=== PATIENT | male | born 1940 | race Caucasian/White ===

== ENCOUNTER 2019-10-02 19:33 | Inpatient (IN) | payer BC ==
--- OUTSIDE RECORDS SUMMARY | 2019-10-02 19:35 | XMS REPORT ---
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
--- OUTSIDE RECORDS SUMMARY | 2019-10-02 19:35 | XMS REPORT | Continuity of Care Document ---
:1940 Author Organization [facility] t Address [address] [place] [address] Care Team Providers Name Role Phone Unavailable Unavailable Unavailable Problems Condition Condition Condition Status Onset Resolution Last Treating Co mments Source Name Details Category Date Date Treatment Clinician Date BPH NOS BPH NOS Problem Active [facility] w[facility] ur [facility] - obs/LUTS obs/LUTS [facility] Allergies, Adverse Reactions, Alerts This patient has no known allergies or adverse reactions. Medications Ordered Filled Start Stop Current Ordering Indication Dosage Frequency Signature Comments Components Source Medication Medication Date Date Medication? Clinician (SIG) Name Name Tamsulosin Tamsulosin Jhonny [address] [facility] HCl HCl 04-04 [facility]a [facility] - 00:00: 00:00 [facility] 00 :[facility] Melatonin Melatonin Yes Jhonny [address] [facility] Elaina in the [facility] - evening [facility] Ranitidine Ranitidine Yes Jhonny [address] [facility] 75 75 Davis as needed kes - [facility] Spiriva Spiriva Yes Jhonny [address] HandiHaler HandiHaler [facility] by [facility] the ent capsule Clinics using the HandiHaler device Metoprolol Metoprolol Yes Jhonny [address] [facility] Tartrate Tartrate [facility] with food [facility] - [facility] tylenol tylenol Yes Jhonny [address] [facility] k[facility] - [facility] Amlodipine Amlodipine Yes Jhonny [address] [facility] Besylate Besylate [facility] - [facility] Procedures This patient has no known procedures. Encounters Start End Encounter Admission Attending Care Care Encounter Source Date/Time Date/Time Type Type Clinicians Facility Department ID 2019-07-05 2019-07-05 [facility] [id number] [facility] 13:11:00 13:11:00 t Specialty/U Haley kes - Specialty rology Memori a /Urology Clinic l Clinic Outpati ent Clinics 2019-05-16 2019-05-16 [facility] [id number] [facility] 14:24:00 14:24:00 t Specialty/U Haley kes - Specialty rology Memori a /Urology Clinic l Clinic Outpati ent Clinics 2019-04-17 2019-04-17 [facility] [id number] [facility] 11:33:00 11:33:00 t Specialty/U Haley kes - Specialty rology Memori a /Urology Clinic l Clinic Outpati ent Clinics 2019-04-13 2019-04-13 [facility] [id number] [facility] 16:15:00 16:15:00 t Specialty/U Haley kes - Specialty rology Memori a /Urology Clinic l Clinic Outpati ent Clinics 2019-04-04 2019-04-04 [facility] [id number] [facility] 15:00:00 15:00:00 t Specialty/U Haley kes - Specialty rology Memori a /Urology Clinic l Clinic Outpati ent Clinics 2019-03-13 2019-03-13 [facility] [id number] [facility] 11:23:00 11:23:00 t Specialty/U Haley kes - Specialty rology Memori a /Urology Clinic l Clinic Outpati ent Clinics 2019-03-10 2019-03-10 [facility] [id number] [facility] 10:43:00 10:43:00 t Specialty/U Haley kes - Specialty rology Memori a /Urology Clinic l Clinic Outpati ent Clinics 2019-02-23 2019-02-23 [facility] [id number] [facility] 14:00:00 14:00:00 t Specialty/U Haley kes - Specialty rology Memori a /Urology Clinic l Clinic Outpati ent Clinics Results This patient has no known results.
[2019-10-02] MEDS ORDERED: ONDANSETRON 4 MG/2 ML VIAL ONE (21:04)
[2019-10-02] MEDS ORDERED: PANTOPRAZOLE 40 MG INJ ONE (21:05)
--- NOTE | 2019-10-02 21:08 | RAD REPORT ---
EXAM DESCRIPTION: RAD - Chest Single View - 10/02/2019 8:57 pm CLINICAL HISTORY: CHEST PAIN Chest pain. COMPARISON: Chest Pa And Lat (2 Views) dated 02/01/2019; Abdomen 1 View (KUB) dated 01/06/2019; Ches t Pa And Lat (2 Views) dated 01/06/2019; CHEST PA AND LAT 2 VIEW dated 05/11/2012 FINDINGS: Portable technique limits examination quality. 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 The heart is normal in size. No displaced fractures. IMPRESSION: Mild diffuse COPD.
[2019-10-02 21:23] LABS: Absolute Lymphocytes (CBC) 0.8 K/uL (0.7-4.9); Basophils % 0.5 % (0-1.3); Hematocrit 36.9 % (39.6-49.0); Lymphocytes % 14.8 % (15.3-44.8); MPV 8.9 fL (7.6-11.3); RBC Red Blood Cell Count 3.71 M/uL (4.33-5.43)
[2019-10-02 21:24] LABS: Protime INR 0.91
[2019-10-02 22:08] LABS: ALT/SGPT 41 U/L (12-78); AST/SGOT 41 U/L (15-37); Albumin 3.8 g/dL (3.4-5.0); Alkaline Phosphatase 53 U/L (45-117); BUN Blood Urea Nitrogen 10 mg/dL (7-18); Bicarbonate 21 mmol/L (21-32); Bilirubin Direct 0.5 mg/dL (0-0.2); Bilirubin Total 1.8 mg/dL (0.2-1.0); Glucose Level 89 mg/dL (74-106); Magnesium 1.8 mg/dL (1.8-2.4); NT PRO-BNP 357 pg/mL (<450); Protein, Total 6.9 g/dL (6.4-8.2); Troponin (Emerg Dept Use Only) < 0.02 ng/mL (0.0-0.045)
[2019-10-02 22:09] LABS: Sodium Level 115 mmol/L (136-145)
[2019-10-02] MEDS ORDERED: FENTANYL CITR 100 MCG/2 ML ONE (22:15)
[2019-10-02] MEDS ORDERED: NA CHLORIDE 0.9% 1,000 ML ONE (22:22)
--- NOTE | 2019-10-02 22:37 | ER ---
Nurse's Notes [facility] Name: Frank Manzanares Jr Age: 78 yrs Sex: Male : 1940 Arrival Date: 10/02/2019 Time: 19:37 Bed 23 Private MD: Pankaj Carlos C Diagnosis: Hyponatremia;Muscle weakness (generalized);Vomiting;Altered mental status, unspecified Presentation: 10/01 19:37 Chief complaint: EMS states: pt was seen in the providers office for difficulty sg urinating, had a catheter inserted to drain bladder, blood tinged urine with bright red clots. At home after the visit the patient started having general weakness and was unable to get into the car to come to the ED so EMS was contacted. EMS report the patient to have CP once arrived at the ED. Coronavirus screen: Client denies travel out of the [place] in the last 14 days. chills, muscle pain, Client presents with at least one sign or symptom that may indicate coronavirus-19. Ebola Screen: Patient negative for fever greater than or equal to 101.5 degrees Fahrenheit, and additional compatible Ebola Virus Disease symptoms Patient denies exposure to infectious person. Patient denies travel to an Ebola-affected area in the 21 days before illness onset. No symptoms or risks identified at this time. Initial Sepsis Screen: Does the patient meet any 2 criteria? No. Patient's initial sepsis screen is negative. Does the patient have a suspected source of infection? Yes: Dysuria/Frequency/Urgency/UTI. Risk Assessment: Do you want to hurt yourself or someone else? Patient reports no desire to harm self or others. Onset of symptoms was October 02, 2019. Care prior to arrival: None. Transition of care: patient was not received from another setting of care. 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 - Social history:: Smoking status: Patient denies any tobacco usage or history of. Smoking status: Patient reports the use of cigarette tobacco products, smokes one-half pack cigarettes per day. Screenin:05 Abuse screen: Denies threats or abuse. Denies injuries from another. Nutritional lp1 screening: No deficits noted. Tuberculosis screening: No symptoms or risk factors identified. Fall Risk None identified. Assessment: 20:04 Reassessment: Marlyn- Daughter for [phone]. sg 20:05 General: Appears uncomfortable, Behavior is appropriate for age. Pain: Complains of lp1 pain in suprapubic area Pain does not radiate. Pain began gradually. Neuro: Level of Consciousness is awake, alert, obeys commands, Oriented to person, place, situation. Cardiovascular: Patient's skin is warm and dry. Respiratory: Respiratory effort is even. GI: Abdomen is non-distended. : Reports inability to void, since 1400. EENT: No signs and/or symptoms were reported regarding the EENT system. Derm: Skin is pink, warm \\T\\ dry. Musculoskeletal: No deficits noted. 21:00 Reassessment: Patient complaint of neck pain and nausea; "I think my acid reflux is lp1 acting up"; Provider notified. 21:33 Reassessment: Patient's HOB readjusted for comfort; given cell phone to call daughter; lp1 complaint of pain to back of neck, states chronic pain; Provider notified. 22:40 Reassessment: Verbal order from provider to insert Church catheter. 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 10/02 00:00 Reassessment: Patient appears in no apparent distress at this time. Neuro: Level of lp1 Consciousness is awake, alert, obeys commands, Oriented to person, place, situation, Patient seems frustrated at ability to get words out, answering appropriately; speech is clear. 00:00 Reassessment: Aware of pending admission. lp1 01:06 Reassessment: Patient appears in no apparent distress at this time. Patient resting, lp1 eyes closed, respirations even. Vital Signs: 10/01 19:37 BP 136 / 77; Pulse 77; Resp 16; Temp 97.6(O); Pulse Ox 100% on R/A; sg 20:00 BP 151 / 81; Pulse 77; Resp 20; Pulse Ox 99% on R/A; lp1 21:00 BP 158 / 83; Pulse 75; Resp 20; Pulse Ox 99% on R/A; lp1 22:00 BP 123 / 94; Pulse 78; Resp 20; Pulse Ox 98% on R/A; lp1 23:00 BP 177 / 98; Pulse 84; Resp 20; Pulse Ox 97% on R/A; lp1 10/02 00:00 BP 166 / 88; Pulse 75; Resp 16; Temp 98.2(O); Pulse Ox 97% on R/A; lp1 01:06 BP 126 / 85; Pulse 75; Resp 15; Pulse Ox 96% on R/A; lp1 ED Course: 10/01 19:37 Patient arrived in ED. sg 19:37 Pankaj Carlos MD is Private Physician. sg 19:37 Arm band placed on. sg 19:40 Triage completed. sg 19:45 monitoring analyst on. Pulse ox on. NIBP on. lp1 19:45 Patient has correct armband on for positive identification. Placed in gown. Bed in low lp1 position. Call light in reach. 19:54 Marlyn Dill, RN is Primary Nurse. lp1 20:05 Patient maintains SpO2 saturation greater than 95% on room air. lp1 20:07 Bladder scan completed. 154 ml. lp1 20:29 Aureliano Her PA is PHCP. jr8 20:29 Kevin Martinez MD is Attending Physician. jr8 20:45 Missed attempt(s): 20 gauge in right forearm. lp1 20:57 XRAY Chest (1 view) In Process Unspecified. EDMS 21:00 Inserted saline lock: 20 gauge in right antecubital area, using aseptic technique. lp1 21:13 Lab(s) recollected, by me, sent to lab. sg 22:09 Notified Nurse Practitioner and/or Physician Vice President Medical Affairs of a critical lab result(s), NA sg 115, CL 80. 22:35 Pankaj Carlos MD is Hospitalizing Provider. jr8 22:45 Church cath inserted, using sterile technique, 16 Fr., by ia, balloon inflated, to lp1 gravity drainage, urine specimen collected. other blood noted in urine. 22:49 No provider procedures requiring assistance completed. Patient admitted, IV remains in lp1 place. 23:00 Inserted saline lock: 22 gauge in left forearm, using aseptic technique. lp1 Administered Medications: 21:00 Drug: ProTONIX 40 mg Route: IVP; Site: right antecubital; lp1 22:24 Follow up: Response: No adverse reaction lp1 21:00 Drug: Zofran (Ondansetron) 4 mg Route: IVP; Site: right antecubital; lp1 22:24 Follow up: Response: No adverse reaction lp1 22:00 Drug: fentaNYL (PF) 25 mcg Route: IVP; Site: right antecubital; lp1 22:53 Follow up: Response: No adverse reaction; Pain is decreased lp1 22:10 Drug: NS 0.9% 1000 ml Route: IV; Rate: 1 bolus; Site: right antecubital; lp1 10/02 00:18 Follow up: IV Status: Completed infusion; IV Intake: 1000ml lp1 10/01 23:50 Drug: Rocephin 1 grams Route: IV; Rate: calculated rate; Site: left forearm; lp1 18 00:18 Follow up: IV Status: Completed infusion; IV Intake: 10ml lp1 00:19 Drug: NS 0.9% 1000 ml Route: IV; Rate: 75 ml/hr; Site: left forearm; lp1 01:08 Follow up: IV Status: Infusion continued upon admission lp1 Intake: 00:18 IV: 10ml; Total: 10ml. lp1 00:18 IV: 1000ml; Total: 1010ml. lp1 Output: 01:45 Urine: 750ml (Church); Total: 750ml. lp1 Outcome: 10/01 22:36 Decision to Hospitalize by Provider. jr8 22:49 Condition: stable lp1 22:49 Instructed on the need for admit. 10/02 01:30 Admitted to Med/surg via stretcher, room 214, with chart, Report called to Zoey Alexander RN 01:49 Patient left the ED. [facility] Signatures: Dispatcher [employer] EDFrancisco Gong RN RN Marlyn Dill RN RN [facility] Aureliano Her PA PA jr8 Corrections: (The following items were deleted from the chart) 10/01 22:24 21:00 fentaNYL (PF) 25 mcg IVP in right antecubital lp1 [facility] 22:54 22:45 Church cath inserted, using sterile technique, 16 Fr., by ia, balloon inflated, to lp1 gravity drainage, urine specimen collected. [facility] 23:17 19:37 Coronavirus screen: Client denies travel out of the [place] in the last 14 days. At this time, the client does not indicate any symptoms associated with coronavirus-19. 10/02 01:06 10/01 19:41 Home Meds: None; [facility] 10/02 01:06 10/01 19:41 PMHx: None; [facility]
--- NOTE | 2019-10-02 22:37 | EDPHYS ---
Physician Documentation [facility] Name: Frank Manzanares Jr Age: 78 yrs Sex: Male : 1940 Arrival Date: 10/02/2019 Time: 19:37 Bed 23 Private MD: Pankaj Carlos C ED Physician Kevin Martinez HPI: 10/01 23:10 This 78 yrs old Male presents to ER via EMS with complaints of General jr8 Weakness, Chest Pain > 30 y/o. 23:10 The patient presents with urinary symptoms, retention, unable to void, Last void was jr8 this morning. Onset: The symptoms/episode began/occurred acutely, today. Modifying factors: The symptoms are alleviated by nothing, the symptoms are aggravated by urinating. Associated signs and symptoms: Pertinent positives: hematuria. Severity of symptoms: At their worst the symptoms were moderate, in the emergency department the symptoms are unchanged. The patient has experienced similar episodes in the past, a few times. The patient has been recently seen by a physician:. Patient stated that he saw urology today and had bladder washout for known bladder mass. Suppose to have biopsy in the future. Was having mild retention at the time. Las void since then was late morning/early afternoon. Stated that he is now having retention again. Stated that since then he has also felt unwell in general. Feels dazed, fatigued, generally weak, and now with vomiting . 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 - Social history:: Smoking status: Patient denies any tobacco usage or history of. Smoking status: Patient reports the use of cigarette tobacco products, smokes one-half pack cigarettes per day. ROS: 23:10 Eyes: Negative for injury, pain, redness, and discharge, ENT: Negative for injury, jr8 pain, and discharge, Neck: Negative for injury, pain, and swelling, Respiratory: Negative for shortness of breath, cough, wheezing, and pleuritic chest pain, Back: Negative for injury and pain, MS/Extremity: Negative for injury and deformity, Skin: Negative for injury, rash, and discoloration. 23:10 Cardiovascular: Positive for chest pain, Negative for edema, orthopnea, palpitations, paroxysmal nocturnal dyspnea. 23:10 Abdomen/GI: Positive for nausea, vomiting, Negative for abdominal pain, diarrhea. 23:10 : Positive for small amounts, hematuria, difficulty urinating. 23:10 Neuro: Positive for altered mental status. Exam: 23:10 Eyes: Pupils equal round and reactive to light, extra-ocular motions intact. Lids and jr8 lashes normal. Conjunctiva and sclera are non-icteric and not injected. Cornea within normal limits. Periorbital areas with no swelling, redness, or edema. ENT: Nares patent. No nasal discharge, no septal abnormalities noted. Tympanic membranes are normal and external auditory canals are clear. Oropharynx with no redness, swelling, or masses, exudates, or evidence of obstruction, uvula midline. Mucous membranes moist. Neck: Trachea midline, no thyromegaly or masses palpated, and no cervical lymphadenopathy. Supple, full range of motion without nuchal rigidity, or vertebral point tenderness. No Meningismus. Cardiovascular: Regular rate and rhythm with a normal S1 and S2. No gallops, murmurs, or rubs. Normal PMI, no JVD. No pulse deficits. Respiratory: Lungs have equal breath sounds bilaterally, clear to auscultation and percussion. No rales, rhonchi or wheezes noted. No increased work of breathing, no retractions or nasal flaring. Abdomen/GI: Soft, non-tender, with normal bowel sounds. No distension or tympany. No guarding or rebound. No evidence of tenderness throughout. Back: No spinal tenderness. No costovertebral tenderness. Full range of motion. Skin: Warm, dry with normal turgor. Normal color with no rashes, no lesions, and no evidence of cellulitis. MS/ Extremity: Pulses equal, no cyanosis. Neurovascular intact. Full, normal range of motion. 23:10 Constitutional: The patient appears alert, awake, obviously ill, uncomfortable. 23:10 Neuro: Orientation: to person, place \\T\\ time. Mentation: able to follow commands, slow to respond, Memory: is normal, Cranial nerves: CN I not tested, CN II- XII are normal as tested, visual banerjee are intact. extraocular movements are intact, Facial palsy and sensory deficits are absent. Nystagmus is absent. Speech is clear and appropriate. Tongue strength is normal, Cerebellar function: normal finger to nose testing, heel to herrera testing is normal, Motor: moves all fours, Sensation: no obvious gross deficits, seizure activity, is not displayed by the patient, Abnormal movements: there are no abnormal movements. Vital Signs: 19:37 BP 136 / 77; Pulse 77; Resp 16; Temp 97.6(O); Pulse Ox 100% on R/A; sg 20:00 BP 151 / 81; Pulse 77; Resp 20; Pulse Ox 99% on R/A; lp1 21:00 BP 158 / 83; Pulse 75; Resp 20; Pulse Ox 99% on R/A; lp1 22:00 BP 123 / 94; Pulse 78; Resp 20; Pulse Ox 98% on R/A; lp1 23:00 BP 177 / 98; Pulse 84; Resp 20; Pulse Ox 97% on R/A; lp1 10/02 00:00 BP 166 / 88; Pulse 75; Resp 16; Temp 98.2(O); Pulse Ox 97% on R/A; lp1 01:06 BP 126 / 85; Pulse 75; Resp 15; Pulse Ox 96% on R/A; lp1 MDM: 10/01 20:31 Patient medically screened. [facility] 22:34 Data reviewed: vital signs, nurses notes, lab test result(s), EKG, radiologic studies, [facility] plain films. Data interpreted: Pulse oximetry: on room air is 99 %. Interpretation: normal. Counseling: I had a detailed discussion with the patient and/or guardian regarding: the historical points, exam findings, and any diagnostic results supporting the discharge/admit diagnosis, lab results, radiology results, the need for further work-up and treatment in the hospital. 10/01 20:30 Order name: Basic Metabolic Panel; Complete Time: 22:33 [facility] 10/01 20:30 Order name: CBC with Diff; Complete Time: 21:57 [facility] 10/01 20:30 Order name: LFT's; Complete Time: 22:33 10/01 20:30 Order name: Magnesium; Complete Time: 22:33 10/01 20:30 Order name: NT PRO-BNP; Complete Time: 22:33 10/01 20:30 Order name: PT-INR; Complete Time: 21:57 10/01 20:30 Order name: Troponin (emerg Dept Use Only); Complete Time: 22:33 10/01 20:30 Order name: XRAY Chest (1 view); Complete Time: 21:57 10/01 22:59 Order name: Urinalysis W/Microscopic; Complete Time: 23:36 EDMS 10/01 23:14 Order name: COVID-19 sg 10/02 01:11 Order name: SARS-COV-2 RT PCR; Complete Time: 01:36 EDMS 10/01 20:30 Order name: EKG; Complete Time: 20:30 10/01 20:30 Order name: Cardiac monitoring; Complete Time: 20:30 10/01 20:30 Order name: EKG - Nurse/Tech; Complete Time: 21:10 10/01 20:30 Order name: IV Saline Lock; Complete Time: 21:10 10/01 20:30 Order name: Labs collected and sent; Complete Time: 21:10 10/01 20:30 Order name: O2 Per Protocol; Complete Time: 20:30 10/01 20:30 Order name: O2 Sat Monitoring; Complete Time: 20:30 10/01 23:07 Order name: Gorge; Complete Time: 23:17 Administered Medications: 21:00 Drug: ProTONIX 40 mg Route: IVP; Site: right antecubital; lp1 22:24 Follow up: Response: No adverse reaction lp1 21:00 Drug: Zofran (Ondansetron) 4 mg Route: IVP; Site: right antecubital; lp1 22:24 Follow up: Response: No adverse reaction lp1 22:00 Drug: fentaNYL (PF) 25 mcg Route: IVP; Site: right antecubital; lp1 22:53 Follow up: Response: No adverse reaction; Pain is decreased lp1 22:10 Drug: NS 0.9% 1000 ml Route: IV; Rate: 1 bolus; Site: right antecubital; lp1 10/02 00:18 Follow up: IV Status: Completed infusion; IV Intake: 1000ml 1 10/01 23:50 Drug: Rocephin 1 grams Route: IV; Rate: calculated rate; Site: left forearm; lp1 10/02 00:18 Follow up: IV Status: Completed infusion; IV Intake: 10ml lp1 00:19 Drug: NS 0.9% 1000 ml Route: IV; Rate: 75 ml/hr; Site: left forearm; lp1 01:08 Follow up: IV Status: Infusion continued upon admission lp1 Disposition: 10:49 Co-signature as Attending Physician, Kevin Martinez MD I agree with the assessment and karissa plan of care. Disposition: 10/02/19 22:36 Hospitalization ordered by Pankaj Carlos for Inpatient Admission. Preliminary diagnosis are Hyponatremia, Muscle weakness (generalized), Vomiting, Altered mental status, unspecified. - Bed requested for Telemetry/MedSurg (Inpatient). - Status is Inpatient Admission. lp1 - Condition is Fair. - Problem is new. - Symptoms have improved. Signatures: Dispatcher [employer] EDPR Francisco Hoover, RN Kevin Freeman MD MD cha Pena, Laura RN RN 1 Aureliano Her PA PA 8 Beronica Guzman, RN RN cg Corrections: (The following items were deleted from the chart) 10/01 22:59 22:54 URINALYSIS+U.LAB.BRZ ordered. [facility] 22:59 22:54 UA MICROSCOPIC+U.LAB.BRZ ordered. [facility] 10/02 01:06 10/01 19:41 Home Meds: None; [facility] 10/02 01:06 10/01 19:41 PMHx: None; [facility] 10/02 01:13 10/01 22:36 Hospitalization Ordered by A Breanna [facility] for Inpatient Admission. Preliminary cg diagnosis is Hyponatremia; Muscle weakness (generalized); Vomiting; Altered mental status, unspecified. Bed requested for Telemetry/MedSurg (Inpatient). Status is Inpatient Admission. Condition is Fair. Problem is new. Symptoms have improved. jr8 10/02 01:49 01:13 10/02/2019 22:36 Hospitalization Ordered by A Breanna S[facility]A for Inpatient Admission. lp1 Preliminary diagnosis is Hyponatremia; Muscle weakness (generalized); Vomiting; Altered mental status, unspecified. Bed requested for Telemetry/MedSurg (Inpatient). Status is Inpatient Admission. Condition is Fair. Problem is new. Symptoms have improved. cg
[2019-10-02 23:07] LABS: Urine Appearance TURBID; Urine Blood 3+ (NEG); Urine Glucose NEGATIVE (NEG); Urine Protein 3+ (NEG); Urine Specific Gravity 1.015 (1.005-1.030)
[2019-10-02 23:12] LABS: Urine Color RED
[2019-10-02 23:18] LABS: Urine Bilirubin NEGATIVE (NEG)
[2019-10-02 23:31] LABS: Urine Culture Reflex Order REFLEXED; Urine RBC TNTC /HPF (NONE SEEN)
[2019-10-02 23:35] LABS: Urine Bacteria 20-50 /HPF (NONE SEEN)
[2019-10-03] MEDS ORDERED: NA CHLORIDE 0.9% 1,000 ML ONE (00:02)
[2019-10-03] MEDS ORDERED: CEFTRIAXONE/SWI 1gm 1 GM/10 ML SYR ONE (00:02)
[2019-10-03] MEDS: NA CHLORIDE 0.9% 1,000 ML IV SCH ×3 (01:08→14:28)
[2019-10-03] MEDS ORDERED: ONDANSETRON 4 MG/2 ML VIAL IV PRN (01:08)
[2019-10-03 02:30] VITALS: BMI 24.2
[2019-10-03] MEDS: ACETAMINOPHEN 500 MG TAB PO PRN ×2 (03:05→21:48)
[2019-10-03 04:21] LABS: Absolute Lymphocytes (CBC) 0.8 K/uL (0.7-4.9); Basophils % 0.1 % (0-1.3); Hematocrit 34.8 % (39.6-49.0); Lymphocytes % 9.6 % (15.3-44.8); MPV 9.6 fL (7.6-11.3); RBC Red Blood Cell Count 3.47 M/uL (4.33-5.43)
[2019-10-03 04:31] LABS: BUN Blood Urea Nitrogen 8 mg/dL (7-18); Bicarbonate 20 mmol/L (21-32); Glucose Level 91 mg/dL (74-106); Sodium Level 120 mmol/L (136-145)
[2019-10-03] MEDS: CEFTRIAXONE/SWI 1gm 1 GM/10 ML SYR IV SCH ×2 (08:45→21:47)
[2019-10-03] MEDS ORDERED: SODIUM CHLORIDE 0.9% 10ML INJ IV PRN (11:23)
[2019-10-03] MEDS ORDERED: PANTOPRAZOLE 40 MG INJ IVP ONE (11:23)
[2019-10-03 12:51] LABS: BUN Blood Urea Nitrogen 6 mg/dL (7-18); Bicarbonate 21 mmol/L (21-32); Glucose Level 123 mg/dL (74-106); Potassium 3.8 mmol/L (3.5-5.1); Sodium Level 120 mmol/L (136-145); Thyroid Stimulating Hormone 0.617 uIU/mL (0.360-3.740)
--- NOTE | 2019-10-03 15:12 | RAD REPORT ---
EXAM DESCRIPTION: CT - Chest Abdomen Pelvis W Cont - 10/03/2019 1:57 pm CLINICAL HISTORY: Chest and abdominal pain. Hyponatremia COMPARISON: Not available TECHNIQUE: Computed axial tomography of the chest, abdomen and pelvis was obtained. 100 cc Isovue-30 0 was administered intravenously. Oral contrast was not requested. This limits evaluation of bowel. All CT scans are performed using dose optimization technique as appropriate and may include automated exposure control or mA/KV adjustment according to patient size. FINDINGS: The lungs are moderately hyperaerated. Lungs are clear. No mediastinal or hilar lymphadenopathy No pleural effusion Trace amount of ascites. Small renal cysts. Tiny nonobstructing left renal calculus. Liver, spleen, pancreas and adrenals unremarkable [place] catheter within the bladder. Mild enlargement of prostate gland. 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 The age is indeterminate although it does having a more acute and chronic appearance
[2019-10-03 18:14] LABS: Potassium 3.5 mmol/L (3.5-5.1)
[2019-10-03] MEDS ORDERED: MELATONIN 5 MG TABLET PO SCH (21:00)
[2019-10-03] MEDS ORDERED: METOPROLOL XL 25 MG TAB PO SCH (21:00)
--- NOTE | 2019-10-04 01:11 | HP ---
Date of Admission: 10/02/2019 Chief Complaint: Blood in urine and trouble voiding. History Of Present Illness: This is a 78-year-old male patient, who used to see Dr. Melara and now he sees Dr. Delaney, recently started to have gross hematuria and then he had trouble voiding. This happened over past weekend, so he started drinking lot of water and got better. Yesterday, he went to Dr. Delaney's office and saw his nurse practitioner, who placed the catheter in the bladder, provided some irrigation, and removed the catheter and he was sent home. After he went home, he started to have same problem with blood in urine, and once again, the patient had trouble voiding, so he came to emergency room. After he was evaluated, he was admitted to the hospital. Pennington catheter was placed in the emergency room. The patient denies any vomiting or diarrhea. Allergies: NO KNOWN ALLERGIES. Medications: List reviewed. Review of Systems: Genitourinary: As mentioned above. All other systems reviewed and negative. Past Medical History: Significant for mixed hyperlipidemia, hyponatremia, hypertension, COPD, thrombophlebitis of left upper extremity in Jun, 2018 treated with four months of Xarelto, diverticulosis, GERD, high PSA, BPH, osteoarthritis, renal cyst, fatty liver disease. Past Surgical History: Inguinal hernia repair. Family History: Father had cirrhosis of liver due to alcohol use and mother committed suicide. Social History: Positive for smoking. Use of alcohol, 1 glass of wine daily. Physical Examination: Vital Signs: Temperature 98.2, pulse 90, respiratory rate 18, blood pressure 136/82, oxygen saturation 98%. Height 5 feet 6 inches, weight 149 pounds. General: Awake, alert, oriented, not in distress. HEENT: Head atraumatic, normocephalic. Conjunctivae nonerythematous. Sclerae white. Mouth, no thrush or edema noted. Ears/Nose, no mass, lesion, discharge noted. Neck: Supple. No JVD, lymph nodes, bruit, thyromegaly noted. Lungs: Bilateral good equal air entry. Clear to auscultation. No rhonchi. No rales. Heart: Normal heart sounds, no murmur or gallop. Abdomen: Soft, bowel sounds normal. No guarding, rigidity, tenderness, mass, hepatosplenomegaly, distention, or bruit noted. Extremities: No leg edema. No calf tenderness. Skin: No rash, ulcer, cellulitis. Lymphatics: No lymph node enlargement in neck, supraclavicular, infraclavicular region. Neuro: No focal neurological deficit. Chest: Unremarkable. External Genitalia: Deferred. Rectal: Deferred. Laboratory Data: White count 5.7, hemoglobin 13.1, platelets 140 yesterday. This morning, white count 7.9, hemoglobin 12.6, platelets 131. Yesterday, sodium 115, potassium 4, chloride 80, bicarb 21, BUN 10, creatinine 0.82, glucose 89. Total bilirubin 1.8, direct bilirubin 0.5, SGOT 41, SGPT 41, alkaline phosphatase 53. Troponin less than 0.02. This morning, sodium 120, potassium 4, chloride 86, bicarb 20, BUN 8, creatinine 0.71, glucose 91. Urinalysis; 3+ blood, nitrite positive, 2+ esterase, rbc TNTC, bacteria 20 to 50. COVID-19 test negative. Chest x-ray shows changes of COPD. Impression: 1. Hyponatremia. 2. Gross hematuria. 3. Urinary tract infection. 4. Anemia. 5. Chronic obstructive pulmonary disease. 6. Hypertension. 7. Mixed hyperlipidemia. 8. GERD. 9. Diverticulosis. Plan: We will go ahead and admit him to hospital for further evaluation and management of this problem. The patient is appropriate for inpatient and is expected to spend 2 midnights in hospital. We will continue IV fluid. The patient does not have any confusion or nausea type of problem. We will monitor his sodium level, and at this point considering sodium level has improved overnight, there is no need for hypertonic saline solution, but if it becomes necessary, we will consider that. Repeat sodium level done today around noontime was 120, so we will follow up with another sodium level this evening. CAT scan of the chest, abdomen, and pelvis was ordered and urine osmolality, serum osmolality, TSH, and triglyceride will be done and we will follow up on results. Consult urologist, Dr. Delaney and I will see him tomorrow for followup. The patient has SCD in place for DVT prophylaxis. His urine is yellow in color with some slight tinge of blood noted, but there is no gross hematuria like he had yesterday. EDA/MODL Voice ID: [id number] MTDD
[2019-10-04] MEDS: NA CHLORIDE 0.9% 1,000 ML IV SCH (02:59)
[2019-10-04 05:54] LABS: Absolute Lymphocytes (CBC) 1.2 K/uL (0.7-4.9); Basophils % 0.8 % (0-1.3); Lymphocytes % 18.4 % (15.3-44.8); MPV 9.4 fL (7.6-11.3); RBC Red Blood Cell Count 3.84 M/uL (4.33-5.43)
[2019-10-04 06:12] LABS: Potassium 3.4 mmol/L (3.5-5.1)
[2019-10-04] MEDS ORDERED: POTASSIUM CL SA 10 MEQ TAB PO ONE (07:07)
[2019-10-04] MEDS: CEFTRIAXONE/SWI 1gm 1 GM/10 ML SYR IV SCH (08:29)
[2019-10-04] MEDS ORDERED: AMLODIPINE 5 MG TAB PO SCH ×2 (09:00)
[2019-10-04] MEDS ORDERED: PANTOPRAZOLE 40 MG INJ IVP SCH (09:00)
[2019-10-04] MEDS ORDERED: HOME MED [TIOTROPIUM 5 SPRAYS/INHALER] IH SCH (09:00)
[2019-10-04 11:41] VITALS: O2SAT 97
--- NOTE | 2019-10-04 14:57 | RAD REPORT ---
EXAM DESCRIPTION: US - UPPER EXTREMITY VENOUS UNILATE - 10/04/2019 2:44 pm CLINICAL HISTORY: rule out DVT Left arm swelling and edema. COMPARISON: UPPER EXTREMITY VENOUS UNILATE dated 09/14/2018 FINDINGS: Left upper extremity venous system was interrogated with Doppler technique. Normal flow, c ompressibility and augmentation was noted. There is no DVT present. IMPRESSION: No evidence of left upper extremity deep venous thrombosis.
[2019-10-04 16:20] VITALS: BP 128/77; TEMP 98
--- NOTE | 2019-10-05 05:35 | DS ---
Date of Discharge: 10/04/2019 Disposition: Discharged to go home. Physical Examination: HEENT: Unremarkable. Lungs: Clear to auscultation. Heart: Sounds normal. Abdomen: Soft. Bowel sounds normal. No guarding, rigidity, tenderness, or distention. Extremities: No leg edema. Laboratory Data: Last white count today 6.5, hemoglobin 13.6, platelets 152. Upon admission white c ount 5.7, hemoglobin 13.1, platelets 140. Last sodium today 131, potassium 3.4, chloride 97, bicarb 28, BUN 5, creatinine 0.96, glucose 92. His triglyceride level is 56. TSH 0.617. Homocysteine leve l pending. Serum osmolality 245. Upon admission, his sodium level was 115. 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 Venous D oppler of left upper extremity was negative for DVT. Hospital Course: This is a 78-year-old male patient admitted to the hospital with complaints of bloo d in urine and trouble voiding. Please see dictated H and P for more information. The patient was e valuated in the ER, he was admitted to the hospital. The patient had a Pennington catheter placed in eddi gency room and IV fluid was started. His hyponatremia problem improved. Potassium was low, which wa s replaced. He was started on diet which he has tolerated very well. Hematuria problem has resolved completely. His urine was clear yellow and I did talk to him about this CAT scan finding indicating blood clot in superior mesenteric artery which appears to be old. The patient has a history of DVT of left arm for which he received Xarelto for about 4 months and this was last year and after he comp leted Xarelto he was advised to take aspirin and he has been taking 81 mg aspirin daily. Yesterday, I did request consultation from his urologist, Dr. Delaney and the patient was not evaluated during hospitalization by him or his nurse practitioner, and when I contacted him today discussed about t he details he had. Dr. Delaney called me, who informed me that he will try to schedule surgery for hi s bladder tumor which he is concerned about possibility of bladder cancer and he is planning to do th is surgery probably beginning of next month. He was also informed about the patient being on aspirin and he would like for patient to stop aspirin for 5-7 days if possible. I have informed him that on ce his scheduled surgery date, he should advise the patient to stop aspirin 1 week before the surgery and I have informed the patient about the same thing also. I also talked to Dr. Lopez and [place] her to follow up on the patient on an outpatient basis and she will have her office schedule ap pointment probably for sometime next month. Workup was done for hypercoagulable state and we will fo llow up on that result. Meanwhile, at this point, patient does not need any anticoagulation therapy, he should restart his aspirin 81 daily, and he was made aware of that today. Upon discharge, the navin ruiz was advised to continue all his previously prescribed home medication including aspirin 81 mg d aily. Follow up at my office next week. Follow up with Dr. Lopez and her office will contact t he patient for appointment as well as follow up with Dr. Delaney for surgery for bladder tumor. The p atient has significant generalized weakness and we did offer him to consider to go to inpatient rehab , which he refused and we also offered him home health and home physical therapy and he initially ref used it, but later on, he agreed to have home health and home physical therapy. I did inform him abo ut names of local home health agency and he told me that he will talk to his csfhmlur-dw-sde who is a nurse and once they come up with the name of the agency, they will contact my office so we can go ah ead and request home health care services with home physical therapy. The [facility] assist him at home until his weakness problem improves. Final Diagnoses: 1.Hyponatremia. 2.Gross hematuria. 3.Urinary tract infection. 4.Rule out bladder cancer. 5.Anemia. 6.Chronic obstructive pulmonary disease. 7.Hypertension. 8.Mixed hyperlipidemia. 9.Gastroesophageal reflux disease. 10.Diverticulosis. 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 EDA/MODL Voice ID: [id number] Report ID: [id number]
--- NOTE | 2019-10-05 08:46 | EKG ---
Test Date: 2019-10-02 Test Time: 20:42:03 Coverage Specialist: MELANIA MEASUREMENT RESULTS: Intervals: Rate: 76 MI: 122 QRSD: 94 QT: 386 QTc: 434 [place]: P: 72 MI: 122 QRS: 49 T: 71 INTERPRETIVE STATEMENTS: Normal sinus rhythm Cannot rule out Anteroseptal infarct, age undetermined Abnormal ECG Compared to ECG 11/09/2014 12:05:50 No significant changes Electronically Signed On 10-05-19 08:39:05 CDT by Andrew Parnell
== END 2019-10-04 16:45 | disposition home or self-care (01) | DRG 641 ==
LOC: ER 19:33 → ERHOLD 23:25 → 2ND 10-03 01:31
PROVIDERS: ADMIT Internal Medicine; ATTEND Internal Medicine
DX: E87.1 Hypo-osmolality and hyponatremia (principal); N39.0 Urinary tract infection, site not specified; R31.0 Gross hematuria; I10 Essential (primary) hypertension; J44.9 Chronic obstructive pulmonary disease, unspecified; K21.9 Gastro-esophageal reflux disease without esophagitis; F17.200 Nicotine dependence, unspecified, uncomplicated; D64.9 Anemia, unspecified; E78.2 Mixed hyperlipidemia; C67.9 Malignant neoplasm of bladder, unspecified; K57.90 Diverticulosis of intestine, part unspecified, without perforation or abscess without bleeding; Z79.82 Long term (current) use of aspirin; Z79.899 Other long term (current) drug therapy; Z53.29 Procedure and treatment not carried out because of patient's decision for other reasons; Z11.59 Encounter for screening for other viral diseases
CPT/HCPCS: 36415; 51702; 71045; 71260; 74177; 80048; 80061; 80076; 81001; 81240; 81241; 83090; 83735; 83880; 83930; 83935; 84443; 84484; 85025; 85300; 85302; 85305; 85306; 85610; 86038; 87086; 87088; 93005; 93971; 96361; 96365; 96375; 99285; C9113; J0696; J2405; J3010; J7030; Q9967; U0003

== ENCOUNTER 2019-10-24 07:05 | Day surgery (SDC) | payer BC ==
[2019-10-19 16:18] LABS: Absolute Lymphocytes (CBC) 1.1 K/uL (0.7-4.9); Albumin 4.1 g/dL (3.4-5.0); Bilirubin Total 0.7 mg/dL (0.2-1.0); Hematocrit 41.4 % (39.6-49.0); Lymphocytes % 22.5 % (15.3-44.8); MPV 9.4 fL (7.6-11.3); Potassium 4.2 mmol/L (3.5-5.1); Protein, Total 7.9 g/dL (6.4-8.2); RBC Red Blood Cell Count 3.99 M/uL (4.33-5.43)
[2019-10-19 16:19] LABS: Protime INR 0.91
--- OUTSIDE RECORDS SUMMARY | 2019-10-24 07:09 | XMS REPORT ---
[...] Medications Results No Known Results Summary Purpose eClinicalWorks Submission
--- OUTSIDE RECORDS SUMMARY | 2019-10-24 07:09 | XMS REPORT ---
[...] Medications Results No Known Results Summary Purpose [employer]Clinical[employer] Submission
--- OUTSIDE RECORDS SUMMARY | 2019-10-24 07:09 | XMS REPORT ---
:1940 Author Organization eClinicalWorks Care Team Providers Name Role Phone Mackenzie David Provider Role Unavailable Allergies, Adverse Reactions, Alerts Substance Reaction Event Type N.K.D.A. Info Not Available Non Drug Allergy Problems Problem Type Condition Code Onset Dates Condition Statu s Problem BPH loc w/o ur obs/LUTS N40.0 Acti ve Problem BPH NOS w/o ur obs/LUTS N40.0 Acti ve Assessment BPH loc w/o ur obs/LUTS N40.0 Acti ve Assessment Incomplete bladder emptying R33.9 Active Assessment Urine retention R33.9 Active Assessment Gross hematuria R31.0 Active Medications Medication Code Code Instructions Start End Status Dosage System Date Date Spiriva [facility] 47114616212 18 MCG Active 1 capsule by HandiHaler Inhalation Once inhal ing the a day contents of the capsule using the HandiHaler device Metoprolol ND 42686651827 25 MG Orally Active 1 ta blet with Tartrate Twice a day food Bactrim [facility] 04684686601 400-80 MG Oct 01, Oct 04, Active 1 tablet Orally Once a 20192019 Ranitidine 75 NDC 0 75 MG Orally Active 1 tab let as Twice a day needed Melatonin ND 59497074005 5 MG Orally Active 1 tabl et in Once a day the evening Amlodipine ND 12720260109 5 MG Orally Active 1 tab let Besylate Once a day tylenol NDC 0 Oral Active 1 tab Results No Known Results Summary Purpose eClinicalWorks Submission
--- OUTSIDE RECORDS SUMMARY | 2019-10-24 07:09 | XMS REPORT | Continuity of Care Document ---
:1940 Author Organization [facility] Address [address] [place] [address] Care Team Providers Name Role Phone Unavailable Unavailable Unavailable Problems Condition Condition Condition Status Onset Resolution Last Treating Co mments Source Name Details Category Date Date Treatment Clinician Date BPH NOS BPH NOS Problem Active [facility]S [facility] Allergies, Adverse Reactions, Alerts This patient has no known allergies or adverse reactions. Medications Ordered Filled Start Stop Current Ordering Indication Dosage Frequency Signature Comments Components Source Medication Medication Date Date Medication? Clinician (SIG) Name Name Carlos Lucasrijolly 2019- Yes Mackenzie [address] 8-17 08-20 [facility] Out[facility] ent Clinics Melatonin Melatonin Yes Mackenzie [address] [facility]ie in the [facility] - evening [facility] Out[facility] Ranitidine Ranitidine Yes Mackenzie [address] [facility] 75 75 Frankie as needed [facility] Spiriva Spiriva Yes Mackenzie [address] [facility] HandiHaler HandiHaler Frankie by [facility] - inhaling [facility] the l contents Outpati of the ent capsule Clinics using the HandiHaler device Metoprolol Metoprolol Yes Mackenzie [address] [facility] Tartrate Tartrate [facility] tylenol tylenol Yes Mackenzie [address] [facility] Outpati ent Clinics Amlodipine Amlodipine Yes Mackenzie [address] [facility] Besylate Besylate [place] [facility] - [facility] Procedures This patient has no known procedures. Encounters Start End Encounter Admission Attending Care Care Encounter Source Date/Time Date/Time Type Type Clinicians Facility Department ID 2019-10-13 2019-10-13 [facility] [id number] [facility] 11:29:00 11:29:00 t Specialty/U [facility] - Specialty rology [facility] /Urology Clinic l Clinic Outpati ent Clinics 2019-10-10 2019-10-10 [facility] [id number] [facility] 16:12:00 16:12:00 t Specialty/U [facility] - Specialty rology [facility] /Urology Clinic l Clinic Outpati ent Clinics 2019-10-09 2019-10-09 [facility] [id number] [facility] 12:54:00 12:54:00 t Specialty/U [facility] - Specialty rology [facility] /Urology Clinic l Clinic Outpati ent Clinics 2019-10-02 2019-10-02 [place] [place] [id number] [facility] 15:00:00 15:00:00 t Specialty/U [facility] - Specialty rology [facility] /Urology Clinic l Clinic Outpati ent Clinics 2019-10-02 2019-10-02 [facility] [place] [facility] [id number] [facility] 13:33:00 13:33:00 t Specialty/U [facility]es - Specialty rology [facility] /Urology Clinic l Clinic Outpati ent Clinics 2019-07-05 2019-07-05 [facility] [id number] [facility] 13:11:00 13:11:00 t Specialty/U [facility] - Specialty rology [facility] /Urology Clinic l Clinic Outpati ent Clinics 2019-05-16 2019-05-16 [facility] [id number] [facility] 14:24:00 14:24:00 t Specialty/U [facility] - Specialty rology [facility] /Urology Clinic l Clinic Outpati ent Clinics 2019-04-17 2019-04-17 [facility] [id number] [facility] 11:33:00 11:33:00 t Specialty/U [facility]aley kes - Specialty rology [facility] /Urology Clinic l Clinic Outpati ent Clinics 2019-04-13 2019-04-13 [facility] [id number] [facility] 16:15:00 16:15:00 t Specialty/U [facility]aley kes - Specialty rology [facility] /Urology Clinic l Clinic Outpati ent Clinics 2019-04-04 2019-04-04 [facility] [id number] [facility] 15:00:00 15:00:00 t Specialty/U [facility] - Specialty rology [facility] /Urology Clinic l Clinic Outpati ent Clinics 2019-03-13 2019-03-13 Outpatient [facility] [id number] [facility] 11:23:00 11:23:00 t Specialty/U [facility] - Specialty rology [facility] /Urology Clinic l Clinic Outpati ent Clinics 2019-03-10 2019-03-10 Outpatient [place] [facility] [id number] [facility] [address] 10:43:00 10:43:00 t Specialty/U [facility] - Specialty rology [facility] /Urology Clinic l Clinic Outpati ent Clinics 2019-02-23 2019-02-23 Outpatient Tai [facility] [id number] [facility] 14:00:00 14:00:00 t Specialty/U Haley kes - Specialty rology [facility] /[facility] Results This patient has no known results.
[2019-10-24] MEDS ORDERED: LIDOCAINE 2% MPF 5 ML VIAL ONE (07:26)
[2019-10-24] MEDS ORDERED: propofoL 200 MG/20 ML VIAL IV ONE (07:26)
[2019-10-24] MEDS ORDERED: FENTANYL CITR 100 MCG/2 ML ONE (07:26)
[2019-10-24] MEDS ORDERED: ONDANSETRON 4 MG/2 ML VIAL ONE (07:26)
[2019-10-24] MEDS ORDERED: Ringers Lactate 1,000 ML IV ONE (07:41)
[2019-10-24] MEDS ORDERED: CEFTRIAXONE 1 GM/10 ML SYR ONE (08:29)
[2019-10-24] MEDS ORDERED: EPHEDRINE SULF 50 MG/ML VIAL ONE (09:54)
[2019-10-24 13:13] VITALS: BP 157/87; TEMP 98
[2019-10-24 13:14] VITALS: O2SAT 153
== END 2019-10-24 12:25 | disposition home or self-care (01) ==
LOC: OR 07:05
PROVIDERS: ATTEND Internal Medicine Hematology & Oncology
PROC: 0TBB8ZX Excision of Bladder, Via Natural or Artificial Opening Endoscopic, Diagnostic (ICD-10-PCS; principal; 2019-10-24 08:00)
DX: C67.9 Malignant neoplasm of bladder, unspecified (principal); R33.8 Other retention of urine; N40.1 Benign prostatic hyperplasia with lower urinary tract symptoms; R39.14 Feeling of incomplete bladder emptying; J44.9 Chronic obstructive pulmonary disease, unspecified; I10 Essential (primary) hypertension; K21.9 Gastro-esophageal reflux disease without esophagitis; F17.210 Nicotine dependence, cigarettes, uncomplicated; Z20.828 Contact with and (suspected) exposure to other viral communicable diseases
CPT/HCPCS: 36415; 80053; 85025; 85610; 85730; 87086; 87088; 88305; 88307; J0696; J2405; J2704; J3010; J7120; U0002

== ENCOUNTER 2019-10-29 14:11 | Inpatient (IN) | payer BC ==
--- OUTSIDE RECORDS SUMMARY | 2019-10-29 14:13 | XMS REPORT ---
[...] End Status Dosage System Date Date Spiriva [facility] 28291538309 18 MCG Active 1 capsule by HandiHaler Inhalation Once inhal ing the a day contents of the capsule using the HandiHaler device Metoprolol ND 32206957880 25 MG Orally Active 1 ta blet with Tartrate Twice a day food Bactrim [facility] 49873512122 400-80 MG Oct 01, Oct 04, Active 1 tablet Orally Once a 20192019 Ranitidine 75 NDC 0 75 MG Orally Active 1 tab let as Twice a day needed Melatonin ND 52795632314 5 MG Orally Active 1 tabl et in Once a day the evening Amlodipine ND 32783547496 5 MG Orally Active 1 tab let Besylate Once a day tylenol NDC 0 Oral Active 1 tab Results No Known Results Summary Purpose eClinicalWorks Submission
--- OUTSIDE RECORDS SUMMARY | 2019-10-29 14:13 | XMS REPORT ---
[...] Medications Results No Known Results Summary Purpose [employer] Submission
--- OUTSIDE RECORDS SUMMARY | 2019-10-29 14:13 | XMS REPORT | Continuity of Care Document ---
:1940 Author Organization [facility] t Address [address] [place] [address] Care Team Providers Name Role Phone Unavailable Unavailable Unavailable Problems Condition Condition Condition Status Onset Resolution Last Treating Co mments Source Name Details Category Date Date Treatment Clinician Date BPH NOS BPH NOS Problem Active [facility] w[facility]S obs/LUTS [facility] Out[facility] ent Clin[facility] Allergies, Adverse Reactions, Alerts This patient has no known allergies or adverse reactions. Medications Ordered Filled Start Stop Current Ordering Indication Dosage Frequency Signature Comments Components Source Medication Medication Date Date Medication? Clinician (SIG) Name Name Bactrijolly Bactrim 2019- Yes Mackenzie [address] 8-17 08-20 [place] [facility] :[facility] ent Clinics Melatonin Melatonin Yes Mackenzie [address] [facility] [place] in the [facility] - evening [facility] Out[facility] ent [facility] Ranitidine Ranitidine Yes Mackenzie [address] [facility] 75 75 [place] as needed [facility] Spiriva Spiriva Yes Mackenzie [address] [facility] HandiHaler HandiHaler [place] by [facility] - inhaling [facility] the l contents Outpati of the ent capsule Clinics using the HandiHaler device Metoprolol Metoprolol Yes Mackenzie [address] [facility] Tartrate Tartrate [place] with food [facility] tylenol tylenol Yes Mackenzie [address] [facility] Amlodipine Amlodipine Yes Mackenzie [address] [facility] Besylate Besylate [facility] - [facility] Outpati ent Clinics Procedures This patient has no known procedures. Encounters Start End Encounter Admission Attending Care Care Encounter Source Date/Time Date/Time Type Type Clinicians Facility Department ID 2019-10-13 2019-10-13 [facility] [id number] [facility] 11:29:00 11:29:00 t Specialty/[facility] - Specialty rology [facility] /Urology Clinic l Clinic Outpati ent Clinics 2019-10-10 2019-10-10 [place] [id number] [facility] 16:12:00 16:12:00 t Specialty/U [facility]es - Specialty rology [facility] /Urology Clinic l Clinic Outpati ent Clinics 2019-10-09 2019-10-09 [facility] [place] [id number] [address] 12:54:00 12:54:00 t Specialty/U [facility]es - Specialty rology [facility] /Urology Clinic l Clinic Outpati ent Clinics 2019-10-02 2019-10-02 [place] [place] [id number] [facility] 15:00:00 15:00:00 t Specialty/U [facility]aley kes - Specialty rology [facility] /Urology Clinic l Clinic Outpati ent Clinics 2019-10-02 2019-10-02 [facility] [id number] [facility] 13:33:00 13:33:00 t Specialty/U [facility]aley kes - Specialty rology [facility] /Urology Clinic l Clinic Outpati ent Clinics 2019-07-05 2019-07-05 [place] [place] [facility] [id number] [facility] 13:11:00 13:11:00 t Specialty/U [facility]aley kes - Specialty rology [facility] /Urology Clinic l Clinic Outpati ent Clinics 2019-05-16 2019-05-16 [place] [place] [facility] [id number] [facility] 14:24:00 14:24:00 t Specialty/U [facility]aley kes - Specialty rology [facility] /Urology Clinic l Clinic Outpati ent Clinics 2019-04-17 2019-04-17 [place] [facility] [id number] [facility] 11:33:00 11:33:00 t Specialty/U Haley kes - Specialty rology [facility] /Urology Clinic l Clinic Outpati ent Clinics 2019-04-13 2019-04-13 Out[facility] [id number] [facility] 16:15:00 16:15:00 t Specialty/U Haley kes - Specialty rology [facility] /Urology Clinic l Clinic Outpati ent Clinics 2019-04-04 2019-04-04 Outpatient [facility] [id number] [facility] 15:00:00 15:00:00 t Specialty/U [facility]es - Specialty rology [facility] /Urology Clinic l Clinic Outpati ent Clinics 2019-03-13 2019-03-13 Outpatient [facility] [id number] [facility] 11:23:00 11:23:00 t Specialty/U Haley kes - Specialty rology [facility] 2019-03-10 2019-03-10 Outpatient Tai [facility] [id number] [facility] 10:43:00 10:43:00 t Specialty/U [facility]aley kes - Specialty rology [facility] /Urology Clinic l Clinic Outpati ent Clinics 2019-02-23 2019-02-23 Outpatient [facility] [id number] [facility] 14:00:00 14:00:00 t Specialty/U [facility] - Specialty rology [facility] Results This patient has no known results.
[2019-10-29] MEDS ORDERED: ONDANSETRON 4 MG/2 ML VIAL ONE (15:20)
[2019-10-29] MEDS ORDERED: LACTULOSE 20 GM/30 ML UCUP ONE (15:21)
[2019-10-29] MEDS ORDERED: NA CHLORIDE 0.9% 1,000 ML ONE ×2 (15:21→16:51)
[2019-10-29] MEDS ORDERED: BISACODYL 10 MG RECTAL SUPP ONE (15:21)
[2019-10-29 16:06] LABS: Absolute Lymphocytes (CBC) 0.9 K/uL (0.7-4.9); Basophils % 0.5 % (0-1.3); Hematocrit 40.8 % (39.6-49.0); MPV 9.6 fL (7.6-11.3)
[2019-10-29 16:13] LABS: Protime INR 0.9
[2019-10-29 16:21] LABS: ALT/SGPT 40 U/L (12-78); AST/SGOT 40 U/L (15-37); Albumin 4.3 g/dL (3.4-5.0); Alkaline Phosphatase 66 U/L (45-117); BUN Blood Urea Nitrogen 11 mg/dL (7-18); Bicarbonate 24 mmol/L (21-32); Bilirubin Direct 0.5 mg/dL (0-0.2); Bilirubin Total 1.7 mg/dL (0.2-1.0); Glucose Level 86 mg/dL (74-106); Lipase 219 U/L (73-393); Magnesium 2.2 mg/dL (1.8-2.4); NT PRO-BNP 296 pg/mL (<450); Potassium 4.1 mmol/L (3.5-5.1); Protein, Total 7.9 g/dL (6.4-8.2); Troponin (Emerg Dept Use Only) < 0.02 ng/mL (0.0-0.045)
[2019-10-29 16:26] LABS: Sodium Level 119 mmol/L (136-145)
[2019-10-29 16:29] LABS: Urine Blood TRACE (NEG); Urine Glucose NEGATIVE (NEG); Urine Protein NEGATIVE (NEG)
[2019-10-29] MEDS ORDERED: THIAMINE 200 MG/2 ML INJ ONE (16:51)
--- NOTE | 2019-10-29 16:56 | ER ---
Nurse's Notes [facility] Name: Frank Manzanares Jr Age: 79 yrs Sex: Male : 1940 Arrival Date: 10/29/2019 Time: 14:14 Bed 16 Private MD: Diagnosis: Vomiting;Hypo-osmolality and hyponatremia;Tobacco abuse counseling;Constipation;Alcohol abuse;Essential (primary) hypertension Presentation: 10/28 14:26 Chief complaint: N/V, upper back and neck pain, subjective fever, and chills x 3 days. hb Not tolerating fluids. Coronavirus screen: chills, muscle pain, nausea, shaking with chills, vomiting. Client presents with at least one sign or symptom that may indicate coronavirus-19. Standard/surgical mask placed on the client. Provider contacted for isolation considerations. Ebola Screen: No symptoms or risks identified at this time. Initial Sepsis Screen: Does the patient meet any 2 criteria? No. Patient's initial sepsis screen is negative. Does the patient have a suspected source of infection? No. Patient's initial sepsis screen is negative. Risk Assessment: Do you want to hurt yourself or someone else? Patient reports no desire to harm self or others. Onset of symptoms was October 27, 2019. 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 - Social history:: Smoking status: Patient reports the use of cigarette tobacco products, smokes one-half pack cigarettes per day. Screenin:58 Abuse screen: Denies threats or abuse. Denies injuries from another. Nutritional ls4 screening: No deficits noted. Tuberculosis screening: No symptoms or risk factors identified. Fall Risk None identified. Assessment: 14:45 General: Appears in no apparent distress. Behavior is calm, cooperative. ah 14:45 General: Reports chills for 1-2 days. Pain: Complains of pain in general neck and back ah pain. Neuro: Level of Consciousness is awake, alert, obeys commands, Oriented to person, place, time, situation, Appropriate for age. Cardiovascular: Heart tones S1 S2 present Capillary refill < 3 seconds Patient's skin is warm and dry. Respiratory: Airway is patent Respiratory effort is even, unlabored, Respiratory pattern is regular, symmetrical. GI: Bowel sounds present X 4 quads. Abd is soft and non tender Reports nausea. Derm: Skin is intact, is healthy with good turgor. Musculoskeletal: Circulation, motion, and sensation intact. Capillary refill < 3 seconds. 15:45 Reassessment: Patient and/or family updated on plan of care and expected duration. Pain ah level reassessed. Patient is alert, oriented x 3, equal unlabored respirations, skin warm/dry/pink. No needs voiced at this time. 16:45 Reassessment: No changes from previously documented assessment. General:. 17:00 Reassessment: No BM noted at this time. 17:35 Reassessment: Admission ordered prematurely. Awaiting CT results prior to transferring ss patient to floor and awaiting physician to discuss results and plan of care/ admission status. 17:42 Reassessment: Pt to CT VIA stretcher with electroplating technician at this time. ss 19:00 Reassessment: No BM noted at this time. 20:10 Reassessment: Pre void Bladder scan is 545 ml, PVR is 247. [place] 18 church inserted. Vital Signs: 14:26 BP 141 / 85; Pulse 79; Resp 18; Temp 99.2(TE); Pulse Ox 99% on R/A; Weight 67.13 kg; hb Height 5 ft. 6 in. (167.64 cm); Pain 5/10; 15:00 BP 147 / 91; Pulse 71; Resp 16; Pulse Ox 100% ; ah 16:00 BP 142 / 77; Pulse 76; Resp 21; Pulse Ox 97% ; ah 17:00 BP 139 / 79; Pulse 67; Resp 21; Pulse Ox 98% ; ah 18:05 BP 161 / 89; Pulse 78; Resp 16; Pulse Ox 97% ; ah 19:22 BP 137 / 95; Pulse 75; Resp 18; Pulse Ox 98% on R/A; wh 20:41 BP 140 / 88; Pulse 72; Resp 16; Pulse Ox 98% on R/A; 14:26 Body Mass Index 23.89 (67.13 kg, 167.64 cm) ED Course: 14:14 Patient arrived in ED. ds1 14:28 Triage completed. hb 14:29 Arm band placed on. hb 14:54 Kevin Martinez MD is Attending Physician. karissa 14:56 Jennifer Zamora, RN is Primary Nurse. ah 14:58 Patient has correct armband on for positive identification. Bed in low position. Call ls4 light in reach. Side rails up X 1. 15:00 Warm blanket given. Verbal reassurance given. wire coiner on. Pulse ox on. NIBP on. jp3 15:00 Inserted saline lock: 20 gauge in right antecubital area, using aseptic technique. Blood collected. 15:01 Safety checks:. jp3 15:01 Patient maintains SpO2 saturation greater than 95% on room air. jp3 15:19 Note: PO CONTRAST GIVEN TO PTS NURSE, JENNIFER 15;15, TO CALL WHEN PTS FINISHED. bq 16:11 XRAY Chest (1 view) In Process Unspecified. EDMS 16:55 Pankaj Carlos MD is Hospitalizing Provider. karissa 18:33 No provider procedures requiring assistance completed. ah 19:21 Patient admitted, IV remains in place. 20:11 Church cath inserted, using sterile technique, 18 Fr., returned clear yellow urine. Patient tolerated well. Administered Medications: 15:10 Drug: NS 0.9% 1000 ml Route: IV; Rate: 1 bolus; Site: left antecubital; 19:28 Follow up: Response: No adverse reaction; IV Status: Completed infusion 15:10 Drug: Zofran (Ondansetron) 4 mg Route: IVP; Site: left antecubital; 19:24 Follow up: Response: No adverse reaction 15:10 Drug: Dulcolax Suppository 10 mg Route: RI; 19:25 Follow up: Response: No adverse reaction 15:30 Drug: Lactulose 30 grams Volume: 45 ml; Route: PO; 19:24 Follow up: Response: No adverse reaction 16:45 Drug: Thiamine 100 mg Route: IV; Rate: bolus; Site: left antecubital; 18:37 Follow up: Response: No adverse reaction; IV Status: Completed infusion 19:24 Follow up: Response: No adverse reaction; IV Status: Completed infusion 19:27 Follow up: Response: No adverse reaction; IV Status: Completed infusion 16:45 Drug: NS 0.9% 1000 ml Route: IV; Rate: 125 ml/hr; Site: left antecubital; 19:27 Follow up: Response: No adverse reaction; IV Status: Infusion continued upon admission 19:00 Drug: Ativan 1 mg Route: IVP; Site: left antecubital; 19:27 Follow up: Response: No adverse reaction; Marked relief of symptoms; RASS: Alert and wh Calm (0) 19:00 Drug: Rocephin 1 grams Route: IV; Rate: per protocol; Site: left antecubital; 19:26 Follow up: Response: No adverse reaction; IV Status: Completed infusion 19:05 Drug: ProTONIX 40 mg Route: IVP; Site: left antecubital; 19:26 Follow up: Response: No adverse reaction 19:06 Drug: GI Cocktail without - (Maalox Suspension 30 ml, Lidocaine Liquid 2 % 15 ah ml) Route: PO; 19:27 Follow up: Response: No adverse reaction 19:07 Drug: foLIC Acid 1 mg Route: IVPB; Site: left antecubital; 19:26 Follow up: Response: No adverse reaction; IV Status: Completed infusion Outcome: 16:56 Decision to Hospitalize by Provider. [facility] 19:21 Admitted to ER Hold. Please see [facility] for further documentation. 19:21 Condition: stable 19:21 Instructed on the need for admit. 20:45 Admitted to ICU accompanied by nurse, via stretcher, room 11, with chart, Report called to Sesar Garrido RN 20:45 Condition: stable 20:45 Instructed on the need for admit. 20:46 Patient left the ED. mw2 Signatures: Dispatcher [employer] EDKevin Lopez MD MD cha Quilty, Betty bq Sanford, Demi ds1 Rashida Osborn RN RN Marsha Santiago, Lashay Wing RN Rocío Elise mw2 Sam Obrien jp3 Ruby Olmos RN RN 4 Jennifer Zamora RN RN Corrections: (The following items were deleted from the chart) 18:26 18:23 BP 147 / 91; Pulse 71bpm; Resp 16bpm; Pulse Ox 100%; ah ah 20:43 20:41 BP 140 / 88; Pulse 72bpm; Resp 20bpm; Pulse Ox 98% RA; wh wh
--- NOTE | 2019-10-29 16:56 | EDPHYS ---
Physician Documentation [facility] Name: Frank Manzanares Jr Age: 79 yrs Sex: Male : 1940 Arrival Date: 10/29/2019 Time: 14:14 Bed 16 Private MD: ED Physician Kevin Martinez HPI: 10/28 15:03 This 79 yrs old Male presents to ER via Ambulatory with complaints of Nausea. karissa 15:03 The patient presents to the emergency department with nausea, vomiting, that is karissa intermittent. Onset: The symptoms/episode began/occurred 5 day(s) ago. Possible causes: unknown. The symptoms are aggravated by nothing. The symptoms are alleviated by nothing. Associated signs and symptoms: The patient has no apparent associated signs or symptoms. Severity of symptoms: At their worst the symptoms were mild in the emergency department the symptoms are unchanged. The patient has not experienced similar symptoms in the past. 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 - Social history:: Smoking status: Patient reports the use of cigarette tobacco products, smokes one-half pack cigarettes per day. ROS: 15:04 Constitutional: Negative for fever, chills, and weight loss, Eyes: Negative for injury, karissa pain, redness, and discharge, ENT: Negative for injury, pain, and discharge, Neck: Negative for injury, pain, and swelling, Cardiovascular: Negative for chest pain, palpitations, and edema, Respiratory: Negative for shortness of breath, cough, wheezing, and pleuritic chest pain, Back: Negative for injury and pain, : Negative for injury, bleeding, discharge, and swelling, MS/Extremity: Negative for injury and deformity, Skin: Negative for injury, rash, and discoloration, Neuro: Negative for headache, weakness, numbness, tingling, and seizure, Psych: Negative for depression, anxiety, suicide ideation, homicidal ideation, and hallucinations, Allergy/Immunology: Negative for hives, rash, and allergies, Endocrine: Negative for neck swelling, polydipsia, polyuria, polyphagia, and marked weight changes, Hematologic/Lymphatic: Negative for swollen nodes, abnormal bleeding, and unusual bruising. 15:04 Abdomen/GI: Positive for abdominal pain, nausea and vomiting. Exam: 15:04 Constitutional: This is a well developed, well nourished patient who is awake, alert, karissa and in no acute distress. Head/Face: Normocephalic, atraumatic. Eyes: Pupils equal round and reactive to light, extra-ocular motions intact. Lids and lashes normal. Conjunctiva and sclera are non-icteric and not injected. Cornea within normal limits. Periorbital areas with no swelling, redness, or edema. ENT: Nares patent. No nasal discharge, no septal abnormalities noted. Tympanic membranes are normal and external auditory canals are clear. Oropharynx with no redness, swelling, or masses, exudates, or evidence of obstruction, uvula midline. Mucous membranes moist. Neck: Trachea midline, no thyromegaly or masses palpated, and no cervical lymphadenopathy. Supple, full range of motion without nuchal rigidity, or vertebral point tenderness. No Meningismus. Chest/axilla: Normal chest wall appearance and motion. Nontender with no deformity. No lesions are appreciated. Cardiovascular: Regular rate and rhythm with a normal S1 and S2. No gallops, murmurs, or rubs. Normal PMI, no JVD. No pulse deficits. Respiratory: Lungs have equal breath sounds bilaterally, clear to auscultation and percussion. No rales, rhonchi or wheezes noted. No increased work of breathing, no retractions or nasal flaring. Back: No spinal tenderness. No costovertebral tenderness. Full range of motion. Male : Normal genitalia with no discharge or lesions. Skin: Warm, dry with normal turgor. Normal color with no rashes, no lesions, and no evidence of cellulitis. MS/ Extremity: Pulses equal, no cyanosis. Neurovascular intact. Full, normal range of motion. Neuro: Awake and alert, GCS 15, oriented to person, place, time, and situation. Cranial nerves II-XII grossly intact. Motor strength 5/5 in all extremities. Sensory grossly intact. Cerebellar exam normal. Normal gait. Psych: Awake, alert, with orientation to person, place and time. Behavior, mood, and affect are within normal limits. 15:04 Abdomen/GI: Inspection: abdomen appears normal, Bowel sounds: normal, Palpation: mild abdominal tenderness, in all quadrants, Liver: no appreciated palpable abnormalities, Hernia: not appreciated. 16:02 ECG was reviewed by the Attending Physician. [facility] Vital Signs: 14:26 BP 141 / 85; Pulse 79; Resp 18; Temp 99.2(TE); Pulse Ox 99% on R/A; Weight 67.13 kg; hb Height 5 ft. 6 in. (167.64 cm); Pain 5/10; 15:00 BP 147 / 91; Pulse 71; Resp 16; Pulse Ox 100% ; ah 16:00 BP 142 / 77; Pulse 76; Resp 21; Pulse Ox 97% ; ah 17:00 BP 139 / 79; Pulse 67; Resp 21; Pulse Ox 98% ; ah 18:05 BP 161 / 89; Pulse 78; Resp 16; Pulse Ox 97% ; ah 19:22 BP 137 / 95; Pulse 75; Resp 18; Pulse Ox 98% on R/A; wh 20:41 BP 140 / 88; Pulse 72; Resp 16; Pulse Ox 98% on R/A; wh 14:26 Body Mass Index 23.89 (67.13 kg, 167.64 cm) hb MDM: 14:54 Patient medically screened. [facility] 15:05 Data reviewed: vital signs, nurses notes, lab test result(s), EKG, radiologic studies, [facility] CT scan, plain films. 15:05 Differential diagnosis: Nonspecific abd pain, cholecystitis, pancreatitis, karissa diverticulitis, viral gastroenteritis, gastroenteritis, bowel obstruction, diverticulitis, gastritis, non-specific abd pain, urinary tract infection. Data interpreted: monitoring coordinator: rate is 79 beats/min, rhythm is regular, Pulse oximetry: on room air is 99 %. Test interpretation: by ED physician or midlevel provider: ECG, plain radiologic studies. Counseling: I had a detailed discussion with the patient and/or guardian regarding: the historical points, exam findings, and any diagnostic results supporting the discharge/admit diagnosis, lab results, radiology results, the need for outpatient follow up. 16:50 ED course: alexandre pt all labs, alexandre perez. [facility] 10/28 15:02 Order name: Basic Metabolic Panel; Complete Time: 16:45 [facility] 10/28 15:02 Order name: CBC with Diff; Complete Time: 16:24 [facility] 10/28 15:02 Order name: LFT's; Complete Time: 16:45 [facility] 10/28 15:02 Order name: Magnesium; Complete Time: 16:45 [facility] 10/28 15:02 Order name: NT PRO-BNP; Complete Time: 16:45 [facility] 10/28 15:02 Order name: PT-INR; Complete Time: 16:24 [facility] 10/28 15:02 Order name: Troponin (emerg Dept Use Only); Complete Time: 16:45 [facility] 10/28 15:02 Order name: Lipase; Complete Time: 16:45 [facility] 10/28 15:02 Order name: COVID-19 [facility] 10/28 15:49 Order name: Urine Dipstick--Ancillary (enter results) 10/28 15:50 Order name: Urine Dipstick-Ancillary; Complete Time: 16:45 [facility] 10/28 16:26 Order name: Osmolality, Serum; Complete Time: 18:25 [facility] 10/28 16:26 Order name: Urine Osmolality; Complete Time: 18:25 [facility] 10/28 16:26 Order name: Urine Sodium Random; Complete Time: 18:25 [facility] 10/28 15:02 Order name: XRAY Chest (1 view); Complete Time: 18:25 [facility] 10/28 15:02 Order name: CT Abd/Pelvis - PO and IV Contrast [facility] 10/28 18:13 Order name: CT; Complete Time: 18:25 [facility] 10/28 18:27 Order name: Urine Culture [facility] 10/28 18:39 Order name: SARS-COV-2 RT PCR; Complete Time: 20:38 [facility] 10/28 19:24 Order name: Basic Metabolic Panel; Complete Time: 20:38 [facility] 10/28 19:24 Order name: Thyroid Stimulating Hormone; Complete Time: 20:38 [facility] 10/28 20:16 Order name: Troponin I; Complete Time: 20:38 [facility] 10/28 15:02 Order name: EKG; Complete Time: 15:03 [facility] 10/28 15:02 Order name: Cardiac monitoring; Complete Time: 15:46 [facility] 10/28 15:02 Order name: EKG - Nurse/Tech; Complete Time: 15:46 [facility] 10/28 15:02 Order name: IV Saline Lock; Complete Time: 15:46 [facility] 10/28 15:02 Order name: Labs collected and sent; Complete Time: 15:46 [facility] 10/28 15:02 Order name: O2 Per Protocol; Complete Time: 15:46 [facility] 10/28 15:02 Order name: O2 Sat Monitoring; Complete Time: 15:46 [facility] 10/28 15:02 Order name: Urine Dipstick-Ancillary (obtain specimen); Complete Time: : [facility] 10/28 18:27 Order name: Bladder Scanner: pvr if greater than 100, place church; Complete Time: 19:21 karissa EC:02 Rate is 72 beats/min. Rhythm is regular. QRS Orange is Normal. [place] interval is normal. QRS karissa interval is normal. QT interval is normal. No Q waves. T waves are Normal. No ST changes noted. Clinical impression: Normal ECG and No evidence of ischemia. Interpreted by me. Administered Medications: 15:10 Drug: NS 0.9% 1000 ml Route: IV; Rate: 1 bolus; Site: left antecubital; 19:28 Follow up: Response: No adverse reaction; IV Status: Completed infusion 15:10 Drug: Zofran (Ondansetron) 4 mg Route: IVP; Site: left antecubital; 19:24 Follow up: Response: No adverse reaction 15:10 Drug: Dulcolax Suppository 10 mg Route: IL; 19:25 Follow up: Response: No adverse reaction 15:30 Drug: Lactulose 30 grams Volume: 45 ml; Route: PO; 19:24 Follow up: Response: No adverse reaction 16:45 Drug: Thiamine 100 mg Route: IV; Rate: bolus; Site: left antecubital; 18:37 Follow up: Response: No adverse reaction; IV Status: Completed infusion 19:24 Follow up: Response: No adverse reaction; IV Status: Completed infusion 19:27 Follow up: Response: No adverse reaction; IV Status: Completed infusion 16:45 Drug: NS 0.9% 1000 ml Route: IV; Rate: 125 ml/hr; Site: left antecubital; 19:27 Follow up: Response: No adverse reaction; IV Status: Infusion continued upon admission 19:00 Drug: Ativan 1 mg Route: IVP; Site: left antecubital; 19:27 Follow up: Response: No adverse reaction; Marked relief of symptoms; RASS: Alert and wh Calm (0) 19:00 Drug: Rocephin 1 grams Route: IV; Rate: per protocol; Site: left antecubital; 19:26 Follow up: Response: No adverse reaction; IV Status: Completed infusion 19:05 Drug: ProTONIX 40 mg Route: IVP; Site: left antecubital; 19:26 Follow up: Response: No adverse reaction 19:06 Drug: GI Cocktail without - (Maalox Suspension 30 ml, Lidocaine Liquid 2 % 15 ah ml) Route: PO; 19:27 Follow up: Response: No adverse reaction 19:07 Drug: foLIC Acid 1 mg Route: IVPB; Site: left antecubital; 19:26 Follow up: Response: No adverse reaction; IV Status: Completed infusion Disposition: 10/29/19 16:56 Hospitalization ordered by Pankaj Perez for Inpatient Admission. Preliminary diagnosis are Vomiting, Hypo-osmolality and hyponatremia, Tobacco abuse counseling, Constipation, Alcohol abuse, Essential (primary) hypertension. - Bed requested for Intensive Care Unit. - Status is Inpatient Admission. mw2 - Condition is Stable. - Problem is new. - Symptoms have improved. Signatures: Dispatcher [employer] EDBetzy Bustos RN RN dw Anderson, Corey, MD MD cha Baxter, Heather, RN RN Rocío Elise 2 Janelle Quiroz Amy RN TIKA Lashay Abdalla Corrections: (The following items were deleted from the chart) 17:13 16:56 Hospitalization Ordered by A Bre[facility] for Inpatient Admission. Preliminary diagnosis is Vomiting; Hypo-osmolality and hyponatremia; Tobacco abuse counseling; Constipation. Bed requested for Telemetry/MedSurg (Inpatient). Status is Inpatient Admission. Condition is Stable. Problem is new. Symptoms have improved. karissa 18:09 17:13 10/29/2019 16:56 Hospitalization Ordered by A Breanna [facility] for Inpatient Admission. karissa Preliminary diagnosis is Vomiting; Hypo-osmolality and hyponatremia; Tobacco abuse counseling; Constipation. Bed requested for Telemetry/MedSurg (Inpatient). Status is Inpatient Admission. Condition is Stable. Problem is new. Symptoms have improved. dw 18:54 18:09 10/29/2019 16:56 Hospitalization Ordered by A Breanna [facility] for Inpatient Admission. karissa Preliminary diagnosis is Vomiting; Hypo-osmolality and hyponatremia; Tobacco abuse counseling; Constipation; Alcohol abuse. Bed requested for Telemetry/MedSurg (Inpatient). Status is Inpatient Admission. Condition is Stable. Problem is new. Symptoms have improved. karissa 18:54 18:54 10/29/2019 16:56 Hospitalization Ordered by A Breanna [facility] for Inpatient Admission. karissa Preliminary diagnosis is Vomiting; Hypo-osmolality and hyponatremia; Tobacco abuse counseling; Constipation; Alcohol abuse. Bed requested for Intensive Care Unit. Status is Inpatient Admission. Condition is Stable. Problem is new. Symptoms have improved. karissa 19:00 18:54 10/29/2019 16:56 Hospitalization Ordered by A Breanna [facility] for Inpatient Admission. eb Preliminary diagnosis is Vomiting; Hypo-osmolality and hyponatremia; Tobacco abuse counseling; Constipation; Alcohol abuse; Essential (primary) hypertension. Bed requested for Intensive Care Unit. Status is Inpatient Admission. Condition is Stable. Problem is new. Symptoms have improved. karissa 19:26 19:00 10/29/2019 16:56 Hospitalization Ordered by A Breanna [facility] for Inpatient Admission. dw Preliminary diagnosis is Vomiting; Hypo-osmolality and hyponatremia; Tobacco abuse counseling; Constipation; Alcohol abuse; Essential (primary) hypertension. Bed requested for [facility] ER HOLD. Status is Inpatient Admission. Condition is Stable. Problem is new. Symptoms have improved. eb 19:26 19:26 10/29/2019 16:56 Hospitalization Ordered by A Breanna [facility] for Inpatient Admission. dw Preliminary diagnosis is Vomiting; Hypo-osmolality and hyponatremia; Tobacco abuse counseling; Constipation; Alcohol abuse; Essential (primary) hypertension. Bed requested for Intensive Care Unit. Status is Inpatient Admission. Condition is Stable. Problem is new. Symptoms have improved. dw 20:46 19:26 10/29/2019 16:56 Hospitalization Ordered by A Breanna [facility] for Inpatient Admission. mw2 Preliminary diagnosis is Vomiting; Hypo-osmolality and hyponatremia; Tobacco abuse counseling; Constipation; Alcohol abuse; Essential (primary) hypertension. Bed requested for Intensive Care Unit. Status is Inpatient Admission. Condition is Stable. Problem is new. Symptoms have improved. dw
--- NOTE | 2019-10-29 17:13 | RAD REPORT ---
EXAM DESCRIPTION: RAD - Chest Single View - 10/29/2019 4:11 pm CLINICAL HISTORY: ABDOMINAL DISTENTION Chest pain. COMPARISON: Chest Single View dated 10/02/2019; Chest Pa And Lat (2 Views) dated 02/01/2019; Abdomen 1 View (KUB) dated 01/06/2019; Chest Pa And Lat (2 Views) dated 01/06/2019 FINDINGS: Portable technique limits examination quality. The lungs are mildly emphysematous but grossly clear. The heart is normal in size. No displaced fract ures. IMPRESSION: Mild COPD.
--- NOTE | 2019-10-29 18:12 | RAD REPORT ---
EXAM DESCRIPTION: CTAbdomen Pelvis W Contrast - 10/29/2019 5:57 pm CLINICAL HISTORY: Abdominal pain. Abd pain;Constipation COMPARISON: Abdomen Pelvis W Contrast dated 09/14/2018; Chest Abdomen Pelvis W Cont dated 10/03/2019 TECHNIQUE: Biphasic CT imaging of the abdomen and pelvis was performed with 100 ml non-ionic IV cont rast. All CT scans are performed using dose optimization technique as appropriate and may include automated exposure control or mA/KV adjustment according to patient size. FINDINGS: The inferior lung banerjee are mildly emphysematous. Mild fatty liver is seen with subtle low-density lesions in the liver parenchyma probably cysts but t oo small to fully characterize. The spleen, pancreas adrenal glands and kidneys within normal limits. Small stone is noted in the inferior calyx of the left kidney measuring 2 mm. No bowel obstruction, free air, free fluid or abscess. Significant stool is present in the rectosigmo id colon. The appendix is not identified as a discrete structure, however, no secondary findings of a ppendicitis are identified. No evidence of significant lymphadenopathy. The urinary bladder is distended with a small air bubble present. Prostate gland is slightly prominen t. There is subtle irregularity along the mucosa of the urinary bladder left lateral aspect. IMPRESSION: Moderate rectosigmoid fecal retention. 2 mm calculus inferior left kidney without hydronephrosis. Bladder distention with mildly prominent prostate gland. Small air bubble is also present in the urin petros bladder which could indicate cystitis. Vague somewhat poorly visualized nodularity along lateral bladder cain on the left greater than righ t posteriorly. If clinically indicated, follow-up nonemergent cystoscopy direct visualization may be useful.
[2019-10-29] MEDS ORDERED: MAGNE/ALUM HYDROXD 30 ML UCUP ONE (18:59)
[2019-10-29] MEDS ORDERED: LORazepam 2 MG/ML VIAL ONE ×2 (19:00→23:35)
[2019-10-29] MEDS ORDERED: PANTOPRAZOLE 40 MG INJ ONE (19:00)
[2019-10-29] MEDS ORDERED: CEFTRIAXONE/SWI 1gm 1 GM/10 ML SYR ONE ×2 (19:01→19:04)
[2019-10-29] MEDS ORDERED: LIDOCAINE VISCOUS 2% SOLN 15 ML UDC ONE (19:05)
[2019-10-29] MEDS ORDERED: LORazepam 2 MG/ML VIAL IV PRN (19:15)
[2019-10-29] MEDS ORDERED: MORPHINE 4 MG/ML SYR IV PRN (19:15)
[2019-10-29] MEDS ORDERED: ONDANSETRON 4 MG/2 ML VIAL IV PRN (19:15)
[2019-10-29] MEDS ORDERED: ACETAMINOPHEN 325 MG TABLET PO PRN (19:15)
[2019-10-29] MEDS: NA CHLORIDE 0.9% 1,000 ML IV SCH (19:15)
[2019-10-29] MEDS ORDERED: FOLIC ACID 5 MG/ML VIAL ONE (19:18)
[2019-10-29 19:24] LABS: Potassium 4.4 mmol/L (3.5-5.1); Thyroid Stimulating Hormone 0.515 uIU/mL (0.360-3.740)
[2019-10-29] MEDS ORDERED: MAGNES/ALUMIN/SIMET 30ML UCUP PO PRN (20:42)
[2019-10-29] MEDS ORDERED: ENOXAPARIN 40 MG/0.4 ML SQ ONE ×2 (21:00→21:53)
[2019-10-29 21:29] VITALS: BMI 23.0
[2019-10-29] MEDS: FAMOTIDINE 20 MG/2 ML VIAL IV SCH (21:46)
[2019-10-29] MEDS ORDERED: FAMOTIDINE 20 MG/2 ML VIAL IV ONE (21:53)
[2019-10-30] MEDS: NA CHLORIDE 0.9% 1,000 ML IV SCH ×3 (01:51→06:54)
[2019-10-30] MEDS ORDERED: NA CHLORIDE 0.9% 1,000 ML ONE ×2 (02:01→13:54)
[2019-10-30 05:23] LABS: Absolute Lymphocytes (CBC) 1.3 K/uL (0.7-4.9); Basophils % 0.5 % (0-1.3); Hematocrit 36.8 % (39.6-49.0); Lymphocytes % 26.5 % (15.3-44.8); MPV 9.2 fL (7.6-11.3); RBC Red Blood Cell Count 3.61 M/uL (4.33-5.43)
[2019-10-30] MEDS ORDERED: SODIUM CHLORIDE 0.9% 10ML INJ IV ONE (08:00)
[2019-10-30] MEDS ORDERED: COSYNTROPIN 0.25 MG VIAL IV ONE (08:00)
[2019-10-30] MEDS ORDERED: NS 0.9% VIAL 10 ML ONE (08:15)
[2019-10-30] MEDS: NICOTINE 21 MG/PAT TD SCH (09:00)
[2019-10-30] MEDS: ASPIRIN EC 81 MG TAB PO SCH (09:00)
[2019-10-30] MEDS ORDERED: THIAMINE HCL 100 MG TABLET ONE (09:07)
[2019-10-30] MEDS ORDERED: NICOTINE 21 MG/PAT TD ONE (09:07)
[2019-10-30] MEDS ORDERED: FOLIC ACID 1 MG TABLET ONE (09:08)
[2019-10-30] MEDS ORDERED: ASPIRIN EC 81 MG TAB PO ONE (09:08)
[2019-10-30] MEDS: THIAMINE 200 MG/2 ML INJ IVP SCH (09:46)
[2019-10-30] MEDS: FAMOTIDINE 20 MG/2 ML VIAL IV SCH ×2 (09:46→20:35)
[2019-10-30] MEDS: FOLIC ACID 1 MG in NA CHLORIDE 0.9% 50 ML IV SCH (09:52)
[2019-10-30] MEDS ORDERED: FAMOTIDINE 20 MG/2 ML VIAL IV ONE (09:54)
[2019-10-30] MEDS ORDERED: THIAMINE 200 MG/2 ML INJ ONE (09:54)
[2019-10-30] MEDS ORDERED: FOLIC ACID 5 MG/ML VIAL ONE (09:56)
[2019-10-30] MEDS ORDERED: PNEUMOCOCCAL VACCINE 0.5 ML IMVAC ONE ×2 (10:00→17:34)
[2019-10-30] MEDS: AMLODIPINE 5 MG TAB PO SCH (10:02)
[2019-10-30] MEDS: METOPROLOL XL 25 MG TAB PO SCH (10:11)
[2019-10-30] MEDS ORDERED: AMLODIPINE 5 MG TAB ONE (10:12)
--- NOTE | 2019-10-30 10:34 | HP ---
Date of Admission: 10/29/2019 Chief Complaint: Nausea and feeling weak. History Of Present Illness: A 79-year-old male patient, who started to have lot of nausea problem as of Wednesday, that is about 3 days ago, and he was not able to eat or drink much because of this signif icant nausea. He also has acid reflux, indigestion type of problem along with that. Denies any vomi ting. No abdominal pain. No fever. No chills. He also felt extremely weak and with all these comp laints, he came into emergency room yesterday and his sodium level was very low at 119, and he was ad mitted to the hospital. Allergies: NO KNOWN ALLERGIES. Medications: List reviewed. Review of Systems: GI: As mentioned above. Constitutional: As mentioned above. All other systems reviewed and negative. Past Medical History: Significant for mixed hyperlipidemia, chronic hyponatremia, hypertension, COPD , thrombophlebitis of left upper extremity in June 2018, which was treated with 4 months of Xarelto. Past medical history also significant for diverticulosis, gastroesophageal reflux disease, high PSA, benign prostatic hypertrophy, osteoarthritis, renal cyst, fatty liver disease, and recent diagnosis o f bladder cancer. On 10/24/2019, Dr. Delaney did a cystoscopy and biopsy, and biopsy result showed pa pillary urothelial carcinoma, high grade (WHO grade 3). The patient was not aware of this diagnosis as he has not had a followup visit with Dr. Delaney after this procedure and I have informed him of th is diagnosis and I have also advised him that after discharge from the hospital, he needs to call Dr. Delaney's office and schedule a followup appointment to discuss treatment options. 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 Past Surgical History: Significant for inguinal hernia repair. Family History: Father had cirrhosis of liver due to alcohol use and mother comitted suicide. Social History: Positive for smoking, anywhere between half to 1 pack per day. Use of alcohol, the patient reports that within last few days he has reduced his alcohol intake and drinks approximately 4 ounces of wine and 4 ounces of hard liquor a day, but prior to that he was drinking a lot more. I did recommend the patient to quit smoking completely as well as gave my recommendation for the patien t to quit using alcohol completely. Physical Examination: Vital Signs: Temperature 96.9, pulse 57, respiratory rate 16, blood pressure 152/76, oxygen saturati on 96%. General: Awake, alert, oriented, not in distress. HEENT: Head atraumatic, normocephalic. Conjunctivae nonerythematous. Sclerae white. Mouth, no thr ush or edema noted. Ears/Nose, no mass, lesion, discharge noted. Neck: Supple. No JVD, lymph nodes, bruit, thyromegaly noted. Lungs: Bilateral good equal air entry. Clear to auscultation. No rhonchi. No rales. Heart: Normal heart sounds. No murmur or gallop. Abdomen: Soft. Bowel sounds normal. No guarding, rigidity, tenderness, mass, hepatosplenomegaly, d istention, or bruit noted. Extremities: No leg edema. No calf tenderness. Skin: No rash, ulcer, cellulitis. Lymphatics: No lymph node enlargement in neck, supraclavicular, infraclavicular region. Neuro: No focal neurological deficit. Chest: Unremarkable. External Genitalia: Deferred. Rectal: Deferred. Laboratory Data: Yesterday, white count 6.8, hemoglobin 14.2 platelets 210. This morning, white cou nt 4.9, hemoglobin 12.9, platelets 142. Yesterday, sodium 119, potassium 4.1, chloride 82, bicarb 24 , BUN 11, creatinine 1.21, glucose 86. Liver function tests unremarkable except total bilirubin 1.7 and SGOT 40. Troponin less than 0.02. Alkaline phosphatase 66. His BNP 296. Lipase 219. TSH 0.51 5. His serum osmolality 240 and urine osmolality 332. Random urine sodium 52. This morning, his tr iglyceride is 59, total cholesterol 171, HDL 102, and LDL 57. His serum sodium this morning is 129, potassium 4, chloride 96, bicarb 28, BUN 8, creatinine 0.98, glucose 74. It is important to note karyn t around 10 days ago, the patient had a sodium level of 133 or so. COVID-19 test came back negative. Chest x-ray, no acute cardiopulmonary changes. CAT scan of abdomen, evidence of constipation, 2 mm small left renal calculus without any evidence of obstruction or hydronephrosis, and evidence of sma ll liver cyst. Upon review of prior test results, finding of liver cyst is not a new finding. Impression: 1.Hyponatremia. 2.Anemia. 3.Thrombocytopenia. 4.Chronic obstructive pulmonary disease. 5.Bladder cancer. 6.Hypertension. 7.Mixed hyperlipidemia. 8.Gastroesophageal reflux disease. 9.Diverticulosis. 10.Thrombus, proximal superior mesenteric artery, old. Plan: Admit the patient to hospital for further evaluation and management of this problem. The james ent is appropriate for inpatient and is expected to spend 2 midnights in hospital. We will continue IV fluid, but reduce rate per order. The patient will have cortisol stimulation test, which will be done this morning. The patient was admitted to ICU and as of this morning, he does not need any more ICU care. So, we will transfer him to regular medical floor. Consult physical therapy to help ambu late the patient. Home medications will be continued per order. DVT prophylaxis will be given using Lovenox per order. We will repeat blood work tomorrow morning. Give IV Pepcid and thiamine per ord er. I had a long discussion with the patient regarding my recommendation to quit using alcohol compl etely and life-threatening complications due to hyponatremia explained to him and he tells me that he will try to cut back on his alcohol use, but he does not think that he can quit it completely. I barton ve advised him to follow up with Dr. Delaney for further management of bladder cancer, which is a new diagnosis for him and he was made aware of that diagnosis. EDA/MODL Voice ID: [id number]
[2019-10-30] MEDS ORDERED: ENOXAPARIN 40 MG/0.4 ML SQ SCH (17:00)
[2019-10-30] MEDS ORDERED: ENOXAPARIN 40 MG/0.4 ML SQ ONE (17:33)
[2019-10-31] MEDS: NA CHLORIDE 0.9% 1,000 ML IV SCH (02:00)
[2019-10-31 04:54] LABS: Magnesium 2.4 mg/dL (1.8-2.4); Potassium 3.3 mmol/L (3.5-5.1)
[2019-10-31] MEDS: THIAMINE 200 MG/2 ML INJ IVP SCH (09:26)
[2019-10-31] MEDS: ASPIRIN EC 81 MG TAB PO SCH (09:27)
[2019-10-31] MEDS: METOPROLOL XL 25 MG TAB PO SCH (09:28)
[2019-10-31] MEDS: NICOTINE 21 MG/PAT TD SCH (09:28)
[2019-10-31] MEDS: FAMOTIDINE 20 MG/2 ML VIAL IV SCH (09:28)
[2019-10-31] MEDS: AMLODIPINE 5 MG TAB PO SCH (09:28)
[2019-10-31] MEDS ORDERED: POTASSIUM CL SA 10 MEQ TAB PO ONE (09:56)
[2019-10-31] MEDS: FOLIC ACID 1 MG in NA CHLORIDE 0.9% 50 ML IV SCH (10:23)
[2019-10-31 12:24] VITALS: BP 132/70; TEMP 97.8
[2019-10-31 12:41] VITALS: O2SAT 99
--- NOTE | 2019-10-31 20:30 | DS ---
Date of Discharge: 10/31/2019 Subjective: The patient was seen this morning for followup. He was sitting at bedside. Denied any complaints. No nausea. No vomiting. No abdominal pain. His weakness problem has improved. He has a good appetite. Denies any complaints this morning. Objective: Vital Signs: Reviewed. HEENT: Unremarkable. Lungs: Clear to auscultation. Heart: Sounds normal. Abdomen: Soft. Bowel sounds normal. No guarding, rigidity, tenderness, distention. Extremities: No leg edema. Laboratory Data: Sodium level this morning 133, potassium 3.3, chloride 89, bicarb 26, BUN 8, creati nine 0.97, glucose 93. His cortisol stimulation test done yesterday, result came back negative. Bas leandro cortisol was 17, 30 minutes cortisol was 33.1, 60 minutes cortisol was 39.5, and 90 minute simran isol level was 44.5. His troponin was negative, less than 0.02. Initial sodium was 119, potassium 4 .1, chloride 82, bicarb 24, BUN 11, creatinine 1.21, glucose 86. Serum osmolality 248. TSH 0.515. Initial white count 6.8, hemoglobin 14.2, platelets 210. Yesterday, white count 4.9, hemoglobin 12.9 , platelets 142. Urine osmolality 332, urine sodium 52. COVID-19 test was negative. Hospital Course: This is a 79-year-old pleasant male patient, came into emergency room with complain ts of nausea and feeling weak. Please see dictated H and P for more information. After the patient was evaluated in the emergency room, he was admitted to the hospital with hyponatremia problem associ ated with the symptoms of nausea due to hyponatremia. After the patient was evaluated in ER, he was admitted to the hospital. Initially, he was admitted as ICU patient and after his sodium level impro rodrigo overnight, yesterday we admitted him to regular medical floor. With IV fluid normal saline, his sodium level continued to improve and this morning it was 133. His triglyceride is normal. TSH is n ormal. I strongly believe that his hyponatremia problem is due to excessive alcohol use and I had a long discussion with him yesterday and today, and he was advised not to drink any alcohol at all. He tells me that it is not going to be possible for him to quit completely, but he will try to cut down and I have informed him that he should not drink more than 2-3 ounce of red wine a day and that is t he maximum amount, and he should not have any other form of alcohol with that. Overall, his conditio n has improved and he had a Pennington catheter that was placed in emergency room is draining clear yellow urine. We will remove that Pennington catheter today. After he is able to void, our plan is to discharg e him to go home. He had cystoscopy done about a week prior to this hospital admission by Dr. Delaney and it did show evidence of bladder cancer. The patient believes that he has appointment later part of this month to follow up with him. I have encouraged him to call Dr. Delaney's office upon dischar lio from the hospital to schedule appointment to see him to discuss further treatment for this bladder cancer. His CAT scan of abdomen had shown no evidence of any acute findings, but it did show eviden ce of constipation and 2 mm small left renal calculus without any evidence of obstruction or hydronep hrosis, and evidence of small liver cyst. Upon review of prior test results, finding of liver cyst i s not a new finding. Overall, his condition now has remained stable. He does have lot of problem wi th heartburn, indigestion almost on a daily basis. We will go ahead and prescribe him famotidine to continue at home, which was given during this hospital stay. Final Diagnoses: 1.Hyponatremia. 2.Anemia. 3.Thrombocytopenia. 4.Gastroesophageal reflux disease. 5.Chronic obstructive pulmonary disease. 6.Bladder cancer. 7.Hypertension. 8.Mixed hyperlipidemia. 9.Diverticulosis. 10.Thrombus, proximal superior mesenteric artery, old. Discharge Medications And Instructions: 1.Continue all prior home medications. 2.Take famotidine 40 mg at bedtime. 3.The patient to have follow up at my office next week on Wednesday, which is 11/06/2019. EDA/MODL Voice ID: [id number] Report ID: [id number]
== END 2019-10-31 14:01 | disposition home or self-care (01) | DRG 641 ==
LOC: ER 14:11 → ERHOLD 16:59 → 2ND 18:44 → ERHOLD 19:34 → 2ND 10-30 18:21
PROVIDERS: ADMIT Internal Medicine; ATTEND Internal Medicine
DX: E87.1 Hypo-osmolality and hyponatremia (principal); K21.9 Gastro-esophageal reflux disease without esophagitis; I10 Essential (primary) hypertension; J44.9 Chronic obstructive pulmonary disease, unspecified; D69.6 Thrombocytopenia, unspecified; E78.2 Mixed hyperlipidemia; F17.200 Nicotine dependence, unspecified, uncomplicated; C67.9 Malignant neoplasm of bladder, unspecified; D64.9 Anemia, unspecified; K59.00 Constipation, unspecified; N20.0 Calculus of kidney; K76.89 Other specified diseases of liver; K57.90 Diverticulosis of intestine, part unspecified, without perforation or abscess without bleeding; Z20.828 Contact with and (suspected) exposure to other viral communicable diseases
CPT/HCPCS: 36415; 51702; 71045; 74177; 80048; 80061; 80076; 81003; 82024; 82533; 83690; 83735; 83880; 83930; 83935; 84300; 84443; 84484; 85025; 85610; 87086; 87088; 90471; 90670; 93005; 96361; 96365; 96367; 96368; 96375; 97116; 97161; 97530; 99285; C9113; J0696; J0834; J1650; J2405; J3411; J7030; Q9967; U0003

== ENCOUNTER 2020-01-16 07:56 | Day surgery (SDC) | payer BC ==
[2020-01-09 14:57] LABS: Absolute Lymphocytes (CBC) 1.1 K/uL (0.7-4.9); Basophils % 0.8 % (0-1.3); Hematocrit 42.9 % (39.6-49.0); MPV 10.7 fL (7.6-11.3); RBC Red Blood Cell Count 4.29 M/uL (4.33-5.43)
[2020-01-09 15:00] LABS: Protime INR 0.92
[2020-01-09 15:04] LABS: Potassium 4.3 mmol/L (3.5-5.1)
--- OUTSIDE RECORDS SUMMARY | 2020-01-16 08:14 | XMS REPORT | Continuity of Care Document ---
:1940 Author Organization [facility] t Address [address] [place] [address] Care Team Providers Name Role Phone Unavailable Unavailable Unavailable Problems This patient has no known problems. Allergies, Adverse Reactions, Alerts This patient has no known allergies or adverse reactions. Medications Ordered Filled Start Stop Current Ordering Indication Dosage Frequency Signature Comments Components Source Medication Medication Date Date Medication? Clinician (SIG) Name Name Melatonin Melatonin Yes Mackenzie [address] [facility] [place] [facility] [...] Tartrate Tartrate Frank[facility] with [facility] tylenol tylenol Yes Mackenzie [address] [facility] Amlodipine Amlodipine Yes Mackenzie [address] [facility] Bes[facility]ylate [place] [facility] Procedures This patient has no known procedures. Encounters Start End Encounter Admission Attending Care Care Encounter Source Date/Time Date/Time Type Type Clinicians Facility Department ID 2020-01-01 2020-01-01 Outpatient [facility] [id number] [facility] 2020-01-01 2020-01-01 Outpatient [facility] [id number] [facility] 2019-11-02 2019-11-02 [facility] [id number] [facility] 13:08:00 13:08:00 [facility] 2019-11-01 2019-11-01 [facility] [id number] [facility] 15:04:00 15:04:00 [facility] 2019 2019 [facility] [id number] [facility] 15:15:00 15:15:00 [facility] 2019-10-13 2019-10-13 [facility] [id number] [facility] 11:29:00 11:29:00 t [facility] 2019-10-10 2019-10-10 [facility] [id number] [facility] 16:12:00 16:12:00 [facility] 2019-10-09 2019-10-09 [facility] [id number] [facility] 12:54:00 12:54:00 [facility] 2019-10-02 2019-10-02 [facility] [id number] [facility] 15:00:00 15:00:00 [facility] 2019-10-02 2019-10-02 [facility] [id number] [facility] 13:33:00 13:33:00 t [facility] 2019-07-05 2019-07-05 [facility] [id number] [facility] 13:11:00 13:11:00 [facility] 2019-05-16 2019-05-16 [facility] [id number] [facility] 14:24:00 14:24:00 t [facility] 2019-04-17 2019-04-17 [facility] [id number] [facility] 11:33:00 11:33:00 t [facility] 2019-04-13 2019-04-13 [facility] [id number] [facility] 16:15:00 16:15:00 t [facility] 2019-04-04 2019-04-04 [facility] [id number] [facility] 15:00:00 15:00:00 t [facility] 2019-03-13 2019-03-13 [facility] [id number] [facility] 11:23:00 11:23:00 t [facility] 2019-03-10 2019-03-10 [facility] [id number] [facility] 10:43:00 10:43:00 t [facility] 2019-02-23 2019-02-23 [facility] [id number] [facility] 14:00:00 14:00:00 t [facility] Results This patient has no known results.
--- OUTSIDE RECORDS SUMMARY | 2020-01-16 08:14 | XMS REPORT ---
[...] Medications Results No Known Results Summary Purpose [employer] Submission
--- OUTSIDE RECORDS SUMMARY | 2020-01-16 08:14 | XMS REPORT ---
:1940 Author Organization [employer] Care Team Providers Name Role Phone Mackenzie David Provider Role Unavailable Allergies, Adverse Reactions, Alerts Substance Reaction Event Type N.K.D.A. Info Not Available Non Drug Allergy Problems Problem Type Condition Code Onset Dates Condition Statu s Assessment Bladder tumor D49.4 Active Problem BPH loc w/o ur obs/LUTS N40.0 Acti ve Problem BPH NOS w/o ur obs/LUTS N40.0 Acti ve Assessment BPH loc w/o ur obs/LUTS N40.0 Acti ve Assessment Incomplete bladder emptying R33.9 Active Assessment Gross hematuria R31.0 Active Assessment Urine retention R33.9 Active Medications Medication Code Code Instructions Start End Status Dosage System Date Date tylenol NDC 0 Oral Active 1 tab Melatonin ND 77169133904 5 MG Orally Active 1 tabl et in Once a day the evening Spiriva ND 71947761874 18 MCG Active 1 capsule by HandiHaler Inhalation Once inhal ing the a day contents of the capsule using the HandiHaler device Ranitidine 75 NDC 0 75 MG Orally Active 1 tab let as Twice a day needed Metoprolol ND 46946248780 25 MG Orally Active 1 ta blet with Tartrate Twice a day food Amlodipine ND 96024210982 5 MG Orally Active 1 tab let Besylate Once a day Results No Known Results Summary Purpose [employer] Submission
--- OUTSIDE RECORDS SUMMARY | 2020-01-16 08:14 | XMS REPORT ---
[...] Medications Results No Known Results Summary Purpose [employer] Submission
[2020-01-16] MEDS ORDERED: CEFAZOLIN/SWI 1gm 1 GM/10 ML SYR ONE (08:21)
[2020-01-16] MEDS ORDERED: Ringers Lactate 1,000 ML IV ONE (08:21)
[2020-01-16] MEDS ORDERED: FENTANYL CITR 100 MCG/2 ML ONE (10:49)
[2020-01-16] MEDS ORDERED: propofoL 200 MG/20 ML VIAL IV ONE (10:49)
[2020-01-16] MEDS ORDERED: LIDOCAINE 1% MPF 5 ML VIAL ONE (10:49)
[2020-01-16] MEDS ORDERED: EPHEDRINE SULF 50 MG/ML VIAL ONE (11:23)
[2020-01-16] MEDS ORDERED: NS 0.9% VIAL 10 ML ONE (11:23)
[2020-01-16] MEDS ORDERED: ONDANSETRON 4 MG/2 ML VIAL ONE (11:29)
[2020-01-16] MEDS ORDERED: KETOROLAC 30 MG/ML INJ ONE (11:36)
--- NOTE | 2020-01-16 12:56 | OP ---
Surgeon: STEVEN DOVER Preoperative Diagnoses: 1.Right posterior wall erythematous bladder lesion. 2.History of Ta high-grade urothelial carcinoma. Postoperative Diagnoses: 1.Right posterior wall erythematous bladder lesion. 2.History of Ta high-grade urothelial carcinoma. Principle Procedures: Cystoscopy and bladder biopsies x4 with fulguration. Indication For Procedure: Mr. Manzanares underwent prior cystoscopy and resection of a bladder tumor with Dr. Melara revealed to be pathologic stage Ta high-grade urothelial carcinoma. He presented to mo in followup where he underwent repeat cystoscopy of the bladder and an erythematous patch of bladder wa ll mucosa in the right posterior wall of the bladder was identified approximately 2 cm in transverse length by 1 cm in anterior-posterior length. He was thus recommended for repeat bladder biopsy and r estaging CT urography was also requested and completed. No upper tract lesions were identified, so ashu jerome presents today in followup for the biopsy of his bladder. Procedure In Detail: The patient was consented in the preoperative holding area before being transfe rred to the operative suite where general anesthesia was induced. He was given Ancef IV antimicrobia l prophylaxis and pneumo boots were provided for DVT prophylaxis. He was placed supine on the operat andrea table and then in the lithotomy position, padded and secured to the table appropriately. The lewis e was begun using a 22-Palestinian rigid cystoscope to traverse the urethra and into the bladder with ease . There was evidence of a prior TUR defect and the prostatic urethra was nicely patent. The bladder was surveyed in its entirety. While it was mild-moderately trabeculated, there were no stones or fo reign bodies noted throughout. Within the right posterior wall of the bladder as had been previously noted in the office, there was the erythematous patch of irregular mucosa suspicious for CIS. Thus, using sterile water, I used a cold cup biopsy forceps to sample the entirety of the region in 4 diff erent spots. These samples were sent for pathologic analysis. I then carefully fulgurated each of t he spots and the entirety of the patch using a Bugbee electrode at a cautery setting of 30. The blad ciro was then decompressed of urine, fluid and blood products and irrigated free of any blood clots. The bladder was then emptied, and the patient was then taken out of the lithotomy position before david ng awakened from general anesthesia. He was then transferred to a stretcher and then to the recovery room in good condition. Complications: None. Discharge Disposition: I will ask him to follow up in the Urology Clinic within the next 2 weeks for discussion of the pathology. Unfortunately, we were unable to provide him intravesical chemotherapy today and we will plan on intravesical immunotherapy with BCG on followup given his prior history of high-grade urothelial carcinoma and therefore high risk status for recurrence. JAYSON/VALARIE Voice ID: [id number] Report ID: [id number]
[2020-01-16 14:25] VITALS: TEMP 97.8
[2020-01-16 14:27] VITALS: O2SAT 98
[2020-01-16 16:10] VITALS: BP 126/54
== END 2020-01-16 15:52 | disposition home or self-care (01) ==
LOC: OR 07:56
PROVIDERS: ATTEND Urology
PROC: 0TBB8ZX Excision of Bladder, Via Natural or Artificial Opening Endoscopic, Diagnostic (ICD-10-PCS; principal; 2020-01-16 09:15)
DX: D09.19 Carcinoma in situ of other urinary organs (principal); F17.210 Nicotine dependence, cigarettes, uncomplicated; R06.83 Snoring; I10 Essential (primary) hypertension; Z20.828 Contact with and (suspected) exposure to other viral communicable diseases; J44.9 Chronic obstructive pulmonary disease, unspecified; K21.9 Gastro-esophageal reflux disease without esophagitis
CPT/HCPCS: 36415; 80048; 85025; 85610; 85730; 87086; 87088; 88305; 88307; J0690; J2405; J2704; J3010; J7120; U0002

== ENCOUNTER 2020-04-23 10:55 | Day surgery (SDC) | payer OTHER ==
[2020-04-19 11:37] LABS: Absolute Lymphocytes (CBC) 1.1 K/uL (0.7-4.9); Basophils % 0.7 % (0-1.3); Hematocrit 40.6 % (39.6-49.0); Lymphocytes % 21.7 % (15.3-44.8); MPV 9.1 fL (7.6-11.3)
[2020-04-19 11:47] LABS: Protime INR 0.97
[2020-04-19 11:58] LABS: Potassium 4.3 mmol/L (3.5-5.1)
[2020-04-23] MEDS ORDERED: Ringers Lactate 1,000 ML IV ONE (11:57)
[2020-04-23] MEDS: CEFAZOLIN/SWI 1gm 1 GM/10 ML SYR ONE ×2 (12:49→14:36)
[2020-04-23] MEDS ORDERED: FENTANYL CITR 100 MCG/2 ML ONE ×2 (12:55→14:06)
[2020-04-23] MEDS ORDERED: propofoL 200 MG/20 ML VIAL IV ONE (14:06)
[2020-04-23] MEDS ORDERED: LIDOCAINE 1% MPF 5 ML VIAL ONE (14:06)
[2020-04-23] MEDS ORDERED: ONDANSETRON 4 MG/2 ML VIAL ONE (15:33)
[2020-04-23] MEDS ORDERED: KETOROLAC 30 MG/ML INJ ONE (15:33)
[2020-04-23] MEDS ORDERED: PHENAZOPYRIDINE 100MG TAB PO ONE ×2 (15:57→16:56)
[2020-04-23 16:28] VITALS: BP 174/87; TEMP 97.2; O2SAT 98
--- NOTE | 2020-04-23 21:53 | OP ---
Surgeon: STEVEN DOVER Preoperative Diagnoses: 1. History of high-grade Ta urothelial carcinoma. 2. Carcinoma in situ. 3. Status post induction of gemcitabine chemotherapy. Postoperative Diagnoses: 1. History of high-grade Ta urothelial carcinoma. 2. Carcinoma in situ. 3. Status post induction of gemcitabine chemotherapy. 4. Suspicious patch in the posterior wall of the bladder. Principle Procedures: 1. Cystoscopy using white light and narrow band imaging. 2. Bladder biopsies. Findings: 1. In the posterior wall of the bladder, there was an approximately 2 cm patch of hypervascular irregular-appearing mucosa that was markedly irregular with narrow band imaging. 2. Within the left lateral wall, there was a subtle patch of mildly irregular mucosa. Indication For Procedure: Mr. Manzanares is a 79-year-old gentleman with hypertension, COPD, and GERD, who presents status post GreenLight PVP on 2 different occasions, last in 2014, with gross hematuria and a bladder tumor revealed to be high-grade Ta urothelial carcinoma on 10/24/2019 consistent with high-risk bladder cancer who underwent biopsy of a right posterior bladder wall 2-3 cm erythematous patch on 01/16/2020 with pathology revealing carcinoma in situ. He underwent intravesical gemcitabine chemotherapy completed on 04/09/2020 and presents today for followup cystoscopy and bladder biopsies. Procedure In Detail: The patient was consented in the preoperative holding area before being transferred to the operative suite where general anesthesia using an LMA was induced. He was given Ancef 1 g IV antimicrobial prophylaxis and pneumo boots were provided for DVT prophylaxis. He was placed in the lithotomy position, padded and secured to the table appropriately. His genitalia were prepped using Hibiclens and he was draped in standard fashion. The case was begun using a 22-Tajik rigid cystoscope to traverse the urethra and into the bladder with ease. The evidence of the prior TUR defect was notable posteriorly. There was some mild anterior overhang. The bladder was then entered and was surveyed in its entirety. It was markedly trabeculated and the ureteral orifices were somewhat laterally displaced but visible. The posterior wall of the bladder had an area that was somewhat hypervascular in appearance to white-light cystoscopy. Within the left lateral wall, there was a subtle patch of mucosa that was slightly irregular. I then employed narrow band imaging and noted the areas that were suspicious by white light were now markedly suspicious using narrow band imaging, particularly the area in the posterior wall of the bladder. The area in the left lateral wall was only mildly suspicious appearing. The remainder of the bladder was surveyed using both a 30- and a 70- degree lens with no additional suspicious areas of mucosa noted. As a result, I then used cold cup biopsy forceps to sample the left lateral wall posterior lesion first and that was sent for pathologic analysis. I then took 3 different biopsies of the highly suspicious area in the posterior wall of the bladder. I then took random samples from the right lateral wall, the trigone and the dome. Each of these was sent for pathologic analysis as random samples. I then fulgurated each of the areas using the Bugbee electrode at a cautery setting of 30. The entirety of the procedure was done using sterile water. In the end, the bladder was decompressed and there was no bleeding from any of the biopsy sites. As a result, I placed an 18-Tajik Pennington catheter into his bladder after removing the cystoscope. The returning fluid was crystal clear. The catheter was then placed to gravity drainage using a bag and he was taken out of the lithotomy position. He was then awakened from general anesthesia, transferred to a stretcher, and then transferred to the recovery room in good condition. Complications: None. Discharge Disposition: The catheter will be left in place for today, and we will arrange for him to either remove the catheter himself at home tomorrow or come by the office for catheter removal and voiding trial. Subsequently, he should be established with followup with me in the office in approximately 1-2 weeks to discuss the pathologic results of the biopsy and plan subsequent followup. JAYSON/VALARIE Voice ID: [id number] Report ID: [id number]
== END 2020-04-23 17:35 | disposition home or self-care (01) ==
LOC: OR 10:55
PROVIDERS: ATTEND Urology
PROC: 0TBB8ZX Excision of Bladder, Via Natural or Artificial Opening Endoscopic, Diagnostic (ICD-10-PCS; principal; 2020-04-23 14:30)
DX: D09.0 Carcinoma in situ of bladder (principal); T45.1X5A Adverse effect of antineoplastic and immunosuppressive drugs, initial encounter; I10 Essential (primary) hypertension; J44.9 Chronic obstructive pulmonary disease, unspecified; K21.9 Gastro-esophageal reflux disease without esophagitis; Z20.822 Contact with and (suspected) exposure to COVID-19
CPT/HCPCS: 93005; 85025; 87086; 80048; 36415 ×2; 85610; 84295; 88305; 52204; U0002; J2704; J3010; J0690; J7120; J2405; 87088

== ENCOUNTER 2020-07-09 09:02 | Day surgery (SDC) | payer OTHER ==
[2020-07-09] MEDS ORDERED: GEMCITABINE HCL 26.3 ML IVPB ONE (09:30)
[2020-07-09] MEDS ORDERED: OPIUM/BELLADONNA SUPPOS (30-16.2 MG) PR ONE ×2 (09:34→09:47)
[2020-07-09] MEDS ORDERED: LIDOCAINE JELLY 2% 5 ML SYRINGE TOP ONE (09:34)
[2020-07-09 09:43] LABS: Urine Appearance CLEAR (Clear); Urine Bilirubin NEGATIVE (Negative); Urine Blood NEGATIVE (Negative); Urine Color YELLOW (Yellow); Urine Glucose NEGATIVE (Negative); Urine Protein NEGATIVE (Negative); Urine Specific Gravity <=1.005 (1.005-1.030)
[2020-07-09 09:50] VITALS: BP 158/81; TEMP 97.6; O2SAT 100; BMI 23.6
[2020-07-09 09:55] LABS: Urine Microscopic Reflex NO UMIC
--- NOTE | 2020-07-10 01:34 | OP ---
Surgeon: STEVEN DOVER Reason For Procedure: Carcinoma in situ of the bladder. 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 This was consistent with high-risk bladder cancer. He had a right posterior mildly erythematous patch suspicious for CIS observed cystoscopically. CT urography on 01/08/2020 revealed no upper tract filling defect. 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 As a result, he received intravesical gemcitabine 2 g in 50 cc normal saline. Induction course completed on 04/09/2020 and subsequently had a restaging bladder biopsy on 04/23/2020. This revealed only chronic inflammation with reactive urothelial changes, but no evidence of dysplasia or malignancy. Given a successful response to the induction of intravesical gemcitabine chemotherapy, I recommended maintenance therapy to be provided once a month for 1 year. This should be completed by 03/05/2021. Procedures Performed: 1. Insertion of urethral Pennington catheter. 2. Instillation of intravesical gemcitabine 2 g in 50 cc normal saline. Date of Procedure: 07/09/2020 Procedure In Detail: The patient was consented prior to being placed supine on the procedure table. His genitals were prepped using Betadine and lidocaine Uro-Jet was instilled intraurethrally for local anesthesia. He was then draped in standard fashion and a 16-Yi Pennington catheter was placed into his bladder with ease. His bladder was decompressed of several 100 cc of clear yellow urine, and a pre-procedure urinalysis was unremarkable. He was also asymptomatic at the time of any infection. As a result, once the bladder was decompressed, I slowly instilled 2 g of gemcitabine in 50 cc normal saline into his bladder, which he tolerated well. He had previously been given a belladonna and opiate suppository for local anesthesia. The catheter was clamped and connected to a leg bag for ease of subsequent evacuation, and the patient was left to rotate by 1/4 turn every 15 minute for the next 1-2 hours per protocol. In the end, the fluid was evacuated from his bladder and the catheter removed, and he was discharged from the procedure area in good condition. Complications: None noted. Discharge Disposition: He will follow up in 1 month for his next intravesical gemcitabine instillation toward the end of July or the very first week of August. Subsequent follow up for outpatient clinic cystoscopy should be scheduled around July 24. JAYSON/VALARIE Voice ID: [id number] Report ID: [id number] MTDD
== END 2020-07-09 13:15 | disposition home or self-care (01) ==
LOC: DS 09:02
PROVIDERS: ATTEND Urology
PROC: 3E0K705 Introduction of Other Antineoplastic into Genitourinary Tract, Via Natural or Artificial Opening (ICD-10-PCS; principal; 2020-07-09)
DX: D09.0 Carcinoma in situ of bladder (principal); J44.9 Chronic obstructive pulmonary disease, unspecified; I10 Essential (primary) hypertension; K21.9 Gastro-esophageal reflux disease without esophagitis
CPT/HCPCS: 81003; 96365; 51720; J9201

== ENCOUNTER 2020-08-21 10:51 | Day surgery (SDC) | payer OTHER ==
[~2020-08-21 10:51] MED LIST: OPIUM/BELLADONNA SUPPOS (30-16.2 MG) PR SCH
[2020-08-21] MEDS ORDERED: GEMCITABINE HCL 26.3 ML IVPB ONE (11:00)
[2020-08-21] MEDS ORDERED: LIDOCAINE JELLY 2% 5 ML SYRINGE TOP ONE (11:28)
[2020-08-21] MEDS ORDERED: OPIUM/BELLADONNA SUPPOS (30-16.2 MG) PR ONE (11:28)
[2020-08-21 11:35] LABS: Urine Appearance CLEAR (Clear); Urine Bilirubin NEGATIVE (Negative); Urine Blood NEGATIVE (Negative); Urine Color YELLOW (Yellow); Urine Glucose NEGATIVE (Negative); Urine Protein NEGATIVE (Negative); Urine pH 6.5 (5.0-7.0)
[2020-08-21 11:40] VITALS: BP 145/83; TEMP 98.4; O2SAT 100
[2020-08-21 11:41] VITALS: BMI 23.7
[2020-08-21 11:42] LABS: Urine Microscopic Reflex NO UMIC
--- NOTE | 2020-08-21 14:49 | OP ---
Date of Procedure: 08/21/2020 Surgeon: STEVEN DOVER Preoperative Diagnosis: Carcinoma in situ of the bladder. Indication For Procedure: Mr. Manzanares is a 79-year-old gentleman with hypertension, COPD, and GERD, wh o underwent GreenLight PVP of the prostate on 2 different occasions, last in 2014, with gross hematur ia and a bladder tumor revealed to be high-grade noninvasive urothelial carcinoma observed on 020. As this was consistent with high risk bladder cancer and he had a right posterior, mildly eryth ematous patch observed cystoscopically suspicious for CIS, he underwent a bladder biopsy on 0 that revealed carcinoma in situ. CT urography on 01/08/2020 revealed no upper tract filling defect s. As a result, he received intravesical gemcitabine 2 g in 50 cc normal saline induction course com pleted on 04/09/2020, and restaging bladder biopsies were completed on 04/23/2020. Only chronic infl ammation with reactive urothelial changes in the absence of dysplasia or malignancy was noted. As a result, given the successful response to the intravesical induction gemcitabine course, I recommended maintenance therapy to be provided once a month for 1 year. This should be completed by 03/05/2021. Procedures Performed: 1.Insertion of urethral Pennington catheter and evacuation of the bladder. 2.Installation of intravesical gemcitabine 2 g in 50 cc normal saline. Procedure In Detail: The patient was consented prior to being placed supine on the procedure table. His genitalia were prepped using Betadine and lidocaine. Uro-Jet was instilled intraurethrally for local anesthesia. Of note, there was a subtle degree of meatal stenosis that was easily dilated usin g the tip of the Uro-Jet catheter. His bladder was then allowed to evacuate and there was clear yell ow urine. Of note, pre-procedure urinalysis was completely negative. After decompressing his bladde r using the 16-Maldivian urethral Pennington catheter, I then draped his genitalia using blue towels and tied a towel around the catheter at the level of the glans. I then covered him in its entirety with a 3/ 4 sheet with a hole made in the center for the catheter to emanate through. He also placed a face sh ield over his head. I then instilled the gemcitabine 2 g in 50 cc normal saline via the catheter int o his bladder, which he tolerated well. The catheter was clamped and connected to a leg bag. He was then allowed to rotate by 1/4 turn every 15 minutes for the next 1-2 hours per protocol. At the end of that time, the fluid would be evacuated from his bladder by nursing and the catheter may be remov ed and discarded. Complications: None noted. Discharge Disposition: He will follow up for outpatient cystoscopy within the next few weeks. Subse quent maintenance chemotherapy intravesical will be performed monthly until March 05, 2021 as previ ously planned. JAYSON/VALARIE Voice ID: [id number] Report ID: [id number]
== END 2020-08-21 14:00 | disposition home or self-care (01) ==
LOC: DS 10:51
PROVIDERS: ATTEND Urology
PROC: 3E0K705 Introduction of Other Antineoplastic into Genitourinary Tract, Via Natural or Artificial Opening (ICD-10-PCS; principal; 2020-08-21)
DX: C67.9 Malignant neoplasm of bladder, unspecified (principal); N40.0 Benign prostatic hyperplasia without lower urinary tract symptoms; D09.0 Carcinoma in situ of bladder; I10 Essential (primary) hypertension; J44.9 Chronic obstructive pulmonary disease, unspecified; K21.9 Gastro-esophageal reflux disease without esophagitis
CPT/HCPCS: 51720; 81003; 96365; J9201

== ENCOUNTER 2020-09-24 10:33 | Day surgery (SDC) | payer OTHER ==
[2020-09-24] MEDS ORDERED: OPIUM/BELLADONNA SUPPOS (30-16.2 MG) PR ONE (11:14)
[2020-09-24] MEDS ORDERED: GEMCITABINE HCL 26.3 ML IVPB ONE (11:15)
[2020-09-24 11:38] LABS: Urine Appearance CLEAR (Clear); Urine Bilirubin NEGATIVE (Negative); Urine Blood NEGATIVE (Negative); Urine Color YELLOW (Yellow); Urine Glucose NEGATIVE (Negative); Urine Protein NEGATIVE (Negative); Urine Specific Gravity <=1.005 (1.005-1.030)
[2020-09-24 11:40] LABS: Urine Microscopic Reflex NO UMIC
[2020-09-24] MEDS ORDERED: LIDOCAINE JELLY 2% 5 ML SYRINGE TOP ONE (13:06)
[2020-09-24 14:56] VITALS: BP 136/82; TEMP 98.1; O2SAT 100
[2020-09-24 14:59] VITALS: BMI 23.6
== END 2020-09-24 14:20 | disposition home or self-care (01) ==
LOC: DS 10:33
PROVIDERS: ATTEND Urology
DX: C67.9 Malignant neoplasm of bladder, unspecified (principal); N40.0 Benign prostatic hyperplasia without lower urinary tract symptoms; D09.0 Carcinoma in situ of bladder
CPT/HCPCS: 81003; 96365; J9201

== ENCOUNTER 2020-10-22 10:04 | Day surgery (SDC) | payer OTHER ==
[2020-10-22] MEDS ORDERED: GEMCITABINE HCL 26.3 ML IVPB ONE (11:00)
[2020-10-22 11:06] LABS: Urine Appearance CLEAR (Clear); Urine Bilirubin NEGATIVE (Negative); Urine Blood NEGATIVE (Negative); Urine Color YELLOW (Yellow); Urine Glucose NEGATIVE (Negative); Urine Protein NEGATIVE (Negative); Urine Specific Gravity <=1.005 (1.005-1.030)
[2020-10-22] MEDS ORDERED: OPIUM/BELLADONNA SUPPOS (30-16.2 MG) PR ONE (11:14)
[2020-10-22] MEDS ORDERED: LIDOCAINE JELLY 2% 5 ML SYRINGE TOP ONE (11:15)
[2020-10-22 11:18] LABS: Urine Microscopic Reflex NO UMIC
[2020-10-22 15:24] VITALS: BP 149/76; TEMP 97.7; O2SAT 98; BMI 23.6
--- NOTE | 2020-10-22 19:22 | OP ---
Surgeon: STEVEN DOVER Preprocedure Diagnosis: Carcinoma in situ of the bladder. Indication For Procedure: Mr. 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 He has been treated with an induction course of intrav esical gemcitabine given the shortage of BCG present at the time of his start, and he continues with monthly maintenance gemcitabine as recommended. Procedure In Detail: The patient was consented prior to being placed supine on the stretcher. His g enitalia were prepped using Betadine and draped in standard fashion. A lidocaine Uro-Jet was applied intraurethrally for local anesthesia. A 16-Yoruba urethral Pennington catheter was then passed into his bladder with ease, and there was return of clear yellow urine. Once his bladder was completely decom pressed, the catheter was from the floor bag and he was draped to cover his skin entirely. He was wearing a face shield for splash protection. I then instilled 2 g of gemcitabine in 50 mL no rmal saline into his bladder with ease before clamping the catheter and attaching a leg bag. He was then allowed to rotate by 1/4 turn every 15 minutes over the course of the next hour targeting about 60-90 minutes of total instillation time. He tolerated the procedure well without complications, and the chemotherapy was drained from his bladder. The Pennington catheter was then removed and discarded in the chemotherapeutic waste. The patient was then discharged home in good condition without the cath eter. Complications: None. Discharge Disposition: He will continue the monthly intravesical gemcitabine instillations, though h e does express that he may be interested in stopping the instillations a bit early if his next cystos copic evaluation is unremarkable for recurrence. Since his last cystoscopic evaluation was September, he is next due around December 25, 2020. If at that time there was no evidence of recurrence , he may choose to discontinue further monthly instillations. In the meantime, he will continue once a month intravesical gemcitabine. Cystoscopy in December. WR/MODL Voice ID: [id number] Report ID: [id number]
== END 2020-10-22 13:07 | disposition home or self-care (01) ==
LOC: DS 10:04
PROVIDERS: ATTEND Urology
DX: C67.9 Malignant neoplasm of bladder, unspecified (principal); N40.0 Benign prostatic hyperplasia without lower urinary tract symptoms; D09.0 Carcinoma in situ of bladder
CPT/HCPCS: 81003; 96365; J9201

== ENCOUNTER 2022-07-09 12:51 | Emergency (ER) | payer OTHER ==
--- OUTSIDE RECORDS SUMMARY | 2022-07-09 13:10 | XMS REPORT | Continuity of Care Document ---
:1940 Author Organization [facility] t Address [address] [place] [address] [place] [id number] Care Team Providers Name Role Phone Reginaldo Carlos Attending Clinician Unavailable Payers Payer Name Policy Type Policy Number Effective Date Expiration Date Aarti WILLIAMSON MEDICARE 53 [id number] 2020 Common S pirit HMO 00:00:00 [facility] MEDICARE [id number] 2007 [facility] NOVITAS 00:00:00 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 bladder) [facility] [id number] BPH loc Problem Commo n w/o ur Spirit obs/LUTS - [facility] [place] [facility] [id number] Adverse Problem Commo n effect of Spirit chemothera - [facility] py, [facility] Malignant Malignant Problem Com mon tumor of neoplasm Spirit urinary involving - [facility] bladder prostate St by direct [facility] extension Medical from [place] urinary bladder [id number] Dysuria Problem Common Spirit [facility] [id number] Urothelial Problem Co mmon carcinoma Spirit with high - [facility] risk of [facility] [id number] Urothelial Problem Co mmon carcinoma Spirit of bladder - [facility] [id number] BPH loc w Problem Com mon urin Spirit obs/LUTS - [facility] [place] [facility] Allergies, Adverse Reactions, Alerts This patient has no known allergies or adverse reactions. Social History Social Habit Start Date Stop Date Quantity Comments Source History of Tobacco Current Smoker Co mmon Spirit - [facility] Use [facility] Sex Assigned At Com mon Spirit - [facility] Smoking Status Start Date Stop Date Source Current Smoker 2021-11-27 00:00:[address] [facility] Medications Ordered Filled Start Stop Current Ordering Indication Dosage Frequency Signature Comments Components Source Medication Medication Date Date Medication? Clinician (SIG) Name Name Metoprolol Metoprolol No 1{table BID Metoprolol Tartrate 25 Tartrate 25 t_with_ Tartrate MG MG food} 25 MG Ranitidine Ranitidine No 1{table BID Ranitidine 75 75 MG 75 75 MG t_as_ne 75 75 MG eded} Spiriva Spiriva No QD Spiriva HandiHaler HandiHaler HandiHaler 18 MCG 18 MCG 18 MCG Melatonin 5 Melatonin 5 No 1{table QD Melatonin MG MG t_in_th 5 MG e_eveni ng} amLODIPine amLODIPine No 1{table QD amLODIPine Besylate 5 Besylate 5 t} Besylate 5 MG MG MG tylenol tylenol No tylenol Metoprolol Metoprolol No 1{table BID Metoprolol Tartrate 25 Tartrate 25 t_with_ Tartrate MG MG food} 25 MG Ranitidine Ranitidine No 1{table BID Ranitidine 75 75 MG 75 75 MG t_as_ne 75 75 MG eded} Spiriva Spiriva No QD Spiriva HandiHaler HandiHaler HandiHaler 18 MCG 18 MCG 18 MCG Spiriva Spiriva No QD Spiriva HandiHaler HandiHaler HandiHaler 18 MCG 18 MCG 18 MCG Melatonin 5 Melatonin 5 No 1{table QD Melatonin MG MG t_in_th 5 MG e_eveni ng} Ranitidine Ranitidine No 1{table BID Ranitidine 75 75 MG 75 75 MG t_as_ne 75 75 MG eded} tylenol tylenol No tylenol Metoprolol Metoprolol No 1{table BID Metoprolol Tartrate 25 Tartrate 25 t_with_ Tartrate MG MG food} 25 MG amLODIPine amLODIPine No 1{table QD amLODIPine Besylate 5 Besylate 5 t} Besylate 5 MG MG MG amLODIPine amLODIPine No 1{table QD amLODIPine Besylate 5 Besylate 5 t} Besylate 5 MG MG MG Spiriva Spiriva No QD Spiriva HandiHaler HandiHaler HandiHaler 18 MCG 18 MCG 18 MCG Metoprolol Metoprolol No 1{table BID Metoprolol Tartrate 25 Tartrate 25 t_with_ Tartrate MG MG food} 25 MG Ranitidine Ranitidine No 1{table BID Ranitidine 75 75 MG 75 75 MG t_as_ne 75 75 MG eded} tylenol tylenol No tylenol Melatonin 5 Melatonin 5 No 1{table QD Melatonin MG MG t_in_th 5 MG e_eveni ng} Metoprolol Metoprolol No 1{table BID Metoprolol Tartrate 25 Tartrate 25 t_with_ Tartrate MG MG food} 25 MG Spiriva Spiriva No QD Spiriva HandiHaler HandiHaler HandiHaler 18 MCG 18 MCG 18 MCG Melatonin 5 Melatonin 5 No 1{table QD Melatonin MG MG t_in_th 5 MG e_eveni ng} amLODIPine amLODIPine No 1{table QD amLODIPine Besylate 5 Besylate 5 t} Besylate 5 MG MG MG Melatonin Melatonin Yes Mackenzie 1 tablet Common [place] in the [facility] evening [facility] Ranitidine Ranitidine Yes Mackenzie 1 tablet Common [address] [place] [address] [facility] Spiriva Spiriva Yes Mackenzie 1 capsule Com mon HandiHaler HandiHaler [place] by Spirit inhaling - [facility] the [facility] the Medical [facility] using the HandiHaler device Metoprolol Metoprolol Yes Mackenzie 1 tablet Common Tartrate Tartrate [place] with food [facility] tylenol tylenol Yes Mackenzie [address] [place] [facility] Amlodipine Amlodipine Yes Mackenzie 1 tablet Common Besylate Besylate [place] Spi rit [facility] Melatonin 5 Melatonin 5 No 1{table QD Melatonin MG MG t_in_th 5 MG e_eveni ng} amLODIPine amLODIPine No 1{table QD amLODIPine Besylate 5 Besylate 5 t} Besylate 5 MG MG MG tylenol tylenol No tylenol Vital Signs Vital Name Observation Time Observation Value Comments Source height 2021-11-27 13:30:00 65.5 [in_i] Common S pirit [facility] weight 2021-11-27 13:30:00 140 [lb_av] Common S pirit [facility] temperature 2021-11-27 13:30:00 98 [degF] Common S pirit [facility] bmi 2021-11-27 13:30:00 22.94 kg/m2 Common S pirit [facility] oximetry 2021-11-27 13:30:00 99 % Common S pirit [facility] blood pressure 2021-11-27 13:30:00 168 mm[Hg] Common Spirit - systolic [facility] blood pressure 2021-11-27 13:30:00 72 mm[Hg] Common Spirit - diastolic [facility] height 2021-10-29 14:00:00 65.5 [in_i] [facility] weight 2021-10-29 14:00:00 143 [lb_av] Common S pirit [facility] temperature 2021-10-29 14:00:00 98.6 [degF] [facility] 2021-10-29 14:00:00 23.43 kg/m2 [facility] oximetry 2021-10-29 14:00:00 96 % [facility] respiratory rate 2021-10-29 14:00:00 18 /min Comm on Spirit - [facility] blood pressure 2021-10-29 14:00:00 139 mm[Hg] Common Spirit - systolic [facility] blood pressure 2021-10-29 14:00:00 63 mm[Hg] Common Spirit - diastolic [facility] height 2020-11-28 11:30:00 65.5 [in_i] [facility] weight 2020-11-28 11:30:00 143 [lb_av] [facility] temperature 2020-11-28 11:30:00 97.2 [degF] Common S pirit - [facility] bmi 2020-11-28 11:30:00 23.43 kg/m2 Common [facility] oximetry 2020-11-28 11:30:00 96 % Common [facility] blood pressure 2020-11-28 11:30:00 104 mm[Hg] Common [facility] - systolic [facility] blood pressure 2020-11-28 11:30:00 51 mm[Hg] Common [facility] - diastolic [facility] Procedures This patient has no known procedures. Encounters Start End Encounter Admission Attending Care Care Encounter Source Date/Time Date/Time Type Type Clinicians Facility Department ID 2021-11-18 Outpatient Carlos, STLMLC STLMLC [id number] Common 14:37:[id number] [facility] 2021-04-01 Outpatient Carlos, STLMLC STLMLC [id number] Common 08:09:[address] [facility] 2021-03-12 Outpatient Carlos, STLMLC STLMLC [id number] Common 14:09:[address] [facility] 2021-03-12 Outpatient Carlos, STLMLC STLMLC [id number] Common 13:06:[address] [facility] 2021-03-12 Outpatient Carlos, STLMLC STLMLC [id number] Common 12:40:[address] [facility] 2021-03-12 Outpatient Carlos, STLMLC STLMLC [id number] Common 12:40:[address] [facility] 2021-03-12 Outpatient Carlos, STLMLC STLMLC [id number] Common 12:38:[id number] [facility] 2021-03-12 Outpatient Carlos, STLMLC STLMLC [id number] Common 12:37:[address] [facility] 2021-03-12 Outpatient Carlos, STLMLC STLMLC [id number] Common 11:02:[address] [facility] 2021-03-12 Outpatient Carlos, STLMLC STLMLC [id number] Common 10:59:[address] [facility] 2021-03-12 Outpatient STLMLC STLMLC [id number] Common 10:59:[id number] [facility] 2021-11-27 2021-11-27 OFFICE STLMLC STLMLC [id number] Co mmon 00:00:00 00:00:00 VISIT [facility] ESTAB PT - CHI LEVEL 4 [facility] 2021-10-29 2021-10-29 OFFICE STLMLC STLMLC [id number] Co mmon 00:00:00 00:00:00 VISIT [facility] ESTAB PT - CHI LEVEL 1 [facility] 2021-03-06 2021-03-06 (TEL) STLMLC STLMLC [id number] Co mmon 00:00:00 00:00:00 [facility] 2021-02-24 2021-02-24 (TEL) STLMLC STLMLC [id number] Co mmon 00:00:00 00:00:00 [facility] 2020-11-28 2020-11-28 OFFICE STLMLC STLMLC [id number] Co mmon 00:00:00 00:00:00 VISIT [facility] PT - CHI LEVEL 2 [facility] 2020-08-28 2020-08-28 Outpatient STLMLC STLMLC [id number] Common 00:00:00 00:00:00 [facility] 2020-05-01 2020-05-01 Outpatient STLMLC STLMLC [id number] Common 00:00:00 00:00:00 [facility] 2020-04-26 2020-04-26 Outpatient STLMLC STLMLC [id number] Common 00:00:00 00:00:00 [facility] 2020-04-25 2020-04-25 Outpatient STLMLC STLMLC [id number] Common 00:00:00 00:00:00 [facility] 2020-04-24 2020-04-24 Outpatient STLMLC STLMLC [id number] Common 00:00:00 00:00:00 [facility] 2020-04-22 2020-04-22 Outpatient STLMLC STLMLC [id number] Common 00:00:00 00:00:00 [facility] 2020-04-17 2020-04-17 Outpatient STLMLC STLMLC [id number] Common 00:00:00 00:00:00 [facility] 2020-04-15 2020-04-15 Outpatient STLMLC STLMLC [id number] Common 00:00:00 00:00:00 [facility] 2020-04-12 2020-04-12 Outpatient STLMLC STLMLC [id number] Common 00:00:00 00:00:00 [facility] 2020-02-26 2020-02-26 Outpatient STLMLC STLMLC [id number] Common 00:00:00 00:00:00 [facility] 2020-02-06 2020-02-06 Outpatient STLMLC STLMLC [id number] Common 00:00:00 00:00:00 [facility] 2020-01-29 2020-01-29 Outpatient STLMLC STLMLC [id number] Common 00:00:00 00:00:00 [facility] 2020-01-16 2020-01-16 Outpatient STLMLC STLMLC [id number] Common 00:00:00 00:00:00 [facility] 2020-01-01 2020-01-01 Outpatient STLMLC STLMLC [id number] Common 00:00:00 00:00:00 [facility] 2020-01-01 2020-01-01 Outpatient STLMLC STLMLC [id number] Common 00:00:00 00:00:00 [facility] 2019-11-02 2019-11-02 [id number] Common 13:08:00 13:08:00 t Specialty/U Sp alf Specialty rology - [facility] /[facility] 2019-11-01 2019-11-01 [facility] [id number] Common 15:04:00 15:04:00 t Specialty/U Sp alf Specialty rology - [facility] /[facility] 2019 2019 Outpatient [facility] [id number] Common 15:15:00 15:15:00 t Specialty/U Sp alf Specialty rology - [facility] /[facility] 2019-10-13 2019-10-13 Outpatient Tai Lujant [id number] Common 11:29:00 11:29:00 t Specialty/U Sp alf Specialty rology - [facility] /[facility] 2019-10-10 2019-10-10 Outpatient [facility] [id number] Common 16:12:00 16:12:00 t Specialty/U Sp alf Specialty rology - [facility] /[facility] 2019-10-09 2019-10-09 Outpatient Tai Lujant [id number] Common 12:54:00 12:54:00 t Specialty/U Sp alf Specialty rology - [facility] /[facility] 2019-10-02 2019-10-02 Outpatient Tai Lujant [id number] Common 15:00:00 15:00:00 t Specialty/U Sp alf Specialty rology - [facility] /[facility] 2019-10-02 2019-10-02 Outpatient Tai Lujant [id number] Common 13:33:00 13:33:00 t Specialty/U Sp alf Specialty rology - [facility] /[facility] 2019-07-05 2019-07-05 Outpatient [facility] [id number] Common 13:11:00 13:11:00 t Specialty/U Sp alf Specialty rology - [facility] /[facility] 2019-05-16 2019-05-16 Outpatient [facility] [id number] Common 14:24:00 14:24:00 t Specialty/U Sp alf Specialty rology - [facility] /[facility] 2019-04-17 2019-04-17 Outpatient [facility] [id number] Common 11:33:00 11:33:00 t Specialty/U Sp alf Specialty rology - [facility] 2019-04-13 2019-04-13 Outpatient Tai [place] [id number] Common 16:15:00 16:15:00 t Specialty/U Sp alf Specialty rology - [facility] 2019-04-04 2019-04-04 Outpatient Tai Wheeler [id number] Common 15:00:00 15:00:00 t Specialty/U Sp alf Specialty rology - [facility] /[facility] 2019-03-13 2019-03-13 Outpatient Tai Wheeler [id number] Common 11:23:00 11:23:00 t Specialty/U Sp alf Specialty rology - [facility] 2019-03-10 2019-03-10 Outpatient Tai Wheeler [id number] Common 10:43:00 10:43:00 t Specialty/U Sp alf Specialty rology - [facility] 2019-02-23 2019-02-23 Outpatient Tai Wheeler [id number] Common 14:00:00 14:00:00 t Specialty/U Sp alf Specialty rology - [facility] Results This patient has no known results.
[2022-07-09 13:25] LABS: Absolute Lymphocytes (CBC) 1.2 K/uL (0.7-4.9); Hematocrit 42.4 % (39.6-49.0); Lymphocytes % 20.5 % (15.3-44.8); MCV 101.4 fL (80-100); MPV 9.1 fL (7.6-11.3); RBC Red Blood Cell Count 4.18 M/uL (4.33-5.43)
--- NOTE | 2022-07-09 13:42 | RAD REPORT ---
EXAM DESCRIPTION: CT - Head Brain Wo Cont - 07/09/2022 1:17 pm CLINICAL HISTORY: Blurred vision COMPARISON: None TECHNIQUE: Computed axial tomography of the head was obtained. IV contrast was not requested. All CT scans are performed using dose optimization technique as appropriate and may include automated exposure control or mA/KV adjustment according to patient size. FINDINGS: An intracranial bleed is not seen The ventricles are normal in caliber No extra-axial fluid collection is noted. No significant hypodensity within the brain Fluid within the sinuses/ mastoids is not seen. IMPRESSION: No acute intracranial abnormality is seen If patient's symptoms persist MRI of the brain would be recommended
[2022-07-09 13:45] LABS: Albumin 4.1 g/dL (3.4-5.0); Bilirubin Direct 0.4 mg/dL (0-0.2); Bilirubin Indirect, Calculated 0.7 mg/dL (0.2-0.8); Bilirubin Total 1.1 mg/dL (0.2-1.0); Potassium 4.3 mEq/L (3.5-5.1); Protein, Total 7.6 g/dL (6.4-8.2); Troponin High Sensitivity 5.6 pg/mL (<58.9)
--- NOTE | 2022-07-09 13:51 | RAD REPORT ---
EXAM DESCRIPTION: Marcio Single View07/09/2022 1:27 pm CLINICAL HISTORY: COPD/weakness COMPARISON: 2021 FINDINGS: The lungs are moderately hyperaerated The lungs appear clear of acute infiltrate. The heart is normal size IMPRESSION: COPD without visualization of an acute abnormality
--- NOTE | 2022-07-09 14:37 | EDPHYS ---
Physician Documentation [facility] Name: Frank Manzanares Jr Age: 81 yrs Sex: Male : 1940 Arrival Date: 07/09/2022 Time: 12:51 Bed 4 Private MD: ED Physician Ventura Jimenez HPI: 07/09 13:37 This 81 yrs old Male presents to ER via Ambulatory with complaints of Vision Problem, ms3 Trouble Walking. 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 Patient denies pain. Patient denies nausea, vomiting, chest pain. Patient endorses shortness of breath.. 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 - Social history:: Smoking status: Patient reports the use of cigarette tobacco products, smokes one-half pack cigarettes per day, Patient uses alcohol, on a daily basis. ROS: 13:37 Constitutional: Negative for fever, and chills. Neck: Negative for injury, pain, and ms3 swelling, Cardiovascular: Negative for chest pain, and palpitations. Respiratory: Negative for shortness of breath, cough, wheezing, and pleuritic chest pain, Abdomen/GI: Negative for abdominal pain, nausea, vomiting, diarrhea, and constipation. 13:37 MS/extremity: Positive for Generalized Weakness. 13:37 All other systems are negative. ms3 Exam: 13:37 Constitutional: This is a well developed, well nourished patient who is awake, alert, ms3 and in no acute distress. Head/Face: Normocephalic, atraumatic. Chest/axilla: Normal chest wall appearance and motion. Nontender with no deformity. Cardiovascular: Regular rate and rhythm with a normal S1 and S2. No gallops, murmurs, or rubs. Normal PMI, no JVD. No pulse deficits. Respiratory: Lungs have equal breath sounds bilaterally, clear to auscultation and percussion. No rales, rhonchi or wheezes noted. No increased work of breathing, no retractions or nasal flaring. Abdomen/GI: Soft, non-tender, with normal bowel sounds. No distension or tympany. No guarding or rebound. No evidence of tenderness throughout. Skin: Warm, dry with normal turgor. Normal color with no rashes, no lesions, and no evidence of cellulitis. MS/ Extremity: Pulses equal, no cyanosis. Neurovascular intact. Full, normal range of motion. 14:50 ECG was reviewed by the Attending Physician. ms3 Vital Signs: 13:07 BP 177 / 91; Pulse 67; Resp 18; Temp 98.3(O); Weight 65.77 kg; Height 5 ft. 8 in. ; ld1 Pain 0/10; 14:12 BP 177 / 98; Pulse 63; Resp 24; Pulse Ox 99% ; ld1 14:36 BP 177 / 100; Pulse 74; Resp 23; Pulse Ox 98% on R/A; ld1 17:08 BP 154 / 98; Pulse 66; Resp 19; Pulse Ox 100% on R/A; ap3 18:07 BP 128 / 72; ap3 13:07 Body Mass Index 22.05 (65.77 kg, 172.72 cm) ld1 13:07 Pain Scale: Adult ld1 NIH Stroke Scale Scores: 13:12 NIHSS Score: 1 ld1 MDM: 13:03 Patient medically screened. ms3 13:37 Data reviewed:. ms3 14:38 I considered the following discharge prescriptions or medication management in the [facility] emergency department Medications were administered in the Emergency Department. See MAR. Independent interpretation of the following test(s) in the Emergency Department EKG: See my EKG interpretation above electronic device monitor: rate is 72 beats/min, Rhythm is normal sinus rhythm, regular, with no ectopy, Interpretation: normal rate, normal rhythm. Historians other than the Patient: Daughter/Son: Daughter. Counseling: I had a detailed discussion with the patient and/or guardian regarding: the historical points, exam findings, and any diagnostic results supporting the discharge/admit diagnosis, lab results, radiology results, the need for outpatient follow up, to return to the emergency department if symptoms worsen or persist or if there are any questions or concerns that arise at home. Response to treatment: the patient's symptoms have mildly improved after treatment, and as a result, I will discharge patient. 18:12 ED course: Work-up negative for acute pathology patient reassessed he states he is bs3 feeling better and his daughter is at bedside he is still slightly unsteady this may be related to his sodium or thiamine deficiency or chronic alcohol use he says he drinks 4 drinks a day but per his daughter she thinks he drinks much more I recommended admission for observation PT however he refused and wanted to go home will discharge home patient could benefit from home health possible physical therapy evaluation advised outpatient follow-up. 07/09 13:04 Order name: Basic Metabolic Panel; Complete Time: 14:21 ms3 07/09 13:04 Order name: CBC with Diff; Complete Time: 14: ms3 07/09 13:04 Order name: LFT's; Complete Time: 14: ms3 07/09 13:04 Order name: Magnesium; Complete Time: 14: ms3 07/09 13:04 Order name: Troponin HS; Complete Time: 14: ms3 07/09 13:04 Order name: XRAY Chest (1 view); Complete Time: 14:21 ms3 07/09 13:04 Order name: CT Head Brain wo Cont; Complete Time: 14:21 ms3 07/09 16:48 Order name: Brain Wo Cont; Complete Time: 18:00 EDMS 07/09 13:04 Order name: EKG; Complete Time: 13:05 ms3 07/09 13:04 Order name: Cardiac monitoring; Complete Time: 13:07 ms3 07/09 13:04 Order name: EKG - Nurse/Tech; Complete Time: 13:11 ms3 07/09 13:04 Order name: IV Saline Lock; Complete Time: 13:13 ms3 07/09 13:04 Order name: Labs collected and sent; Complete Time: 13: ms3 07/09 13:04 Order name: O2 Per Protocol; Complete Time: 13: ms3 07/09 13:04 Order name: O2 Sat Monitoring; Complete Time: 13:07 ms3 EC:50 Rate is 66 beats/min. Rhythm is regular. QRS [place] is Normal. [place] interval is normal. QRS ms3 interval is normal. Clinical impression: Normal ECG. Interpreted by me. Reviewed by me. Administered Medications: 15:09 Drug: Thiamine PO 100 mg Route: PO; ap3 15:11 Follow up: Response: No adverse reaction ap3 15:26 CANCELLED (Physician Discretion): Multivitamin IV 1 amp IV at bolus once; Add to aa5 existing IV. 15:28 Drug: foLIC Acid PO 1 mg Route: PO; ap3 Disposition Summary: 07/09/22 18:13 Discharge Ordered Location: Home(07/09/22 18:13) bs3 Problem: new bs3 Symptoms: have improved bs3 Condition: Fair(07/09/22 18:13) bs3 Diagnosis - Dizziness and giddiness bs3 Followup: bs3 - With: Private Physician - When: 2 - 3 days - Reason: Re-evaluation by your physician Discharge Instructions: - Discharge Summary Sheet bs3 - Dizziness bs3 - Alcohol Abuse and Nutrition bs3 Forms: - Medication Reconciliation Form bs3 - Thank You Letter bs3 - Antibiotic Education bs3 - Prescription Opioid Use bs3 Prescriptions: - multivitamin Oral tablet - take 1 tablet by ORAL route daily; 30 tablet; Refills: 0, Product Selection bs3 Permitted NIH Stroke Scale - NIH Stroke Score Date: 07/09/2022 Time: 13:12 Total Score = 1 10. Dysarthria (speech clarity - read or repeat words) - 0(Normal) 11. Extinction and Inattention (visual/tactile/auditory/spatial/personal) - 0(No abnormality) 1a. Level of Consciousness (LOC) - 0(Alert) 1b. Level of Consciousness (LOC) (Month \\T\\ Age) - 0(Both) 1c. LOC Commands (Open \\T\\ Closes Eyes/Manager Sales And Marketing) - 0(Both) 2. Best Gaze (Lateral Gaze Paresis) - 0(Normal) 3. Visual Field Loss - 1(Partial hemianopia) 4. Facial Palsy - 0(Normal) 5a. Left Arm: Motor (10-second hold) - 0(No drift) 5b. Right Arm: Motor (10-second hold) - 0(No drift) 6a. Left Leg: Motor (5-second hold - always test supine) - 0(No drift) 6b. Right Leg: Motor (5-second hold - always test supine) - 0(No drift) 7. Limb Ataxia (finger/nose \\T\\ heel/herrera - test with eyes open) - 0(Absent) 8. Sensory Loss (pinprick arms/legs/face) - 0(Normal) 9. Best Language: Aphasia (description/naming/reading) - 0(No aphasia) Initials: ld1 Signatures: Dispatcher [employer] EDMS Criselda Ramirez RN RN ap3 Jose Randall, DO ms3 Carmelina Randall RN RN ld1 Ventura Jimenez MD MD bs3 Beverly Berger RN aa5 Corrections: (The following items were deleted from the chart) 15:19 14:36 Home ms3 ms3 15:19 14:36 Stable ms3 ms3 15:19 14:36 Hypo-osmolality and hyponatremia ms3 ms3 15:19 14:36 Muscle weakness (generalized) ms3 ms3 15:19 14:36 Essential (primary) hypertension ms3 ms3 15:26 15:25 Multivitamin IV 1 amp IV at bolus once; Add to existing IV. ordered. ms3 aa5 16:48 15:22 MR STROKE PROTOCOL+MRI.RAD.BRZ ordered. EDMS EDMS
--- NOTE | 2022-07-09 14:37 | ER ---
Nurse's Notes [facility] Name: Frank Manzanares Jr Age: 81 yrs Sex: Male : 1940 Arrival Date: 07/09/2022 Time: 12:51 Bed 4 Private MD: Diagnosis: Dizziness and giddiness Presentation: 07/09 13:07 Chief complaint: Patient states: Difficulty walking and vision change since yesterday ld1 evening at 1800. Coronavirus screen: At this time, the client does not indicate any symptoms associated with coronavirus-19. Ebola Screen: No symptoms or risks identified at this time. An acute neurological deficit is present. Initial Sepsis Screen: Does the patient meet any 2 criteria? No. Patient's initial sepsis screen is negative. Does the patient have a suspected source of infection? No. Patient's initial sepsis screen is negative. Risk Assessment: Do you want to hurt yourself or someone else? Patient reports no desire to harm self or others. Onset of symptoms was July 08, 2022 at 18:00. 13:07 Method Of Arrival: Ambulatory ld1 13:07 Acuity: HEATHER 2 ld1 15:10 Pre-hospital glucose is not applicable to this patient. ap3 Triage Assessment: 13:09 The onset of the patients symptoms was July 08, 2022 at 18:00. General: Appears in no ld1 apparent distress. comfortable, Behavior is calm, cooperative, appropriate for age. Pain: Denies pain. EENT: Reports blurred vision since 1800 07/08/2022. Neuro: Level of Consciousness is awake, alert, obeys commands, Oriented to person, place, time, situation, Reports blurred vision. Cardiovascular: Capillary refill < 3 seconds Patient's skin is warm and dry. Rhythm is sinus rhythm. Respiratory: Airway is patent Respiratory effort is even, unlabored. GI: Abdomen is flat, non-distended. : No signs and/or symptoms were reported regarding the genitourinary system. Derm: No signs and/or symptoms reported regarding the dermatologic system. Musculoskeletal: No signs and/or symptoms reported regarding the musculoskeletal system. 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 - Social history:: Smoking status: Patient reports the use of cigarette tobacco products, smokes one-half pack cigarettes per day, Patient uses alcohol, on a daily basis. Screenin:12 [facility] ED Fall Risk Assessment (Adult) History of falling in the last 3 months, ld1 including since admission No falls in past 3 months (0 pts). Abuse screen: Denies threats or abuse. Denies injuries from another. Nutritional screening: No deficits noted. Tuberculosis screening: No symptoms or risk factors identified. Assessment: 13:12 VAN Scoring: Arm Drift: Patients demonstrates NO arm weakness. Patient is VAN Negative. ld1 Reassessment: See triage assessment. 15:10 TNKase (Tenecteplase) Screening:. ap3 15:22 Reassessment: Patient appears in no apparent distress at this time. No changes from ld1 previously documented assessment. Patient and/or family updated on plan of care and expected duration. Pain level reassessed. Patient is alert, oriented x 3, equal unlabored respirations, skin warm/dry/pink. Vital Signs: 13:07 BP 177 / 91; Pulse 67; Resp 18; Temp 98.3(O); Weight 65.77 kg; Height 5 ft. 8 in. ; ld1 Pain 0/10; 14:12 BP 177 / 98; Pulse 63; Resp 24; Pulse Ox 99% ; ld1 14:36 BP 177 / 100; Pulse 74; Resp 23; Pulse Ox 98% on R/A; ld1 17:08 BP 154 / 98; Pulse 66; Resp 19; Pulse Ox 100% on R/A; ap3 18:07 BP 128 / 72; ap3 13:07 Body Mass Index 22.05 (65.77 kg, 172.72 cm) ld1 13:07 Pain Scale: Adult ld1 NIH Stroke Scale Scores: 13:12 NIHSS Score: 1 ld1 ED Course: 12:57 Patient arrived in ED. mr 12:58 Jose Randall DO is Attending Physician. ms3 13:09 Triage completed. ld1 13:09 Arm band placed on right wrist. EKG completed in triage. Results shown to MD. ld1 13:12 Patient has correct armband on for positive identification. Placed in gown. Bed in low ld1 position. Call light in reach. Side rails up X2. android software engineer on. Pulse ox on. NIBP on. Door closed. Noise minimized. Warm blanket given. 13:12 No provider procedures requiring assistance completed. Inserted saline lock: 20 gauge ld1 in right upper arm, using aseptic technique. Blood collected. 13:18 CT Head Brain wo Cont In Process Unspecified. EDMS 13:24 XRAY Chest (1 view) In Process Unspecified. EDMS 14:35 Theodore Walsh MD is Referral Physician. ms3 14:36 Carmelina Randall, RN is Primary Nurse. ld1 15:10 IV discontinued, intact, bleeding controlled, No redness/swelling at site. Pressure ap3 dressing applied. 17:02 Brain Wo Cont In Process Unspecified. EDMS 18:00 Attending Physician role handed off by Jose Randall DO bs3 18:00 Ventura Jimenez MD is Attending Physician. bs3 Administered Medications: 15:09 Drug: Thiamine PO 100 mg Route: PO; ap3 15:11 Follow up: Response: No adverse reaction ap3 15:26 CANCELLED (Physician Discretion): Multivitamin IV 1 amp IV at bolus once; Add to aa5 existing IV. 15:28 Drug: foLIC Acid PO 1 mg Route: PO; ap3 Medication: 13:12 VIS not applicable for this client. ld1 Outcome: 14:36 Discharge ordered by . ms3 15:09 Discharged to home via wheelchair, with family. ap3 15:09 Condition: good 15:09 Discharge instructions given to patient, family, Instructed on discharge instructions, follow up and referral plans. Demonstrated understanding of instructions, follow-up care. 18:13 Discharge ordered by . bs3 18:44 Patient left the ED. ap3 NIH Stroke Scale - NIH Stroke Score Date: 07/09/2022 Time: 13:12 Total Score = 1 10. Dysarthria (speech clarity - read or repeat words) - 0(Normal) 11. Extinction and Inattention (visual/tactile/auditory/spatial/personal) - 0(No abnormality) 1a. Level of Consciousness (LOC) - 0(Alert) 1b. Level of Consciousness (LOC) (Month \\T\\ Age) - 0(Both) 1c. LOC Commands (Open \\T\\ Closes Eyes/Door Slinger) - 0(Both) 2. Best Gaze (Lateral Gaze Paresis) - 0(Normal) 3. Visual Field Loss - 1(Partial hemianopia) 4. Facial Palsy - 0(Normal) 5a. Left Arm: Motor (10-second hold) - 0(No drift) 5b. Right Arm: Motor (10-second hold) - 0(No drift) 6a. Left Leg: Motor (5-second hold - always test supine) - 0(No drift) 6b. Right Leg: Motor (5-second hold - always test supine) - 0(No drift) 7. Limb Ataxia (finger/nose \\T\\ heel/herrera - test with eyes open) - 0(Absent) 8. Sensory Loss (pinprick arms/legs/face) - 0(Normal) 9. Best Language: Aphasia (description/naming/reading) - 0(No aphasia) Initials: ld1 Signatures: Dispatcher [employer] [facility] Poly Lyons mr JamesCriselda, RN RN ap3 Jose Randall DO DO ms3 Carmelina Randall RN RN ld1 Ventura Jimenez MD MD bs3 Beverly Berger RN aa5
[2022-07-09] MEDS ORDERED: THIAMINE HCL 100 MG TABLET ONE (15:08)
[2022-07-09] MEDS ORDERED: FOLIC ACID 1 MG TABLET ONE (15:35)
--- NOTE | 2022-07-09 17:42 | RAD REPORT ---
EXAM DESCRIPTION: MRI - Brain Wo Cont - 07/09/2022 5:00 pm CLINICAL HISTORY: ataxia COMPARISON: Head CT July 09, 2022 TECHNIQUE: Axial, sagittal, and coronal magnetic resonance images of the brain were obtained. FINDINGS: Mild signal within periventricular, deep and subcortical white matter probably ischemic ch anges secondary to small vessel disease Mild cerebellar atrophy Diffusion-weighted/ADC mapping does not reveal evidence of acute infarction. The ventricles are normal caliber. An extra-axial fluid collection is not noted. Fluid within the sinuses/mastoids is not seen IMPRESSION: No acute intracranial abnormality noted
[2022-07-09 18:59] VITALS: TEMP 98.3
[2022-07-09 19:05] VITALS: O2SAT 100
[2022-07-09 19:06] VITALS: BP 128/72
--- NOTE | 2022-07-12 07:33 | EKG ---
Test Date: 2022-07-09 Test Time: 13:07:13 Honey Grader And Blender: MADAI MEASUREMENT RESULTS: Intervals: Rate: 66 [place]: 162 QRSD: 86 QT: 382 QTc: 400 [place]: P: 78 [place]: 162 QRS: 66 T: 97 INTERPRETIVE STATEMENTS: Normal sinus rhythm Normal ECG Compared to ECG 04/19/2020 11:06:10 Sinus bradycardia no longer present Electronically Signed On 07-12-22 07:26:10 CDT by Andrew Parnell
== END 2022-07-09 18:44 | disposition home or self-care (01) ==
LOC: ER 12:51
DX: R42 Dizziness and giddiness (principal); R53.1 Weakness; I10 Essential (primary) hypertension; K21.9 Gastro-esophageal reflux disease without esophagitis; F17.210 Nicotine dependence, cigarettes, uncomplicated
CPT/HCPCS: 36415; 70450; 70551; 71045; 80048; 80076; 83735; 84484; 85025; 93005; 99285

== ENCOUNTER 2022-08-02 12:45 | Emergency (ER) | payer OTHER ==
--- OUTSIDE RECORDS SUMMARY | 2022-08-02 12:49 | XMS REPORT | Continuity of Care Document ---
:1940 Author Organization [facility] t Address [address] [place] [address] Care Team Providers Name Role Phone Reginaldo Carlos Attending Clinician Unavailable Payers Payer Name Policy Type Policy Number Effective Date Expiration Date Aarti MAURERNA MEDICARE 53 [id number] 2020 [facility] HMO 00:00:00 [facility] MEDICARE [id number] 2007 [facility] NOVITAS 00:00:00 [facility] Problems Condition Condition Condition Status Onset Resolution Last Treating Co mments Source Name Details Category Date Date Treatment Clinician Date 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 - [facility] I y without [facility] obstructio [facility] 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) [facility] [id number] BPH loc Problem Commo n w/o ur Spirit obs/LUTS - CHI [facility] [id number] Adverse Problem Commo n effect of Spirit chemothera - CHI py, [facility] 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 Social History Social Habit Start Date Stop Date Quantity Comments Source History of Tobacco Current Smoker Co mmon Spirit - CHI Use [facility] Sex Assigned At Com mon Spirit - [facility]I [facility] Smoking Status Start Date Stop Date Source Current Smoker 2021-11-27 00:00:00 [facility] Sp[facility] t [facility] Medications Ordered Filled Start Stop [...] Melatonin Melatonin Yes Mackenzie 1 tablet Common Frankie in the [facility] evening [facility] Ranitidine Ranitidine Yes Mackenzie 1 tablet Common [address] [place] as needed [facility] Spiriva Spiriva Yes Mackenzie 1 capsule Com mon HandiHaler HandiHaler Frankie by Spirit inhaling - [facility] the [facility] of the [facility] using the HandiHaler device Metoprolol Metoprolol Yes Mackenzie 1 tablet Common Tartrate Tartrate [employer] [place] with food [facility] tylenol tylenol Yes Mackenzie 1 tab Common [employer] [facility] Amlodipine Amlodipine Yes Mackenzie 1 tablet Common Besylate Besylate [place] Spi rit [facility] Melatonin 5 Melatonin 5 No 1{table QD Melatonin MG MG t_in_th 5 MG e_eveni ng} amLODIPine amLODIPine No 1{table QD amLODIPine Besylate 5 Besylate 5 t} Besylate 5 MG MG MG tylenol tylenol No tylenol Vital Signs Vital Name Observation Time Observation Value Comments Source height 2021-11-27 13:30:00 65.5 [in_i] Common S pirit [facility] weight 2021-11-27 13:30:00 140 [lb_av] Common S pirit [facility] temperature 2021-11-27 13:30:00 98 [degF] Common [facility] bmi 2021-11-27 13:30:00 22.94 kg/m2 Common S pirit [facility] oximetry 2021-11-27 13:30:00 99 % Common S pirit [facility] blood pressure 2021-11-27 13:30:00 168 mm[Hg] Common Spirit - systolic [facility] blood pressure 2021-11-27 13:30:00 72 mm[Hg] Common Spirit - diastolic [facility] height 2021-10-29 14:00:00 65.5 [in_i] [facility] weight 2021-10-29 14:00:00 143 [lb_av] Common S pirit [facility] temperature 2021-10-29 14:00:00 98.6 [degF] Common S [facility] bmi 2021-10-29 14:00:00 23.43 kg/m2 Common S pirit [facility] oximetry 2021-10-29 14:00:00 96 % [facility] respiratory rate 2021-10-29 14:00:00 18 /min Comm on Spirit - [facility] blood pressure 2021-10-29 14:00:00 139 mm[Hg] Common Spirit - systolic [facility] blood pressure 2021-10-29 14:00:00 63 mm[Hg] Common Spirit - diastolic [facility] height 2020-11-28 11:30:00 65.5 [in_i] Common S pirit [facility] weight 2020-11-28 11:30:00 143 [lb_av] Common S pirit [facility] temperature 2020-11-28 11:30:00 97.2 [degF] Common [facility] bmi 2020-11-28 11:30:00 23.43 kg/m2 Common [facility] oximetry 2020-11-28 11:30:00 96 % Common [facility] blood pressure 2020-11-28 11:30:00 104 mm[Hg] Common [facility] - systolic [facility] blood pressure 2020-11-28 11:30:00 51 mm[Hg] Common [facility] - diastolic [facility] Procedures This patient has no known procedures. Encounters Start End Encounter Admission Attending Care Care Encounter Source Date/Time Date/Time Type Type Clinicians Facility Department ID 2021-11-18 Outpatient Carlos, STLMLC STLMLC [id number] Common 14:37:00 Reginaldo [id number] [facility] 2021-04-01 Outpatient Carlos, STLMLC STLMLC [id number] Common 08:09:01 Reginaldo [facility] 2021-03-12 Outpatient Carlos, STLMLC STLMLC [id number] Common 14:09:21 Reginaldo [id number] [facility] 2021-03-12 Outpatient Carlos, STLMLC STLMLC [id number] Common 13:06:07 Reginaldo [id number] [facility] 2021-03-12 Outpatient Carlos, STLMLC STLMLC [id number] Common 12:40:40 Reginaldo [id number] [facility] 2021-03-12 Outpatient Carlos, STLMLC STLMLC [id number] Common 12:40:00 Reginaldo [id number] [facility] 2021-03-12 Outpatient Carlos, STLMLC STLMLC [id number] Common 12:38:46 Reginaldo [id number] [facility] 2021-03-12 Outpatient Carlos, STLMLC STLMLC [id number] Common 12:37:23 Reginaldo [id number] [facility] 2021-03-12 Outpatient Carlos, STLMLC STLMLC [id number] Common 11:02:17 Reginaldo [id number] [facility] 2021-03-12 Outpatient Carlos, STLMLC STLMLC [id number] Common 10:59:36 Reginaldo [id number] [facility] 2021-03-12 Outpatient STLMLC STLMLC [id number] Common 10:59:24 [id number] [facility] 2021-11-27 2021-11-27 OFFICE STLMLC STLMLC [id number] Co mmon 00:00:00 00:00:00 VISIT [facility] PT - CHI LEVEL 4 [facility] 2021-10-29 2021-10-29 OFFICE STLMLC STLMLC [id number] Co mmon 00:00:00 00:00:00 VISIT [facility] PT - CHI LEVEL 1 [facility] 2021-03-06 2021-03-06 (TEL) STLMLC STLMLC [id number] Co mmon 00:00:00 00:00:00 [facility] 2021-02-24 2021-02-24 (TEL) STLMLC STLMLC [id number] Co mmon 00:00:00 00:00:00 [facility] 2020-11-28 2020-11-28 OFFICE STLMLC STLMLC [id number] Co mmon 00:00:00 00:00:00 VISIT [facility] PT - CHI LEVEL 2 [facility] 2020-08-28 2020-08-28 Outpatient STLMLC STLMLC [id number] Common 00:00:00 00:00:00 [facility] 2020-05-01 2020-05-01 Outpatient STLMLC STLMLC [id number] Common 00:00:00 00:00:00 [facility] 2020-04-26 2020-04-26 Outpatient STLMLC STLMLC [id number] Common 00:00:00 00:00:00 [facility] 2020-04-25 2020-04-25 Outpatient STLMLC STLMLC [id number] Common 00:00:00 00:00:00 [facility] 2020-04-24 2020-04-24 Outpatient STLMLC STLMLC [id number] Common 00:00:00 00:00:00 [facility] 2020-04-22 2020-04-22 Outpatient STLMLC STLMLC [id number] Common 00:00:00 00:00:00 [facility] 2020-04-17 2020-04-17 Outpatient STLMLC STLMLC [id number] Common 00:00:00 00:00:00 [facility] 2020-04-15 2020-04-15 Outpatient STLMLC STLMLC [id number] Common 00:00:00 00:00:00 [facility] 2020-04-12 2020-04-12 Outpatient STLMLC STLMLC [id number] Common 00:00:00 00:00:00 [facility] 2020-02-26 2020-02-26 Outpatient STLMLC STLMLC [id number] Common 00:00:00 00:00:00 [facility] 2020-02-06 2020-02-06 Outpatient STLMLC STLMLC [id number] Common 00:00:00 00:00:00 [facility] 2020-01-29 2020-01-29 Outpatient STLMLC STLMLC [id number] Common 00:00:00 00:00:00 [facility] 2020-01-16 2020-01-16 Outpatient STLMLC STLMLC [id number] Common 00:00:00 00:00:00 [facility] 2020-01-01 2020-01-01 Outpatient STLMLC STLMLC [id number] Common 00:00:00 00:00:00 [facility] 2020-01-01 2020-01-01 Outpatient STLMLC STLMLC [id number] Common 00:00:00 00:00:00 [facility] 2019-11-02 2019-11-02 [facility] [id number] Common 13:08:00 13:08:00 t Specialty/U Sp alf Specialty rology - CHI /[facility] 2019-11-01 2019-11-01 [facility] [id number] Common 15:04:00 15:04:00 t Specialty/U Sp alf Specialty rology - CHI /[facility] 2019 2019 Outpatient Tai Lujant [id number] Common 15:15:00 15:15:00 t Specialty/U Sp alf Specialty rology - CHI /[facility] 2019-10-13 2019-10-13 Outpatient Tai Lujant [id number] Common 11:29:00 11:29:00 t Specialty/U Sp alf Specialty rology - CHI /[facility] 2019-10-10 2019-10-10 Outpatient Tai Lujant [id number] Common 16:12:00 16:12:00 t Specialty/U Sp alf Specialty rology - CHI /[facility] 2019-10-09 2019-10-09 Outpatient Tai Lujant [id number] Common 12:54:00 12:54:00 t Specialty/U Sp alf Specialty rology - CHI /[facility] 2019-10-02 2019-10-02 Outpatient Tai Lujant [id number] Common 15:00:00 15:00:00 t Specialty/U Sp alf Specialty rology - CHI /[facility] 2019-10-02 2019-10-02 Outpatient Tai Lujant [id number] Common 13:33:00 13:33:00 t Specialty/U Sp alf Specialty rology - CHI /[facility] 2019-07-05 2019-07-05 Outpatient Tai Lujant [id number] Common 13:11:00 13:11:00 t Specialty/U Sp alf Specialty rology - CHI /[facility] 2019-05-16 2019-05-16 Outpatient Tai Lujant [id number] Common 14:24:00 14:24:00 t Specialty/U Sp alf Specialty rology - CHI /[facility] 2019-04-17 2019-04-17 Outpatient Tai Lujant [id number] Common 11:33:00 11:33:00 t Specialty/U Sp alf Specialty rology - CHI /[facility] 2019-04-13 2019-04-13 Outpatient Tai Wheeler [id number] Common 16:15:00 16:15:00 t Specialty/U Sp alf Specialty rology - CHI /[facility] 2019-04-04 2019-04-04 Outpatient Tai Wheeler [id number] Common 15:00:00 15:00:00 t Specialty/U Sp alf Specialty rology - CHI /[facility] 2019-03-13 2019-03-13 Outpatient Tai Wheeler [id number] Common 11:23:00 11:23:00 t Specialty/U Sp alf Specialty rology - CHI /[facility] 2019-03-10 2019-03-10 Outpatient Tai Wheeler [id number] Common 10:43:00 10:43:00 t Specialty/U Sp alf Specialty rology - CHI /[facility] 2019-02-23 2019-02-23 Outpatient Tai Wheeler [id number] Common 14:00:00 14:00:00 t Specialty/U Sp alf Specialty rology - CHI /[facility] Results This patient has no known results.
[2022-08-02 13:56] LABS: Hematocrit 42.8 % (39.6-49.0); Lymphocytes % 11.6 % (15.3-44.8); MCV 101.4 fL (80-100); MPV 9.7 fL (7.6-11.3); RBC Red Blood Cell Count 4.22 M/uL (4.33-5.43)
[2022-08-02 14:02] LABS: Protime INR 0.97
--- NOTE | 2022-08-02 14:12 | RAD REPORT ---
EXAM DESCRIPTION: RADChest Single View08/02/2022 1:47 pm CLINICAL HISTORY: MALAISE COMPARISON: Chest Single View dated 07/09/2022; Chest Pa And Lat (2 Views) dated 05/15/2021; Chest Sin gle View dated 10/29/2019; Chest Single View dated 10/02/2019 TECHNIQUE: Portable AP view of the chest. FINDINGS: The lungs are clear. Bilateral moderate emphysematous changes again seen. No pneumothorax or effusion. The cardiomediastinal contours are unremarkable. IMPRESSION: No acute cardiopulmonary process.
[2022-08-02 14:14] LABS: Albumin 3.8 g/dL (3.4-5.0); Bilirubin Direct 0.3 mg/dL (0-0.2); Bilirubin Indirect, Calculated 0.7 mg/dL (0.2-0.8); Magnesium 2.6 mg/dL (1.6-2.4); Potassium 4.1 mEq/L (3.5-5.1); Protein, Total 7.4 g/dL (6.4-8.2)
--- NOTE | 2022-08-02 14:20 | RAD REPORT ---
EXAM DESCRIPTION: CT - Head Brain Wo Cont - 08/02/2022 1:55 pm CLINICAL HISTORY: DIZZINESS COMPARISON: Head Brain Wo Cont dated 07/09/2022 TECHNIQUE: Noncontrast head CT images ad were obtained without IV contrast. Multiplanar reformats we re generated and reviewed. All CT scans are performed using dose optimization technique as appropriate and may include automated exposure control or mA/KV adjustment according to patient size. FINDINGS: No intracranial hemorrhage, mass, or edema. Midline structures are unremarkable. Normal ventricular caliber for age. Tejada-white matter differentiation is preserved, without evidence of acute infarct. No abnormal extra- axial fluid collections. Mastoid air cells and visualized portions of the paranasal sinuses are clear. No acute bony findings. IMPRESSION: No evidence of an acute intracranial process.
--- NOTE | 2022-08-02 16:46 | ER ---
Nurse's Notes [facility] Name: Frank Manzanares Jr Age: 81 yrs Sex: Male : 1940 Arrival Date: 08/02/2022 Time: 12:45 Bed 16 Private MD: Diagnosis: Hyponatremia, generalized weakness now resolved;Hyponatremia, generalized weakness now resolved, UTI Presentation: 08/02 13:03 Chief complaint: Patient states: dizziness, weak, N/V for about 3-4 days. Denies vg1 diarrhea. Stated was in ED a couple of weeks ago and was dx with nystagmus. Coronavirus screen: Vaccine status: Patient reports receiving the 2nd dose of the covid vaccine. Client denies travel out of the [place] in the last 14 days. Ebola Screen: Patient negative for fever greater than or equal to 101.5 degrees Fahrenheit, and additional compatible Ebola Virus Disease symptoms Patient denies exposure to infectious person. Patient denies travel to an Ebola-affected area in the 21 days before illness onset. 13:03 Method Of Arrival: Wheelchair vg1 13:05 Risk Assessment: Do you want to hurt yourself or someone else? Patient reports no vg1 desire to harm self or others. Onset of symptoms was July 30, 2022. 13:05 Acuity: HEATHER 3 vg1 18:18 No acute neurological deficit is noted. Pre-hospital glucose is not applicable to this sg5 patient. Initial Sepsis Screen: Does the patient meet any 2 criteria? No. Patient's initial sepsis screen is negative. Does the patient have a suspected source of infection? No. Patient's initial sepsis screen is negative. Triage Assessment: 13:05 The onset of the patients symptoms was. General: Appears in no apparent distress. vg1 uncomfortable, ill, Behavior is cooperative. Pain: Denies pain. Neuro: Level of Consciousness is awake, alert, obeys commands, Oriented to person, place, time, situation, Reports dizziness. Cardiovascular: Patient's skin is warm and dry. Musculoskeletal: Circulation, motion, and sensation intact. unsteady gait. 18:18 The onset of the patients symptoms was August 02, 2022 at 11:00. sg5 Stroke Activation: Physician: Stroke Attending; Name: ; Notified At: ; Arrived At: Physician: Chief Stroke Resident; Name: ; Notified At: ; Arrived At: Physician: Stroke Resident; Name: ; Notified At: ; Arrived At: Physician: ED Attending; Name: ; Notified At: ; Arrived At: Physician: ED Resident; Name: ; Notified At: ; Arrived At: 18:18 not applicable sg5 Historical: - Allergies: 13:05 No Known Allergies; vg1 - Home Meds: 18:20 amlodipine 2.5 mg tablet 1 tab daily [Active]; famotidine 40 mg Oral tablet 1 tab once sg5 [Active]; metoprolol tartrate 25 mg Oral tablet 1 tab daily [Active]; - PMHx: 13:05 "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 - Social history:: Smoking status: Patient reports the use of cigarette tobacco products, smokes one-half pack cigarettes per day. Screenin:18 [facility] ED Fall Risk Assessment (Adult) History of falling in the last 3 months, sg5 including since admission Yes- single mechanical fall (1 pt). Abuse screen: Denies threats or abuse. Nutritional screening: No deficits noted. Tuberculosis screening: No symptoms or risk factors identified. Assessment: 13:48 General: Appears in no apparent distress. comfortable. Pain: Denies pain. Neuro: Level sg5 of Consciousness is awake, alert, obeys commands, Oriented to person, place, time, situation, Appropriate for age Reports dizziness, since 3 to 4 days. Cardiovascular: Capillary refill < 3 seconds Patient's skin is warm and dry. Respiratory: Airway is patent Respiratory effort is even, unlabored. GI: Abdomen is flat, non-distended, Reports nausea. : No signs and/or symptoms were reported regarding the genitourinary system. EENT: No signs and/or symptoms were reported regarding the EENT system. Derm: No signs and/or symptoms reported regarding the dermatologic system. Musculoskeletal: No signs and/or symptoms reported regarding the musculoskeletal system. 14:16 VAN Scoring: Arm Drift: Patients demonstrates NO arm weakness. Patient is VAN Negative. sg5 TNKase (Tenecteplase) Screening:. Vital Signs: 13:03 BP 149 / 95; Pulse 65; Resp 16; Temp 97.8; Pulse Ox 100% ; Weight 63.5 kg; Height 5 ft. vg1 7 in. ; 13:49 BP 176 / 95; Pulse 60; Resp 16; Pulse Ox 97% on R/A; sg5 14:16 BP 160 / 88; Pulse 59; Resp 16; Pulse Ox 98% on R/A; sg5 14:57 BP 167 / 91; Pulse 66; Resp 16; Pulse Ox 100% on R/A; sg5 15:40 BP 157 / 88; Pulse 62; Resp 16; Pulse Ox 98% on R/A; sg5 16:20 BP 151 / 91 RA Supine; Pulse 66; Resp 18; Pulse Ox 99% on R/A; sg5 16:25 BP 141 / 91 RA Sitting; Pulse 67; Resp 18; Pulse Ox 99% ; sg5 16:30 BP 135 / 73 RA Standing; Pulse 77; Resp 18; Pulse Ox 100% on R/A; sg5 17:47 BP 167 / 105; Pulse 62; Resp 18; Pulse Ox 97% on R/A; sg5 13:03 Body Mass Index 21.93 (63.50 kg, 170.18 cm) vg1 NIH Stroke Scale Scores: 13:47 NIHSS Score: 0 sg5 ED Course: 12:46 Patient arrived in ED. mr 12:50 Loly Carreon MD is Attending Physician. sp3 13:05 Triage completed. vg1 13:05 Arm band placed on. vg1 13:15 Zoey Oates, RN is Primary Nurse. sg5 13:47 Inserted saline lock: 20 gauge in left antecubital area, using aseptic technique. Blood sg5 collected. 13:49 XRAY Chest (1 view) In Process Unspecified. EDMS 13:57 CT Head Brain wo Cont In Process Unspecified. EDMS 18:18 Patient has correct armband on for positive identification. Placed in gown. Bed in low sg5 position. Call light in reach. Side rails up X2. Adult w/ patient. Valuables Left with patient. 18:18 No provider procedures requiring assistance completed. IV discontinued. sg5 Administered Medications: 14:52 Drug: NS 0.9% IV 1000 ml Route: IV; Rate: 1 bolus; Site: left antecubital; sg5 17:47 Follow up: IV Status: Completed infusion; IV Intake: 1000ml sg5 17:11 Drug: levofloxacin IVPB 500 mg Volume: 100 ml; Route: IVPB; Infused Over: 60 mins; sg5 Site: left antecubital; 18:17 Follow up: IV Status: Completed infusion; IV Intake: 100ml sg5 Medication: 18:20 VIS not applicable for this client. sg5 Point of Care Testing: Blood Glucose: 18:21 Blood Glucose: 101 mg/dL; sg5 Ranges: Intake: 17:47 IV: 1000ml; Total: 1000ml. sg5 18:17 IV: 100ml; Total: 1100ml. sg5 Outcome: 16:46 Discharge ordered by . sp3 18:18 Discharged to home via wheelchair, with family. sg5 18:18 Condition: good 18:18 Discharge instructions given to patient, Instructed on discharge instructions, follow up and referral plans. 18:21 Patient left the ED. sg5 NIH Stroke Scale - NIH Stroke Score Date: 08/02/2022 Time: 13:47 Total Score = 0 10. Dysarthria (speech clarity - read or repeat words) - 0(Normal) 11. Extinction and Inattention (visual/tactile/auditory/spatial/personal) - 0(No abnormality) 1a. Level of Consciousness (LOC) - 0(Alert) 1b. Level of Consciousness (LOC) (Month \\T\\ Age) - 0(Both) 1c. LOC Commands (Open \\T\\ Closes Eyes/Systems Spec) - 0(Both) 2. Best Gaze (Lateral Gaze Paresis) - 0(Normal) 3. Visual Field Loss - 0(No visual loss) 4. Facial Palsy - 0(Normal) 5a. Left Arm: Motor (10-second hold) - 0(No drift) 5b. Right Arm: Motor (10-second hold) - 0(No drift) 6a. Left Leg: Motor (5-second hold - always test supine) - 0(No drift) 6b. Right Leg: Motor (5-second hold - always test supine) - 0(No drift) 7. Limb Ataxia (finger/nose \\T\\ heel/herrera - test with eyes open) - 0(Absent) 8. Sensory Loss (pinprick arms/legs/face) - 0(Normal) 9. Best Language: Aphasia (description/naming/reading) - 0(No aphasia) Initials: sg5 Signatures: Dispatcher [employer] Bravo Victoria, RN RN vg1 Loly Carreon MD MD sp3 Zoey Oates, RN RN sg5
--- NOTE | 2022-08-02 16:46 | EDPHYS ---
Physician Documentation [facility] Name: Frank Manzanares Jr Age: 81 yrs Sex: Male : 1940 Arrival Date: 08/02/2022 Time: 12:45 Bed 16 Private MD: ED Physician Loly Carreon HPI: 08/02 13:20 This 81 yrs old Male presents to ER via Wheelchair with complaints of General Weakness, sp3 Nausea/Vomiting, Dizziness. 13:20 81-year-old male who presents to the ED with chief complaint generalized weakness and sp3 changes in vision/dizziness/vertigo he was also seen on July 09 here in this ED with a negative CT scan of the head, negative chest x-ray and no significant abnormalities on his lab work now presents again for similar symptoms. He states he has not significantly gotten better after taking the multivitamins that he was told to do so. He has not been on any meclizine or similar medication. He denies any headache, fever, chest pain, shortness of breath, back pain, abdominal pain, vomiting or diarrhea, rash, known sick contacts, travel history, prolonged immobilization, or any other signs or symptoms on ROS at this time. Symptoms are worse when he ambulates. Family member states the symptoms gets confused. He has a history of alcohol consumption. He denies any recent alcohol intake.. Historical: - Allergies: 13:05 No Known Allergies; vg1 - Home Meds: 18:20 amlodipine 2.5 mg tablet 1 tab daily [Active]; famotidine 40 mg Oral tablet 1 tab once sg5 [Active]; metoprolol tartrate 25 mg Oral tablet 1 tab daily [Active]; - PMHx: 13:05 "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 - Social history:: Smoking status: Patient reports the use of cigarette tobacco products, smokes one-half pack cigarettes per day. ROS: 13:21 Constitutional: Negative for fever, chills, and weight loss, Eyes: Negative for injury, sp3 pain, redness, and discharge, ENT: Negative for injury, pain, and discharge, Neck: Negative for injury, pain, and swelling, Cardiovascular: Negative for chest pain, palpitations, and edema, Respiratory: Negative for shortness of breath, cough, wheezing, and pleuritic chest pain, Abdomen/GI: Negative for abdominal pain, nausea, vomiting, diarrhea, and constipation, Back: Negative for injury and pain, MS/Extremity: Negative for injury and deformity, Skin: Negative for injury, rash, and discoloration, Psych: Negative for depression, anxiety, suicide ideation, homicidal ideation, and hallucinations, Allergy/Immunology: Negative for hives, rash, and allergies, Endocrine: Negative for neck swelling, polydipsia, polyuria, polyphagia, and marked weight changes. 13:21 All other systems are negative. Exam: 13:22 Constitutional: This is a well developed, well nourished patient who is awake, alert, sp3 and in no acute distress. Head/Face: Normocephalic, atraumatic. ENT: Nares patent. No nasal discharge, no septal abnormalities noted. External auditory canals are clear. Oropharynx with no redness, swelling, or masses, exudates, or evidence of obstruction, uvula midline. Mucous membranes moist. Neck: Trachea midline, no thyromegaly or masses palpated, and no cervical lymphadenopathy. Supple, full range of motion without nuchal rigidity, or vertebral point tenderness. No Meningismus. Chest/axilla: Normal chest wall appearance and motion. Nontender with no deformity. No lesions are appreciated. Cardiovascular: Regular rate and rhythm with a normal S1 and S2. No gallops, murmurs, or rubs. Normal PMI, no JVD. No pulse deficits. Abdomen/GI: Soft, non-tender, with normal bowel sounds. No distension or tympany. No guarding or rebound. No evidence of tenderness throughout. Skin: Warm, dry with normal turgor. Normal color with no rashes, no lesions, and no evidence of cellulitis. MS/ Extremity: Pulses equal, no cyanosis. Neurovascular intact. Full, normal range of motion. Psych: Awake, alert, with orientation to person, place and time. Behavior, mood, and affect are within normal limits. 13:22 Eyes: Mild horizontal nystagmus noted.. 13:22 Neuro: Global weakness noted. No focal neurodeficits. Cranial nerves II through XII are intact. Mental status is normal. Gait not assessed.. 13:51 ECG was reviewed by the Attending Physician. EKG demonstrates normal sinus rhythm at 60 sp3 bpm with normal intervals, normal QRS, normal axis, nonspecific diffuse ST/T changes without evidence of acute ischemia. Isolated PVC is also noted. Vital Signs: 13:03 BP 149 / 95; Pulse 65; Resp 16; Temp 97.8; Pulse Ox 100% ; Weight 63.5 kg; Height 5 ft. vg1 7 in. ; 13:49 BP 176 / 95; Pulse 60; Resp 16; Pulse Ox 97% on R/A; sg5 14:16 BP 160 / 88; Pulse 59; Resp 16; Pulse Ox 98% on R/A; sg5 14:57 BP 167 / 91; Pulse 66; Resp 16; Pulse Ox 100% on R/A; sg5 15:40 BP 157 / 88; Pulse 62; Resp 16; Pulse Ox 98% on R/A; sg5 16:20 BP 151 / 91 RA Supine; Pulse 66; Resp 18; Pulse Ox 99% on R/A; sg5 16:25 BP 141 / 91 RA Sitting; Pulse 67; Resp 18; Pulse Ox 99% ; sg5 16:30 BP 135 / 73 RA Standing; Pulse 77; Resp 18; Pulse Ox 100% on R/A; sg5 17:47 BP 167 / 105; Pulse 62; Resp 18; Pulse Ox 97% on R/A; sg5 13:03 Body Mass Index 21.93 (63.50 kg, 170.18 cm) vg1 NIH Stroke Scale Scores: 13:47 NIHSS Score: 0 sg5 MDM: 13:24 Data reviewed: vital signs, nurses notes, lab test result(s), radiologic studies. ED sp3 course: 81-year-old male with history of distant bladder cancer, hypertension, recent nystagmus on his visit 3 weeks ago now presents for similar generalized weakness and vertiginous symptoms. We will obtain CT scan of the head again, revisit laboratory values and repeat them today, and consider administering meclizine p.o. Urine analysis is also pending. Disposition will be dependent on patient course and work-up. Differential diagnosis includes dehydration, peripheral vertigo, central vertigo, TIA/CVA spectrum, infection (pneumonia, UTI, viral syndrome), among others. Lower likelihood of ACS or PE.. 16:45 ED course: Patient is not orthostatic and patient is now able to stand and ambulate. We sp3 will safely discharge him home at this time.. 16:46 Patient medically screened. sp3 16:57 ED course: UA demonstrates positive UTI. We will administer Levaquin 500 mg IV here and sp3 discharge patient home on p.o. course.. 08/02 13:14 Order name: Basic Metabolic Panel; Complete Time: 14:37 sp3 08/02 13:14 Order name: CBC with Diff; Complete Time: 14:37 sp3 08/02 13:14 Order name: LFT's; Complete Time: 14:37 sp3 08/02 13:14 Order name: Magnesium; Complete Time: 14:37 sp3 08/02 13:14 Order name: PT-INR; Complete Time: 14:37 sp3 08/02 13:14 Order name: Troponin HS; Complete Time: 14:37 sp3 08/02 13:14 Order name: UAM; Complete Time: 16:56 sp3 08/02 13:14 Order name: Alcohol Level; Complete Time: 14:37 sp3 08/02 16:55 Order name: Urine Culture [facility] 08/02 13:14 Order name: XRAY Chest (1 view); Complete Time: 14:37 sp3 08/02 13:14 Order name: CT Head Brain wo Cont; Complete Time: 14:37 sp3 08/02 13:14 Order name: EKG; Complete Time: 13:15 sp3 08/02 13:14 Order name: Cardiac monitoring sp3 08/02 13:14 Order name: EKG - Nurse/Tech; Complete Time: 13:37 sp3 08/02 13:14 Order name: IV Saline Lock; Complete Time: 13:46 sp3 08/02 13:14 Order name: Labs collected and sent; Complete Time: 13:46 sp3 08/02 13:14 Order name: O2 Per Protocol sp3 08/02 13:14 Order name: O2 Sat Monitoring sp3 Administered Medications: 14:52 Drug: NS 0.9% IV 1000 ml Route: IV; Rate: 1 bolus; Site: left antecubital; sg5 17:47 Follow up: IV Status: Completed infusion; IV Intake: 1000ml sg5 17:11 Drug: levofloxacin IVPB 500 mg Volume: 100 ml; Route: IVPB; Infused Over: 60 mins; sg5 Site: left antecubital; 18:17 Follow up: IV Status: Completed infusion; IV Intake: 100ml sg5 Point of Care Testing: Blood Glucose: 18:21 Blood Glucose: 101 mg/dL; sg5 Ranges: Critical Glucose Levels:Adult <50 mg/dl or >400 mg/dl <40 mg/dl or >180 mg/dl Disposition Summary: 08/02/22 16:46 Discharge Ordered Location: Home sp3 Condition: Stable sp3 Diagnosis - Hyponatremia, generalized weakness now resolved sp3 - Hyponatremia, generalized weakness now resolved, UTI sp3 Followup: sp3 - With: Private Physician - When: Upon discharge from the Emergency Department - Reason: Continuance of care Discharge Instructions: - Discharge Summary Sheet sp3 - Hyponatremia sp3 - Urinary Tract Infection, Adult sp3 Forms: - Medication Reconciliation Form sp3 - Thank You Letter sp3 - Antibiotic Education sp3 - Prescription Opioid Use sp3 Prescriptions: - levofloxacin 500 mg Oral Tablet - take 1 tablet by ORAL route once daily for 6 days; 6 tablet; Refills: 0, sp3 Product Selection Permitted NIH Stroke Scale - NIH Stroke Score Date: 08/02/2022 Time: 13:47 Total Score = 0 10. Dysarthria (speech clarity - read or repeat words) - 0(Normal) 11. Extinction and Inattention (visual/tactile/auditory/spatial/personal) - 0(No abnormality) 1a. Level of Consciousness (LOC) - 0(Alert) 1b. Level of Consciousness (LOC) (Month \\T\\ Age) - 0(Both) 1c. LOC Commands (Open \\T\\ Closes Eyes/Inspector Set Up And Lay Out) - 0(Both) 2. Best Gaze (Lateral Gaze Paresis) - 0(Normal) 3. Visual Field Loss - 0(No visual loss) 4. Facial Palsy - 0(Normal) 5a. Left Arm: Motor (10-second hold) - 0(No drift) 5b. Right Arm: Motor (10-second hold) - 0(No drift) 6a. Left Leg: Motor (5-second hold - always test supine) - 0(No drift) 6b. Right Leg: Motor (5-second hold - always test supine) - 0(No drift) 7. Limb Ataxia (finger/nose \\T\\ heel/herrera - test with eyes open) - 0(Absent) 8. Sensory Loss (pinprick arms/legs/face) - 0(Normal) 9. Best Language: Aphasia (description/naming/reading) - 0(No aphasia) Initials: sg5 Signatures: Dispatcher [employer] Teresa Bell, RN RN vg1 Loly Carreon MD MD sp3 Zoey Oates RN RN sg5
[2022-08-02 16:51] LABS: Specific Gravity 1.014 (1.005-1.030); Urine Bacteria None Seen /HPF (<20); Urine Bilirubin NEGATIVE (Negative); Urine Blood Negative (Negative); Urine Clarity Extremely Turbid (Clear); Urine Color Yellow (Yellow); Urine Glucose NEGATIVE (Negative); Urine Mucus Slight /HPF (None Seen); Urine Protein NEGATIVE (Negative); Urine RBC <5 /HPF (None Seen); Urine Urobilinogen Normal (Normal)
[2022-08-02] MEDS ORDERED: Levofloxacin500mg IV 500 MG/100 ML BAG IV ONE (17:17)
[2022-08-02 18:29] VITALS: TEMP 97.8
[2022-08-02 18:43] VITALS: BP 167/105; O2SAT 97
--- NOTE | 2022-08-05 19:18 | EKG ---
Test Date: 2022-08-02 Test Time: 13:36:07 Process Cheese Cooker: SG MEASUREMENT RESULTS: Intervals: Rate: 68 WA: 162 QRSD: 78 QT: 406 QTc: 431 [place]: P: 21 WA: 162 QRS: 62 T: 83 INTERPRETIVE STATEMENTS: Sinus rhythm with occasional premature ventricular complexes Cannot rule out Anterior infarct, age undetermined Abnormal ECG Compared to ECG 07/09/2022 13:07:13 Ventricular premature complex(es) now present Myocardial infarct finding now present Electronically Signed On 08-05-22 19:12:08 CDT by Simón Oliva
== END 2022-08-02 18:21 | disposition home or self-care (01) ==
LOC: ER 12:45
DX: E87.6 Hypokalemia (principal); N39.0 Urinary tract infection, site not specified; I10 Essential (primary) hypertension; F17.210 Nicotine dependence, cigarettes, uncomplicated
CPT/HCPCS: 36415; 70450; 71045; 80048; 80076; 81001; 82077; 83735; 84484; 85025; 85610; 87077; 87086; 87088; 87186; 93005; 96361; 96365; 99285

== ENCOUNTER 2023-06-22 06:45 | Day surgery (SDC) | payer OTHER ==
--- NOTE | 2023-06-17 11:51 | RAD REPORT ---
EXAM DESCRIPTION: RAD - Chest Pa And Lat (2 Views) - 06/17/2023 11:44 am CLINICAL HISTORY: pre op Chest pain. COMPARISON: Chest Single View dated 08/02/2022; Chest Single View dated 07/09/2022; Chest Pa And Lat ( 2 Views) dated 05/15/2021; Chest Single View dated 10/29/2019; Abdomen Pelvis W/Wo Contrast dated 02/15 FINDINGS: Diffuse COPD is seen. There is right hilar soft tissue prominence present, more prominent than on prior study. Recommend followup CT chest for further evaluation. The heart is normal in size. No displaced fractures. IMPRESSION: Prominent diffuse COPD. Prominent soft tissue fullness in the right hilar region could be a mass. Recommend follow-up CT ches t evaluation.
[2023-06-17 12:09] LABS: Absolute Eosinophils 0.1 K/uL (0-0.5); Absolute Lymphocytes (CBC) 1.5 K/uL (0.7-4.9); Absolute Monocytes 0.5 K/uL (0.1-1.3); Absolute Neutrophil 4.6 K/uL (1.8-8.0); Basophils % 0.6 % (0-1.3); Eosinophils % 1.3 % (0-4.4); Hematocrit 41.9 % (39.6-49.0); Hemoglobin 14.1 g/dL (13.6-17.9); Lymphocytes % 21.8 % (15.3-44.8); MCH 33.3 pg (27.0-35.0); MCHC 33.7 g/dL (32.0-36.0); MCV 98.6 fL (80-100); MPV 9.7 fL (7.6-11.3); Monocytes % 8.1 % (3.3-12.3); Neutrophils % 68.2 % (41.7-73.7); Platelets 173 thou/uL (152-406); RBC Red Blood Cell Count 4.25 M/uL (4.33-5.43); Red Cell Distribution Width 13.8 % (12.1-15.2)
[2023-06-17 12:11] LABS: PT Prothrombin Time 10.7 SECONDS (9.5-12.5); Protime INR 0.97
[2023-06-17 12:27] LABS: Anion Gap 7.5 mEq/L (5.0-15.0); Potassium 4.5 mEq/L (3.5-5.1)
--- NOTE | 2023-06-18 14:39 | EKG ---
Test Date: 2023-06-17 Test Time: 11:46:43 Power Screwdriver Operator: CD MEASUREMENT RESULTS: Intervals: Rate: 58 OH: 192 QRSD: 78 QT: 406 QTc: 398 [place]: P: 83 OH: 192 QRS: 72 T: 80 INTERPRETIVE STATEMENTS: Sinus bradycardia Septal infarct, age undetermined Abnormal ECG Compared to ECG 08/02/2022 13:36:07 Sinus rhythm no longer present Ventricular premature complex(es) no longer present Myocardial infarct finding still present Electronically Signed On 06-18-23 14:37:34 CDT by Simón Oliva
[2023-06-22] MEDS: Ringers Lactate 1,000 ML IV ONE (07:00)
[2023-06-22] MEDS ORDERED: propofoL 200 MG/20 ML VIAL IV ONE (07:24)
[2023-06-22] MEDS ORDERED: FENTANYL CITR 100 MCG/2 ML ONE (07:24)
[2023-06-22] MEDS ORDERED: ONDANSETRON 4 MG/2 ML VIAL ONE (07:24)
[2023-06-22] MEDS: CEFAZOLIN SODIUM 1 GM/VIAL ONE (08:35)
[2023-06-22] MEDS ORDERED: EPHEDRINE SULF 50 MG/ML VIAL ONE (08:35)
[2023-06-22 09:59] VITALS: TEMP 97.6
[2023-06-22] MEDS: HYDROMORPHONE HCL 1 MG/ML INJ ONE (10:06)
[2023-06-22] MEDS ORDERED: Ringers Lactate 1,000 ML IV ONE (10:26)
[2023-06-22] MEDS ORDERED: PHENAZOPYRIDINE 100MG TAB PO ONE (10:26)
[2023-06-22] MEDS ORDERED: CODEINE 30MG/APAP 300MG TAB PO PRN (10:26)
[2023-06-22 13:16] VITALS: BP 132/66; O2SAT 99
--- NOTE | 2023-06-22 13:54 | OP ---
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 Principal Procedure: Prostatic urethral lift/UroLift with 5 implants used, 1 pull-through resulting in 4 successfully placed. Indication For Procedure: Mr. Manzanares is an 82-year-old gentleman with history of bladder cancer follo wing treatment and surveillance without signs of recurrence, who had longstanding issues with lower u rinary tract obstruction due to BPH with anterior lobar overhang after having prior resected inferior component via TURP. He was thus counseled on the potential to further benefits his lower urinary sy mptoms with the procedure like the UroLift, which was minimally invasive, as he was not interested in undergoing another TURP or other resection or ablation procedure. Procedure In Detail: The patient was consented in the preoperative holding area before being transfe rred to the operative suite where general anesthesia was induced. He was given Ancef 1 g IV antimicr obial prophylaxis, and pneumo boots were provided for DVT prophylaxis. He was placed in the lithotom y position, padded and secured to the table appropriately, and his genitalia were prepped with Hibicl ens before being draped in standard fashion. The case was begun using the 20-Bhutanese UroLift sheath a nd a visual obturator to traverse the urethra and into the bladder. The bladder was decompressed of fluid and urine, and the previously observed anatomic obstruction via the anterolateral overhang was again observed. As a result, I switched the visual obturator for a UroLift delivery device and the f irst implant. I thus targeted that anterolateral tissue in the patient's left hemiprostate at around the 1 o'clock position and advanced the scope approximately 1.5 to 2 cm distal to the tissue origina tion within the bladder and until I could see the previously resected bladder neck inferiorly suggest ing I was within the prostatic fossa. There, I angled the scope about 10 to 15 degrees laterally aga inst the tissue and pulled the trigger once deploying the needle through the substance of the prostat e. I thus angled the tissue an additional 15 to 20 degrees to compress that tissue and ensure the ne edle tip was delivered through to the capsular surface. I then pulled the trigger a second time depl oying the capsular tab and partially retracting the needle. I then pulled the trigger a third time t ensioning the suture and completely retracting the needle. I then advanced the scope back toward the midline and about 2 to 3 mm toward the bladder neck ensuring the tip was within the prostatic tissue at the bladder neck before pulling the trigger a fourth time deploying the urethral end piece and ta iloring the suture. This did nicely anteriorly lift the prostate tissue in that location; so I advan rosa the scope back into the bladder and switched the UroLift delivery device for a new implant. This was targeted in a similar position on the patient's right side at about the 11 o'clock position, and ultimately a second implant was placed there approximately 2 cm distal to the bladder neck opening. This did create a beautiful anterior channel at the bladder neck and so I surveyed the channel creat ed using a visual obturator. There was some mild residual apical lateral lobar tissue intruding; so I elected to place an additional 2 implants in that region. The first implant attempted at the patie nt's left apex did unfortunately not situate properly and seemed to pull through. As a result, I swi tched for the cystoscope and a grasper where I grasped that urethral end piece and pulled it and both ends came out with both the capsular tab and the end piece intact. As a result, I placed a third im plant successfully on the patient's right side at the apex and a fourth implant successfully on the p atient's left side at the apex for a total of 4 implants successfully placed with 5 implants used and 1 pulled through that was removed. In the end, there was a beautiful continuous anterior channel vi sible from the striated sphincter into the bladder neck, and there was a minimal degree of hematuria. As a result, I left his bladder full and removed the scope before replacing an 18-Bhutanese urethral F oley catheter with ease into his bladder. A 15 cc of sterile water was placed in the balloon, and th e catheter was allowed to decompress of some light pink urine. This was connected to a leg bag. He was then awakened from general anesthesia and taken out of the lithotomy position. He was then trans ferred to a stretcher before being transferred to the recovery room in good condition. Complications: None. Discharge Disposition: He will be standard followup UroLift pathway with followup established in [facility] [place] 1 month's time. WR/MODL Voice ID: [id number] Report ID: [id number]
== END 2023-06-22 12:45 | disposition home or self-care (01) ==
LOC: OR 06:45
PROVIDERS: ATTEND Urology
PROC: 0T7D8DZ Dilation of Urethra with Intraluminal Device, Via Natural or Artificial Opening Endoscopic (ICD-10-PCS; principal; 2023-06-22 08:15)
DX: N40.1 Benign prostatic hyperplasia with lower urinary tract symptoms (principal); N13.8 Other obstructive and reflux uropathy; I10 Essential (primary) hypertension; J44.9 Chronic obstructive pulmonary disease, unspecified; K21.9 Gastro-esophageal reflux disease without esophagitis
CPT/HCPCS: 93005; 87088; 85025; 87086; 80048; 36415; 85610; 71046; J2704; J3010; J1170; J2405; J7120 ×2; J0690; C9740

== ENCOUNTER 2023-10-19 09:51 | Day surgery (SDC) | payer OTHER ==
[2023-10-15 15:13] LABS: Anion Gap 9.5 mEq/L (5.0-15.0); Potassium 4.5 mEq/L (3.5-5.1)
[2023-10-15 15:26] LABS: Absolute Basophils 0.1 K/uL (0-0.5); Absolute Eosinophils 0.1 K/uL (0-0.5); Absolute Lymphocytes (CBC) 1.2 K/uL (0.7-4.9); Absolute Monocytes 0.6 K/uL (0.1-1.3); Absolute Neutrophil 5.2 K/uL (1.8-8.0); Basophils % 0.7 % (0-1.3); Hematocrit 41.8 % (39.6-49.0); Hemoglobin 13.9 g/dL (13.6-17.9); Lymphocytes % 16.1 % (15.3-44.8); MCH 33.5 pg (27.0-35.0); MCHC 33.4 g/dL (32.0-36.0); MCV 100.4 fL (80-100); MPV 9.4 fL (7.6-11.3); Monocytes % 8.8 % (3.3-12.3); Neutrophils % 72.4 % (41.7-73.7); Platelets 207 thou/uL (152-406); RBC Red Blood Cell Count 4.16 M/uL (4.33-5.43); Red Cell Distribution Width 14.2 % (12.1-15.2)
[2023-10-19] MEDS: NA CHLORIDE 0.9% 1,000 ML ONE (11:10)
[2023-10-19] MEDS ORDERED: NS 0.9% VIAL 20 ML ONE (11:17)
[2023-10-19] MEDS ORDERED: HEPARIN 5000 UNIT/ML 1 ML VIAL ONE (11:17)
[2023-10-19] MEDS ORDERED: propofoL 200 MG/20 ML VIAL IV ONE (11:43)
[2023-10-19] MEDS ORDERED: FENTANYL CITR 100 MCG/2 ML ONE (11:43)
[2023-10-19] MEDS ORDERED: LIDOCAINE 2% MPF 5 ML VIAL ONE (11:43)
[2023-10-19] MEDS ORDERED: ONDANSETRON 4 MG/2 ML VIAL ONE (11:43)
[2023-10-19] MEDS ORDERED: EPHEDRINE SULF 50 MG/ML VIAL ONE (12:18)
[2023-10-19] MEDS: CEFAZOLIN SODIUM 1 GM/VIAL ONE (12:22)
[2023-10-19] MEDS ORDERED: dexAMETHasone 10 MG/ML VIAL ONE (12:25)
[2023-10-19] MEDS: LIDOCAINE HCL/EPINEPHRINE 20 ML MDV ONE (12:44)
--- NOTE | 2023-10-19 13:10 | P.OP ---
Preoperative diagnosis: Need for chemotherapy - Lung Cancer Postoperative diagnosis: Need for chemotherapy - Lung Cancer Primary procedure: Placement of RIGHT internal jugular port a cath Secondary procedure: Ultrasound and flouroscopic guiadance with interpretation Anesthesia: GETA + Local Estimated blood loss: <5cc Specimen: none Findings: Catheter @ SVC Complications: None Implants: Port a cath Transferred to: Recovery Room Condition: Good
[2023-10-19] MEDS: HYDRALAZINE HCL 20 MG/ML VIAL ONE (13:48)
--- NOTE | 2023-10-19 13:57 | RAD REPORT ---
EXAM DESCRIPTION: RAD - Fluoroscopy <1 Hour - 10/19/2023 1:52 pm CLINICAL HISTORY: Venous catheter insertion. PORT A CATH PLACEMENT COMPARISON: <Comparisons> FINDINGS: Fluoroscopic imaging is submitted from placement of a venous catheter. Details of the pro cedure not available. Fluoroscopy time: 0.1 minutes
--- NOTE | 2023-10-19 14:03 | OP ---
Date of Procedure: 10/19/2023 Surgeon: Jefe Hardin MD, Preoperative Diagnosis: Need for chemotherapy-lung cancer. Postoperative Diagnosis: Need for chemotherapy-lung cancer. Procedure Performed: Placement of right internal jugular Port-A-Cath using ultrasound and fluoroscop ic guidance with interpretation. Anesthesia: General endotracheal plus local with 1% lidocaine. Estimated Blood Loss: Less than 5 cc. Specimen: None. Findings: Catheter at the confluence of the SVC, right atrium. Complications: None. Implants: Port-A-Cath. Disposition: The patient transferred to recovery room in good condition. Procedure In Detail: After informed consent was obtained, patient was brought into the operating arlette m, prepped and draped in the usual sterile fashion after adequate anesthesia was achieved. He was pl aced in steep Trendelenburg position. At this point, I used an ultrasound guidance to cannulate the right internal jugular vein without incident or complication. Micro wire was advanced, at this point . Fluoroscopic guidance confirmed confluence of the SVC of the wire, at this point, with good positi oning. At this point, I made a citlali incision overlying the insertion site and placed introducer hays th for the micro set, at this point, removed the micro wire. Wire out was called, at this point. I advanced a standard wire, at this point. Fluoroscopic guidance confirmed the position in the proper anatomic structures including the SVC complex, at this point. I then anesthetized the tract at the i nfraclavicular position of the chest wall using the 1% lidocaine, made an incision using a tunneling device provided in the catheter up to the insertion site. I then proceeded to place the introducer s dylan overlying using Seldinger technique under fluoroscopic guidance and removed the micro set, at t his point, and the inner cannula. I then advanced the catheter while the tubing was clamped at the d istal end ultimately placing it in the right atrium. I then used fluoroscopic guidance to back it up , up into the confluence of the superior vena cava. At this point, I then trimmed the catheter appro priately while leaving a locked clamp on it. I then placed a locking collar for the Port-A-Cath, at this point, and then attached the Port-A-Cath to subcutaneous port at this point and trimmed back louise e of the adipose tissue. However, this patient is quite thin and minimal dissection was required i rakesh electrocautery. At this point, the catheter was attached. Lock collar applied and the catheter f lushed quite easily with sterile saline. There was a lock with heparin super flush, at this point. I then proceeded to secure the catheter to the chest wall prepectoral fascia using interrupted 3-0 Pr olene sutures in interrupted fashion with good approximation of the port to the chest wall prepectora l fascia. At this point, all skin edges were then copiously irrigated. The neck incision was closed using an interrupted 3-0 nylon suture and a sterile dressing placed over top. I then turned my atte ntion to the subcutaneous port site which was also cleansed once again partially reapproximated using deep dermal 3-0 Vicryl suture in an interrupted fashion and the skin was closed with a 4-0 Monocryl in a running fashion. Dermabond was placed over top. The patient tolerated the procedure without in cident or complication, and transferred to PACU in good condition. All counts were correct at the en d of the case. ELEN/VALARIE Voice ID: [id number] Report ID: [id number]
--- NOTE | 2023-10-19 14:03 | RAD REPORT ---
EXAM DESCRIPTION: RAD - Chest Single View - 10/19/2023 1:51 pm CLINICAL HISTORY: S/P PORT A CATH INSERT Chest pain. COMPARISON: <Comparisons> FINDINGS: Portable technique limits examination quality. 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 The heart is normal in size. No displaced fractures.Ri ght port catheter tip in the SVC. No postprocedure pneumothorax. IMPRESSION: No postprocedure complication evident.
[2023-10-19 14:55] VITALS: BP 146/77; TEMP 97.7; O2SAT 97
== END 2023-10-19 14:54 | disposition home or self-care (01) ==
LOC: OR 09:51
PROVIDERS: ATTEND Surgery
PROC: 0JH60WZ Insertion of Totally Implantable Vascular Access Device into Chest Subcutaneous Tissue and Fascia, Open Approach (ICD-10-PCS; principal; 2023-10-19 12:00)
DX: C34.90 Malignant neoplasm of unspecified part of unspecified bronchus or lung (principal)
CPT/HCPCS: 36415; 71045; 76000; 80048; 85025; A4216; C1788; J0360; J0690; J1100; J1644; J2001; J2405; J2704; J3010; J7030

== ENCOUNTER 2023-12-19 10:42 | Emergency (ER) | payer OTHER ==
[2023-12-19 11:09] LABS: Absolute Lymphocytes (CBC) 0.2 K/uL (0.7-4.9); Absolute Neutrophil 6.5 K/uL (1.8-8.0); Basophils % 0.2 % (0-1.3); Eosinophils % 0.1 % (0-4.4); Hematocrit 26.5 % (39.6-49.0); Lymphocytes % 3.7 % (15.3-44.8); MCH 34.1 pg (27.0-35.0); MCHC 33.9 g/dL (32.0-36.0); MCV 100.5 fL (80-100); MPV 7.9 fL (7.6-11.3); Monocytes % 0.4 % (3.3-12.3); Neutrophils % 95.6 % (41.7-73.7); Platelets 234 thou/uL (152-406); RBC Red Blood Cell Count 2.63 M/uL (4.33-5.43); Red Cell Distribution Width 16.9 % (12.1-15.2)
[2023-12-19 11:26] LABS: Anion Gap 10.8 mEq/L (5.0-15.0); Magnesium 1.8 mg/dL (1.6-2.4); Potassium 3.8 mEq/L (3.5-5.1)
[2023-12-19] MEDS ORDERED: NA CHLORIDE 0.9% 1,000 ML ONE (11:36)
[2023-12-19 11:42] LABS: Blood Morphology Comment NOT SEEN (NOT SEEN); Platelet Estimate ADEQ; White Blood Cell Scan OK (OK)
--- NOTE | 2023-12-19 12:12 | RAD REPORT ---
EXAMINATION: CT HEAD WITHOUT CONTRAST CT CERVICAL SPINE WITHOUT CONTRAST CLINICAL INDICATION: Male, 83 years old. TRAUMA TECHNIQUE: Axial CT images from the skull base to the vertex without intravenous contrast. Axial CT i mages through the cervical spine were obtained without intravenous contrast. Sagittal and coronal reformatted images were created from the data set. Coronal and sagittal reformatted images were creat ed from the data set. One or more of the following dose reduction techniques were used: Automated exposure control, adjustment of the mA and/or kV according to patient size, and/or iterative reconstr uction. Unless otherwise specified, incidental findings do not require dedicated imaging follow-up. [id number]. COMPARISON: Head CT 08/02/2022 FINDINGS: Head: INTRACRANIAL: No acute intracranial hemorrhage. No hydrocephalus. No mass effect or midline shift. No significant white matter disease. Cerebral atrophy. VASCULATURE: No visualized abnormalities in the arteries or dural venous sinuses. SCALP/SKULL: No significant soft tissue or osseous abnormalities. SINUSES: The visualized paranasal sinuses and mastoid air cells are predominantly clear. Cervical spine: ALIGNMENT: The cervical spine has normal alignment without scoliosis or spondylolisthesis. BONE: Vertebral body heights are maintained. No aggressive osseous lesions. DEGENERATIVE CHANGES: Multilevel cervical spondylosis with varying degrees of neural foraminal narrow ing. No high-grade central spinal stenosis identified. SOFT TISSUE: No significant abnormalities in the soft tissue of the neck. The visualized lung apices are clear. IMPRESSION: No acute intracranial abnormality. No acute fracture or traumatic malalignment of the cervical spine.
--- NOTE | 2023-12-19 12:20 | RAD REPORT ---
EXAM: CT CHEST, ABDOMEN AND PELVIS WITHOUT CONTRAST CLINICAL INDICATION: Male, 83 years old TOMAS TECHNIQUE: CT chest, abdomen and pelvis was performed, without IV contrast, as per department protoco l. Axial, sagittal and coronal reconstructions were obtained. One or more of the following dose reduction techniques were used: Automated exposure control, adjustment of the mA and/or kV according to the patient size, and/or iterative reconstruction. Unless otherwise specified, incidental findings do not require dedicated imaging follow-up. [id number]. COMPARISON: Chest CT 06/21/2023, CT abdomen/pelvis 03/04/2023 FINDINGS: The lack of intravenous contrast limits the sensitivity of this exam for evaluation of solid visceral organs, vascular structures, and retroperitoneum. Chest: LOWER NECK/CHEST WALL: Visualized thyroid gland and soft tissues are normal. Right upper chest wall P ort-A-Cath LUNGS AND AIRWAYS: Emphysema. PLEURA: No pleural effusion. No pneumothorax. Hemidiaphragms are normally positioned. MEDIASTINUM AND LYMPH NODES: Calcified right hilar lesion has decreased in size since 06/21/2023. This may reflect treatment-related changes. THORACIC AORTA: Normal caliber and configuration. PULMONARY ARTERIES: Normal caliber. HEART: Coronary artery calcifications are present. Abdomen/Pelvis LIVER: Subcentimeter low-density lesion in the hepatic dome is likely benign and unchanged. GALLBLADDER/BILE DUCTS: No biliary ductal dilatation. PANCREAS: No mass, ductal dilation, or yenny-pancreatic fluid. SPLEEN: Normal size. No focal lesion. ADRENALS: Normal; no mass. KIDNEYS AND URETERS: Nonobstructive left nephrolithiasis. Left upper pole renal lesion which is likel y a cyst. GASTROINTESTINAL TRACT: Stomach is non-dilated. Small bowel has normal course and caliber. No colonic wall thickening or pericolonic inflammatory changes. Moderate rectal stool. PERITONEUM: No free fluid. LYMPH NODES: No lymphadenopathy. ABDOMINAL AORTA AND OTHER VESSELS: Normal caliber aorta and IVC.Atherosclerosis. URINARY BLADDER: Normal contour. REPRODUCTIVE ORGANS: No pathologic process. MUSCULOSKELETAL: Coccygeal fracture present with mild anterior displacement. Acute left intertrochant ken hip fracture which is mildly displaced and comminuted. ADDITIONAL FINDINGS: None IMPRESSION: 1. Mildly displaced and comminuted left intertrochanteric hip fracture. Mild displaced coccygeal frac ture. 2. Moderate rectal stool.
--- NOTE | 2023-12-19 13:21 | EDPHYS ---
Physician Documentation [facility] Name: Frank Manzanares Jr Age: 83 yrs Sex: Male : 1940 Arrival Date: 12/19/2023 Time: 10:42 Bed 6 Private MD: ED Physician Loly Carreon HPI: 12/18 11:09 This 83 yrs old Male presents to ER via EMS with complaints of Fall. jr8 11:09 Details of fall: The patient fell from an upright position, while standing. Onset: The jr8 symptoms/episode began/occurred acutely, 2 day(s) ago. Associated injuries: The patient sustained neck injury, pain with movement, back and pelvis. Severity of symptoms: At their worst the symptoms were moderate, in the emergency department the symptoms are unchanged. The patient has not experienced similar symptoms in the past. The patient has not recently seen a physician. This is an 83-year-old male patient that presents to the emergency room via EMS after son found him on the ground. Patient alert and oriented x 4, stated that he had lost his balance 2 days ago falling. Denies loss of consciousness but landed on his right side and back. Stated that he could not get up off of the floor and has been down there for the last 2 days. Currently undergoing treatment for lung cancer including chemotherapy and radiation. Stated that he generally has weakness because of that which caused him not to be able to get up off of the floor. Currently complains of bilateral shoulder pain, neck pain with motion, hip pain bilaterally. EMS stated that he has pressure wound on the right hip and right upper back from being on the floor for the last 2 days. Patient denies any other complaints at this time.. Historical: - Allergies: 10:44 No Known Allergies; ll1 - PMHx: 10:44 GERD; Hypertension; bladder tumor; ll1 - Immunization history:: Adult Immunizations up to date. - Infectious Disease History:: Denies. - Social history:: Smoking status: unknown. ROS: 11:09 Eyes: Negative for injury, pain, redness, and discharge, ENT: Negative for injury, jr8 pain, and discharge, 11:09 Cardiovascular: Negative for chest pain, palpitations, and edema, Respiratory: Negative for shortness of breath, cough, wheezing, and pleuritic chest pain, Abdomen/GI: Negative for abdominal pain, nausea, vomiting, diarrhea, and constipation, 11:09 Neuro: Negative for headache, weakness, numbness, tingling, and seizure, : Neck: Positive for pain with movement, : Back: Positive for pain at rest, pain with movement, : MS/extremity: Positive for pain, of the pelvis, 11: Skin: Positive for avulsion, ecchymosis, erythema, of the Right hip and right upper back, Exam: 11: Constitutional: This is a well developed, well nourished patient who is awake, alert, jr8 and in no acute distress. Head/Face: Normocephalic, atraumatic. Eyes: Pupils equal round and reactive to light, extra-ocular motions intact. Lids and lashes normal. Conjunctiva and sclera are non-icteric and not injected. Cornea within normal limits. Periorbital areas with no swelling, redness, or edema. ENT: Nares patent. No nasal discharge, no septal abnormalities noted. Tympanic membranes are normal and external auditory canals are clear. Oropharynx with no redness, swelling, or masses, exudates, or evidence of obstruction, uvula midline. Mucous membranes moist. Neck: Trachea midline, no thyromegaly or masses palpated, and no cervical lymphadenopathy. Supple, full range of motion without nuchal rigidity, or vertebral point tenderness. No Meningismus. Chest/axilla: Normal chest wall appearance and motion. Nontender with no deformity. No lesions are appreciated. Cardiovascular: Regular rate and rhythm with a normal S1 and S2. No gallops, murmurs, or rubs. Normal PMI, no JVD. No pulse deficits. Respiratory: Lungs have equal breath sounds bilaterally, clear to auscultation and percussion. No rales, rhonchi or wheezes noted. No increased work of breathing, no retractions or nasal flaring. Abdomen/GI: Soft, non-tender, with normal bowel sounds. No distension or tympany. No guarding or rebound. No evidence of tenderness throughout. 11:09 Neuro: Awake and alert, GCS 15, oriented to person, place, time, and situation. Cranial nerves II-XII grossly intact. Motor strength 5/5 in all extremities. Sensory grossly intact. Cerebellar exam normal. Normal gait. 11:09 Back: pain, that is mild, of the right scapular area, Mild skin avulsion with erythema and mild bruising noted approximately 5 cm in length, ROM is painful, with all movement, normal spinal alignment noted, CVA tenderness, is absent, vertebral tenderness, is not appreciated, 11:09 Musculoskeletal/extremity: Extremities: grossly normal except: noted in the Bilateral hips: pain, tenderness, Right hip with bruising and mild erythema to the iliac crest consistent with pressure wound, ROM: intact in all extremities, Circulation is intact in all extremities. Sensation intact. 13:54 ECG was reviewed by the Attending Physician. jr8 Vital Signs: 10:46 BP 125 / 79; Pulse 70; Resp 17; Temp 98; Pulse Ox 95% ; rs5 11:01 BP 128 / 71; Pulse 74; Resp 17; Pulse Ox 99% ; rs5 13:09 BP 115 / 74; Pulse 70; Resp 17; Pulse Ox 97% on R/A; rs5 14:00 BP 117 / 77; Pulse 77; Resp 17; Pulse Ox 97% on R/A; rs5 MDM: 10:46 Medical Screening Exam initiated jr8 12:39 Differential diagnosis: abrasion, closed head injury, contusion, fracture, multiple jr8 trauma. Data reviewed: vital signs, nurses notes, lab test result(s), radiologic studies, CT scan. Consideration of Admission/Observation Escalation of care including admission/observation considered. Dr. Quispe called about hip fracture. Fracture table is down for next week. Will transfer to other facility at this point. . Counseling: I had a detailed discussion with the patient and/or guardian regarding the historical points, exam findings, and any diagnostic results supporting the discharge/admit diagnosis, lab results, radiology results, the need to transfer to another facility, Fracture table down. 12:55 ED course: Spoke with Wilbur Acosta MD orthopedics who accepted patient. . jr8 12/18 10:47 Order name: Basic Metabolic Panel; Complete Time: 12:14 jr8 12/18 10:47 Order name: CBC with Diff; Complete Time: 12:14 jr8 12/18 10:47 Order name: Magnesium; Complete Time: 12:14 jr8 12/18 10:47 Order name: CK; Complete Time: 12:14 jr8 12/18 11:12 Order name: CBC Smear Scan; Complete Time: 12:14 EDMS 12/18 10:52 Order name: Head C Spine Mpr Wo Con; Complete Time: 12:14 EDCA 12/18 10:57 Order name: Chest Abd Pelvis Wo Con; Complete Time: 12:29 EDCA 12/18 12:54 Order name: Hip Left 2 View XRAY; Complete Time: 13:53 jr8 12/18 12:54 Order name: Pelvis XRAY; Complete Time: 13:53 8 12/18 10:47 Order name: Cardiac monitoring; Complete Time: 11:34 jr8 12/18 10:47 Order name: EKG - Nurse/Tech; Complete Time: 11:34 jr8 12/18 10:47 Order name: IV Saline Lock; Complete Time: 11:34 jr8 12/18 10:47 Order name: Labs collected and sent; Complete Time: 11:34 jr8 12/18 10:47 Order name: O2 Per Protocol; Complete Time: 11:34 8 12/18 10:47 Order name: O2 Sat Monitoring; Complete Time: 11:34 jr8 EC:54 Rate is 100 beats/min. Rhythm is regular, Normal Sinus Rhythm. QRS Bearden is Normal. RI jr8 interval is normal at 156 msec. QRS interval is normal at 78 msec. QT interval is normal at 469 msec. No Q waves. T waves are Normal. No ST changes noted. Clinical impression: Normal ECG. Interpreted by me. Reviewed by me. Administered Medications: 11:53 Drug: NS 0.9% IV 1000 ml IV at 1 bolus Per protocol; to be given as a bolus over 60 rs5 minutes Route: IV; Rate: 1 bolus; Site: left forearm; 13:01 Follow up: Response: No adverse reaction; IV Status: Completed infusion; IV Intake: rs5 1000ml 14:00 Drug: fentaNYL (PF) IVP 50 mcg IVP once Route: IVP; Site: left forearm; rs5 14:00 Drug: Ondansetron IVP 4 mg IVP once; over 2 minutes Route: IVP; Site: left forearm; rs5 Disposition Summary: 12/19/23 13:21 Transfer Ordered Notes: Transfer Location: [facility] jr8 Reason: Higher level of care jr8 Condition: Stable jr8 Problem: new jr8 Symptoms: are unchanged jr8 Accepting Physician: Dr. Camacho(12/19/23 14:12) rs5 Diagnosis - Intertrochanteric fracture of femur jr8 - Dehydration jr8 Forms: - Medication Reconciliation Form jr8 - SBAR form jr8 Signatures: Dispatcher [employer] EDMS Aureliano Her PA PA jr8 Loyda Mix, RN RN ll1 Cruz Edwards RN RN rs5 Corrections: (The following items were deleted from the chart) 10:48 10:48 Head C Spine Cap Wo Con+CT.RAD.BRZ ordered. EDMS EDMS 14:12 13:21 Dr. Camacho jr8 rs5
--- NOTE | 2023-12-19 13:21 | ER ---
Nurse's Notes [facility] Name: Frank Manzanares Jr Age: 83 yrs Sex: Male : 1940 Arrival Date: 12/19/2023 Time: 10:42 Bed 6 Private MD: Diagnosis: Intertrochanteric fracture of femur;Dehydration Presentation: 12/18 10:46 Method Of Arrival: EMS ll1 10:46 Acuity: HEATHER 3 ll1 10:46 Chief complaint: EMS states: Home health nurse toned out EMS for a fall that happened rs5 Wednesday. Pt has been laying on the floor x2 days. Denies LOC, not on blood thinners, complains of pain to hip, back, and left shoulder. Coronavirus screen: At this time, the client does not indicate any symptoms associated with coronavirus-19. Ebola Screen: No symptoms or risks identified at this time. Initial Sepsis Screen: Does the patient meet any 2 criteria? No. Patient's initial sepsis screen is negative. Does the patient have a suspected source of infection? No. Patient's initial sepsis screen is negative. 10:46 Method Of Arrival: EMS: [facility] rs5 10:46 Risk Assessment: Do you want to hurt yourself or someone else? Patient reports no rs5 desire to harm self or others. 10:53 Onset of symptoms was December 17, 2023. rs5 Triage Assessment: 10:46 General: Appears in no apparent distress. uncomfortable, Behavior is calm, cooperative. rs5 Pain: Complains of pain in left hip. Historical: - Allergies: 10:44 No Known Allergies; ll1 - PMHx: 10:44 GERD; Hypertension; bladder tumor; ll1 - Immunization history:: Adult Immunizations up to date. - Infectious Disease History:: Denies. - Social history:: Smoking status: unknown. Screenin:45 [facility] ED Fall Risk Assessment (Adult) History of falling in the last 3 months, rs5 including since admission Yes- single mechanical fall (1 pt) Confusion or Disorientation No (0 pts) Intoxicated or Sedated No (0 pts) Impaired Gait Yes (1 pt) Mobility Assist Device Used Yes (1 pt) Altered Elimination No (0 pt) Score/Fall Risk Level 3 or more points = High Risk Oriented to surroundings, Maintained a safe environment. Abuse screen: Denies threats or abuse. Nutritional screening: No deficits noted. Tuberculosis screening: No symptoms or risk factors identified. Assessment: 10:45 General: Appears in no apparent distress. uncomfortable, Behavior is calm, cooperative. rs5 Pain: Complains of pain in left hip left shoulder and back Pain currently is 3 out of 10 on a pain scale. Quality of pain is described as aching, Is continuous. Neuro: Level of Consciousness is awake, alert, obeys commands, Oriented to person, place, time, situation. Cardiovascular: Patient's skin is warm and dry. Respiratory: Airway is patent Respiratory effort is even, unlabored, Respiratory pattern is regular, symmetrical. GI: Abdomen is round non-distended, Abd is soft and non tender X 4 quads. : No signs and/or symptoms were reported regarding the genitourinary system. EENT: No signs and/or symptoms were reported regarding the EENT system. Derm: Skin is intact, Skin is pink, warm \T\ dry. Musculoskeletal: Capillary refill < 3 seconds, is brisk, in bilateral fingers. toes. 11:54 Reassessment: Patient and/or family updated on plan of care and expected duration. Pain rs5 level reassessed. Patient is alert, oriented x 3, equal unlabored respirations, skin warm/dry/pink. 13:01 Reassessment: Patient and/or family updated on plan of care and expected duration. Pain rs5 level reassessed. Patient is alert, oriented x 3, equal unlabored respirations, skin warm/dry/pink. 14:08 Reassessment: Patient and/or family updated on plan of care and expected duration. Pain rs5 level reassessed. Patient is alert, oriented x 3, equal unlabored respirations, skin warm/dry/pink. Vital Signs: 10:46 BP 125 / 79; Pulse 70; Resp 17; Temp 98; Pulse Ox 95% ; rs5 11:01 BP 128 / 71; Pulse 74; Resp 17; Pulse Ox 99% ; rs5 13:09 BP 115 / 74; Pulse 70; Resp 17; Pulse Ox 97% on R/A; rs5 14:00 BP 117 / 77; Pulse 77; Resp 17; Pulse Ox 97% on R/A; rs5 ED Course: 10:44 Patient arrived in ED. ll1 10:45 Patient has correct armband on for positive identification. Placed in gown. Bed in low rs5 position. Call light in reach. Side rails up X2. 10:45 No provider procedures requiring assistance completed. Inserted saline lock: 20 gauge rs5 in left forearm, using aseptic technique. 10:46 Aureliano Her PA is PHCP. jr8 10:46 Loly Carreon MD is Attending Physician. jr8 10:46 Cruz Edwards, TIKA is Primary Nurse. rs5 10:46 Triage completed. ll1 10:46 Arm band placed on Patient placed in an exam room, on a stretcher. ll1 11:49 Head C Spine Mpr Wo Con In Process Unspecified. EDMS 11:52 Chest Abd Pelvis Wo Con In Process Unspecified. EDMS 12:43 initiated a transfer with Shar from the [facility] Transfer center. eb 12:[address] Wilbur Santamaria the orthopedic nuclear fuels reclamation engineer for [facility] with Aureliano Lind for patient transfer consultation. 13:30 administrative approval given by Shar Dukes Rn/ patient has been accepted to [facility] room 1846/ Dr. Soni Camacho has accepted the patient in transfer/ report to be called to [phone]. 13:44 Hip Left 2 View XRAY In Process Unspecified. EDMS 13:44 Pelvis XRAY In Process Unspecified. EDMS 14:00 Patient transferred, IV remains in place. rs5 Administered Medications: 11:53 Drug: NS 0.9% IV 1000 ml IV at 1 bolus Per protocol; to be given as a bolus over 60 rs5 minutes Route: IV; Rate: 1 bolus; Site: left forearm; 13:01 Follow up: Response: No adverse reaction; IV Status: Completed infusion; IV Intake: rs5 1000ml 14:00 Drug: fentaNYL (PF) IVP 50 mcg IVP once Route: IVP; Site: left forearm; rs5 14:00 Drug: Ondansetron IVP 4 mg IVP once; over 2 minutes Route: IVP; Site: left forearm; rs5 Medication: 14:00 VIS not applicable for this client. rs5 Intake: 13:01 IV: 1000ml; Total: 1000ml. rs5 Outcome: 13:21 ER care complete, transfer ordered by MD. jr8 14:00 Transferred by ground EMS to [facility], [facility], Transfer form completed. rs5 14:00 Condition: stable 14:00 Instructed on the need for transfer, Demonstrated understanding of instructions, 14:12 Patient left the ED. rs5 Signatures: Dispatcher [employer] EDMS Aureliano Her PA PA jr8 Janelle Quiroz Lynsay, RN RN 1 Cruz Edwards RN RN rs5 Corrections: (The following items were deleted from the chart) 10:53 10:46 Coronavirus screen: Client denies travel out of the [place] in the last 14 days. At rs5 this time, the client does not indicate any symptoms associated with coronavirus-19. [facility] 10:53 10:46 Ebola Screen: Patient denies travel to an Ebola-affected area in the 21 days rs5 before illness onset. [facility] 10:53 10:46 Initial Sepsis Screen: Does the patient meet any 2 criteria? No. Patient's rs5 initial sepsis screen is negative. Does the patient have a suspected source of infection? No. Patient's initial sepsis screen is negative. [facility] 10:53 10:46 Risk Assessment: Do you want to hurt yourself or someone else? Patient reports no rs5 desire to harm self or others. 1
--- NOTE | 2023-12-19 13:52 | RAD REPORT ---
EXAMINATION: Hip Left 2 View CLINICAL INDICATION: Male, 83 years old. hip fracture COMPARISON: Same day CT FINDINGS: Left-sided intertrochanteric hip fracture which is mildly displaced. No dislocation. No significant focal degenerative change. Other: Peripheral vascular calcifications. IMPRESSION: Left intertrochanteric hip fracture.
--- NOTE | 2023-12-19 13:53 | RAD REPORT ---
EXAMINATION: XR PELVIS CLINICAL INDICATION: Male, 83 years old. hip fracture TECHNIQUE: Frontal view of the pelvis [id number]. COMPARISON: Same day CT FINDINGS: Left intertrochanteric hip fracture. No dislocation. No other pelvic fractures identified. IMPRESSION: Left intertrochanteric hip fracture. Reference same day CT for better visualization of the coccygeal fracture.
[2023-12-19] MEDS ORDERED: FENTANYL CITR 100 MCG/2 ML ONE (14:05)
[2023-12-19] MEDS ORDERED: ONDANSETRON 4 MG/2 ML VIAL ONE (14:05)
[2023-12-19 14:35] VITALS: BP 125/79; TEMP 98; O2SAT 95
--- NOTE | 2023-12-21 12:24 | EKG ---
Test Date: 2023-12-19 Test Time: 12:12:28 Product Finisher: SJ MEASUREMENT RESULTS: Intervals: Rate: 100 WY: 156 QRSD: 78 QT: 364 QTc: 469 [place]: P: 87 WY: 156 QRS: 64 T: 72 INTERPRETIVE STATEMENTS: Sinus rhythm with premature atrial complexes Otherwise normal ECG Compared to ECG 06/17/2023 11:46:43 Atrial premature complex(es) now present Sinus bradycardia no longer present Myocardial infarct finding no longer present Electronically Signed On 12-21-23 12:18:24 BLADDER CLEANER by Mo Paez
== END 2023-12-19 14:12 | disposition short-term general hospital (02) ==
LOC: ER 10:42
DX: S72.142A Displaced intertrochanteric fracture of left femur, initial encounter for closed fracture (principal); E86.0 Dehydration; M54.2 Cervicalgia; W18.30XA Fall on same level, unspecified, initial encounter; I10 Essential (primary) hypertension
CPT/HCPCS: 96361; 93005; 85025; 80048; 36415; 83735; 82550; 70450; 71250; 72125; 74176; 72170; 73502; 96375; 96374; 99285; J3010; J2405; J7030

== ENCOUNTER 2024-02-25 19:17 | Inpatient (IN) | payer OTHER ==
[2024-02-25 20:16] LABS: PT Prothrombin Time 11.3 SECONDS (9.4-12.5); Protime INR 1.01
[2024-02-25 20:18] LABS: Absolute Lymphocytes (CBC) 0.2 K/uL (0.7-4.9); Absolute Neutrophil 0.1 K/uL (1.8-8.0); Basophils % 1.7 % (0-1.3); Eosinophils % 1.9 % (0-4.4); Hematocrit 26.4 % (39.6-49.0); Hemoglobin 8.9 g/dL (13.6-17.9); Lymphocytes % 59.6 % (15.3-44.8); MCH 33.2 pg (27.0-35.0); MCHC 33.8 g/dL (32.0-36.0); MCV 98.2 fL (80-100); MPV 8.8 fL (7.6-11.3); Monocytes % 12.7 % (3.3-12.3); Neutrophils % 24.1 % (41.7-73.7); Nucleated Red Blood Cells % 0.5 % (0-0); Platelets 58 thou/uL (152-406); RBC Red Blood Cell Count 2.69 M/uL (4.33-5.43); Red Cell Distribution Width 15.5 % (12.1-15.2)
[2024-02-25] MEDS ORDERED: METHYLPREDNISOLONE 125 MG INJ ONE (20:19)
[2024-02-25] MEDS ORDERED: IPRATROPIUM BROM 0.5MG/2.5ML ONE (20:19)
[2024-02-25] MEDS ORDERED: LEVALBUTEROL 1.25 MG/3 ML NEB ONE (20:19)
--- NOTE | 2024-02-25 20:23 | RAD REPORT ---
EXAMINATION: ONE VIEW CHEST XR CLINICAL INDICATION: Male, 83 years old.,Cough;Dyspnea TECHNIQUE: Frontal chest projection is submitted. Examination is limited by patient positioning and t echnique. COMPARISON: 10/19/2023 FINDINGS: Right chest wall port unchanged in position. The lungs are diffusely emphysematous, with mild mid to lower right lung patchy opacities. No pneumothorax or sizable effusion. The heart is normal in size. Mediastinal contours are unremarkable. IMPRESSION: Subtle right mid to lower lung patchy opacities, may reflect COPD exacerbation.
[2024-02-25 20:31] LABS: Albumin 2.7 g/dL (3.4-5.0); Albumin/Globulin Ratio 0.6 (1.1-1.8); Anion Gap 9.2 mEq/L (5.0-15.0); Bilirubin Total 0.5 mg/dL (0.2-1.0); Globulin 4.2 g/dL (2.3-3.5); Potassium 3.2 mEq/L (3.5-5.1); Protein, Total 6.9 g/dL (6.4-8.2)
--- NOTE | 2024-02-25 20:41 | EDPHYS ---
Physician Documentation [facility] Name: Frank Manzanares Jr Age: 83 yrs Sex: Male : 1940 Arrival Date: 02/25/2024 Time: 19:17 Bed 15 Private MD: ED Physician Jose Randall HPI: 02/24 19:30 This 83 yrs old Male presents to ER via Unassigned with complaints of Breathing kb Difficulty. 19:30 Pt is an 83 year old male who presents for shortness of breath that started 4 days ago. kb Son states pt was diagnosed with the flu on Wednesday, woke up on Wednesday complaining that he couldn't breath. Pt had an oxygen tank that had a little oxygen left so he used that over the week. States he came in today because he couldn't eat without losing his breath, even with oxygen on. 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 Historical: - Allergies: 19:40 No Known Allergies; tm6 - PMHx: 19:40 GERD; Hypertension; bladder tumor; lung cancer (bladder tumor); tm6 - PSHx: 19:40 left hip (bladder tumor); tm6 - Immunization history:: Flu vaccine is not up to date. - Infectious Disease History:: Denies. - Social history:: Smoking status: Patient reports the use of cigarette tobacco products, smokes one pack cigarettes per day. ROS: 19:56 Constitutional: As per HPI kb Exam: 19:56 Constitutional: This is a well developed, well nourished patient who is awake, alert, kb and in no acute distress. Head/Face: Normocephalic, atraumatic. ENT: Moist Mucous membranes Cardiovascular: Regular rate Skin: Warm, dry with normal turgor. Normal color. MS/ Extremity: Pulses equal, no cyanosis. Neurovascular intact. Full, normal range of motion. Neuro: Awake and alert, GCS 15, oriented to person, place, time, and situation. 19:56 ECG was reviewed by the Attending Physician. 19:57 Respiratory: the patient does not display signs of respiratory distress, Respirations: kb labored breathing, that is mild, Breath sounds: wheezing: expiratory that is mild, is heard diffusely, Vital Signs: 19:25 Resp 25; Pulse Ox 86% on R/A; Weight 59.87 kg; Height 5 ft. 6 in. ; Pain 0/10; tm6 19:26 Pulse Ox 96% on 2 lpm NC; tm6 19:30 BP 169 / 103; Pulse 95; MAP 123 mmHg; tm6 20:35 BP 176 / 100; Pulse 79; Resp 20; Pulse Ox 100% on R/A; kj2 21:30 BP 134 / 116; Pulse 89; Resp 20; Pulse Ox 96% on 2 lpm NC; kj2 22:42 BP 156 / 88; Pulse 84; Resp 19; Pulse Ox 96% on 2 lpm NC; kj2 19:25 Body Mass Index 21.31 (59.87 kg, 167.64 cm) tm6 19:25 Pain Scale: Adult tm6 MDM: 19:24 Medical Screening Exam initiated kb 19:57 Data reviewed: vital signs, nurses notes. kb 20:39 Differential diagnosis: Bronchitis Chronic Obstructive Pulmonary Disease pneumonia, kb reactive airway disease. Consideration of Admission/Observation Patient was admitted/placed on observation. Escalation of care including admission/observation considered. Management of patient was discussed with the following: Hospitalist: Dr Weinstein accepts pt for admission. Historians other than the Patient: Daughter/Son: son. Counseling: I had a detailed discussion with the patient and/or guardian regarding the historical points, exam findings, and any diagnostic results supporting the discharge/admit diagnosis, lab results, radiology results, the need for further work-up and treatment in the hospital. 02/24 19:29 Order name: Blood Culture Adult (2) kb 02/24 19:29 Order name: CBC with Diff; Complete Time: 20:58 kb 02/24 19:29 Order name: CMP; Complete Time: 20:33 kb 02/24 19:29 Order name: Lactate w/ 2H reflex if indic.; Complete Time: 20:29 kb 02/24 19:29 Order name: Protime (+inr); Complete Time: 20:18 kb 02/24 19:29 Order name: Ptt, Activated; Complete Time: 20:18 kb 02/24 20:57 Order name: Manual Differential; Complete Time: 20:58 EDMS 02/24 21:36 Order name: CBC with Automated Diff EDMS 02/24 21:36 Order name: CBC with Automated Diff EDMS 02/24 21:36 Order name: Comprehensive Metabolic Panel [facility]UT 02/24 21:36 Order name: Comprehensive Metabolic Panel [facility] 02/24 21:40 Order name: Urinalysis w/ reflexes EDUT 02/24 19:29 Order name: Chest Single View XRAY; Complete Time: 20:29 kb 02/24 19:29 Order name: EKG; Complete Time: 19:30 kb 02/24 19:29 Order name: Cardiac monitoring; Complete Time: 19:44 kb 02/24 19:29 Order name: EKG - Nurse/Tech; Complete Time: 19:44 kb 02/24 19:29 Order name: IV Saline Lock - Large Bore; Complete Time: 20:04 kb 02/24 19:29 Order name: Labs collected and sent; Complete Time: 20:04 kb 02/24 19:29 Order name: O2 Per Protocol; Complete Time: 20:04 kb 02/24 19:29 Order name: O2 Sat Monitoring; Complete Time: 20:04 kb 02/24 19:29 Order name: Vital Signs; Complete Time: 20:04 kb EC:56 Rate is 87 beats/min. Rhythm is regular. QRS [place] is Normal. TN interval is normal at kb 158 msec. QRS interval is normal at 84 msec. QT interval is normal at 423 msec. Administered Medications: 20:31 Drug: Levalbuterol Inhalation 1.25 mg Inhalation once Route: Inhalation; kj2 20:54 Follow up: Response: No adverse reaction kj2 20:31 Drug: Ipratropium Inhalation Aerosol 0.5 mg Inhalation once Route: Inhalation; kj2 20:53 Follow up: Response: No adverse reaction kj2 20:31 Drug: MethylPrednisoLONE IVP 125 mg IVP once Route: IVP; Site: left antecubital; kj2 20:53 Follow up: Response: No adverse reaction kj2 20:53 Drug: Rocephin IV 1 grams IV at calculated rate once; Given slow IV push per pharmacy kj2 instructions Route: IV; Rate: calculated rate; Site: left antecubital; 21:50 Follow up: Response: No adverse reaction; IV Intake: 10ml kj2 20:53 Drug: Potassium Chloride PO 40 mEq PO once Route: PO; kj2 21:50 Follow up: Response: No adverse reaction kj2 21:09 Drug: Zithromax IVPB 500 mg IVPB once over 1 hrs; mix in 250 mL NS Route: IVPB; Infused kj2 Over: 1 hrs; Site: left antecubital; 22:09 Follow up: IV Status: Completed infusion; IV Intake: 250ml kj2 02/25 00:03 Follow up: IV Status: Completed infusion; IV Intake: 250ml kj2 Disposition: 02/24 20:19 I was immediately available on-site in the Emergency Department for consultation in the ms3 care of the patient. Disposition Summary: 02/25/24 20:40 Hospitalization Ordered Notes: Hospitalization Status: Inpatient Admission kb Provider: Abner Weinstein Location: Telemetry/MedSur (Inpatient) kb Condition: Stable kb Problem: new kb Symptoms: are unchanged kb Bed/Room Type: Standard Room Assignment: 403(02/25/24 22:48) vc1 Diagnosis - COPD/ Chronic obstructive pulmonary disease with (acute) exacerbation kb - Hypoxia kb Forms: - Medication Reconciliation Form kb - SBAR form kb - Leadership Thank You Letter kb Signatures: Dispatcher [employer] EDMS Vaishnavi Wheeler, ORE BUYER-C ORE BUYER-Joselyn Lee, RN RN Jose Gómez DO DO ms3 Naz Hopkins RN RN vc1 Keshia Ellis RN RN tm6 Adilia Johnson RN RN kj2 Corrections: (The following items were deleted from the chart) 22:25 20:40 kb kl 22:48 22:25 405 vc1
--- NOTE | 2024-02-25 20:41 | ER ---
Nurse's Notes [facility] Name: Frank Manzanares Jr Age: 83 yrs Sex: Male : 1940 Arrival Date: 02/25/2024 Time: 19:17 Bed 15 Private MD: Diagnosis: COPD/ Chronic obstructive pulmonary disease with (acute) exacerbation;Hypoxia Presentation: 02/24 19:26 Initial Sepsis Screen: Does the patient meet any 2 criteria? RR > 20 per min. Does the tm6 patient have a suspected source of infection? No. Patient's initial sepsis screen is negative. Risk Assessment: Do you want to hurt yourself or someone else? Patient reports no desire to harm self or others. Onset of symptoms was February 21, 2024. 19:26 Acuity: HEATHER 3 tm6 19:30 Chief complaint: Patient states: diagnosed with flu on Wednesday, been SOB ever since. tm6 Using home O2. Coronavirus screen: Client denies travel out of the [place] in the last 14 days. Ebola Screen: Patient negative for fever greater than or equal to 101.5 degrees Fahrenheit, and additional compatible Ebola Virus Disease symptoms Patient denies exposure to infectious person. Patient denies travel to an Ebola-affected area in the 21 days before illness onset. No symptoms or risks identified at this time. 19:30 Method Of Arrival: Wheelchair tm6 Triage Assessment: 19:40 General: Appears distressed, Behavior is cooperative. Pain: Denies pain. EENT: No signs tm6 and/or symptoms were reported regarding the EENT system. Neuro: Level of Consciousness is awake, alert, obeys commands, Oriented to person, place, time, situation. Cardiovascular: Patient's skin is warm and dry. Respiratory: Reports shortness of breath labored breathing Onset: The symptoms/episode began/occurred Wednesday, the patient has moderate shortness of breath. GI: No signs and/or symptoms were reported involving the gastrointestinal system. Abdomen is flat, non-distended. : No signs and/or symptoms were reported regarding the genitourinary system. Derm: No signs and/or symptoms reported regarding the dermatologic system. Musculoskeletal: No signs and/or symptoms reported regarding the musculoskeletal system. Historical: - Allergies: 19:40 No Known Allergies; tm6 - PMHx: 19:40 GERD; Hypertension; bladder tumor; lung cancer (bladder tumor); tm6 - PSHx: 19:40 left hip (bladder tumor); tm6 - Immunization history:: Flu vaccine is not up to date. - Infectious Disease History:: Denies. - Social history:: Smoking status: Patient reports the use of cigarette tobacco products, smokes one pack cigarettes per day. Screenin:45 [facility] ED Fall Risk Assessment (Adult) History of falling in the last 3 months, kj2 including since admission No falls in past 3 months (0 pts) Confusion or Disorientation No (0 pts) Intoxicated or Sedated No (0 pts) Impaired Gait No (0 pts) Mobility Assist Device Used No (0 pt) Altered Elimination No (0 pt) Score/Fall Risk Level 0 - 2 = Low Risk Maintained a safe environment, Hourly rounding (assess needs \T\ fall precautionary measures) done. Abuse screen: Denies threats or abuse. Denies injuries from another. Nutritional screening: No deficits noted. Tuberculosis screening: No symptoms or risk factors identified. Assessment: 19:45 General: Appears in no apparent distress. Behavior is calm, cooperative. Pain: Denies kj2 pain. Neuro: Level of Consciousness is awake, alert, obeys commands, Oriented to person, place, time, situation. Cardiovascular: Patient's skin is warm and dry. Respiratory: Airway is patent Respiratory effort is labored. GI: No signs and/or symptoms were reported involving the gastrointestinal system. : No signs and/or symptoms were reported regarding the genitourinary system. 19:45 Respiratory: Breath sounds with rhonchi bilaterally. in right upper lobe and left upper kj2 lobe. 20:34 Reassessment: Patient appears in no apparent distress at this time. Patient and/or kj2 family updated on plan of care and expected duration. Pain level reassessed. Patient is alert, oriented x 3, equal unlabored respirations, skin warm/dry/pink. 21:30 Reassessment: Patient appears in no apparent distress at this time. Patient and/or kj2 family updated on plan of care and expected duration. Pain level reassessed. Patient is alert, oriented x 3, equal unlabored respirations, skin warm/dry/pink. 22:43 Reassessment: Patient appears in no apparent distress at this time. Patient and/or kj2 family updated on plan of care and expected duration. Pain level reassessed. Patient is alert, oriented x 3, equal unlabored respirations, skin warm/dry/pink. 23:25 Cardiovascular: Rhythm is sinus rhythm. kj2 23:40 Reassessment: Patient appears in no apparent distress at this time. Patient and/or kj2 family updated on plan of care and expected duration. Pain level reassessed. Patient is alert, oriented x 3, equal unlabored respirations, skin warm/dry/pink. Vital Signs: 19:25 Resp 25; Pulse Ox 86% on R/A; Weight 59.87 kg; Height 5 ft. 6 in. ; Pain 0/10; tm6 19:26 Pulse Ox 96% on 2 lpm NC; tm6 19:30 BP 169 / 103; Pulse 95; MAP 123 mmHg; tm6 20:35 BP 176 / 100; Pulse 79; Resp 20; Pulse Ox 100% on R/A; kj2 21:30 BP 134 / 116; Pulse 89; Resp 20; Pulse Ox 96% on 2 lpm NC; kj2 22:42 BP 156 / 88; Pulse 84; Resp 19; Pulse Ox 96% on 2 lpm NC; kj2 19:25 Body Mass Index 21.31 (59.87 kg, 167.64 cm) tm6 19:25 Pain Scale: Adult tm6 ED Course: 19:18 Patient arrived in ED. jj6 19:24 Vaishnavi Wheeler FNP-C is PHCP. kb 19:24 Jose Randall DO is Attending Physician. kb 19:28 Adilia Johnson, TIKA is Primary Nurse. kj2 19:40 Triage completed. tm6 19:40 Arm band placed on right wrist. tm6 19:45 Patient has correct armband on for positive identification. Bed in low position. Call kj2 light in reach. Adult w/ patient. Provided Education on: call light. 19:48 Chest Single View XRAY In Process Unspecified. EDMS 20:04 Missed attempt(s): 20 gauge in right antecubital area. kj2 20:10 Inserted saline lock: 20 gauge in left antecubital area, using aseptic technique. Blood kj2 collected. Flushed with 10 mL NS. 20:40 Abner Weinstein MD is Hospitalizing Provider. kb 21:51 No provider procedures requiring assistance completed. kj2 02/25 00:02 Patient admitted, IV remains in place. kj2 Administered Medications: 02/24 20:31 Drug: Levalbuterol Inhalation 1.25 mg Inhalation once Route: Inhalation; kj2 20:54 Follow up: Response: No adverse reaction kj2 20:31 Drug: Ipratropium Inhalation Aerosol 0.5 mg Inhalation once Route: Inhalation; kj2 20:53 Follow up: Response: No adverse reaction kj2 20:31 Drug: MethylPrednisoLONE IVP 125 mg IVP once Route: IVP; Site: left antecubital; kj2 20:53 Follow up: Response: No adverse reaction kj2 20:53 Drug: Rocephin IV 1 grams IV at calculated rate once; Given slow IV push per pharmacy kj2 instructions Route: IV; Rate: calculated rate; Site: left antecubital; 21:50 Follow up: Response: No adverse reaction; IV Intake: 10ml kj2 20:53 Drug: Potassium Chloride PO 40 mEq PO once Route: PO; kj2 21:50 Follow up: Response: No adverse reaction kj2 21:09 Drug: Zithromax IVPB 500 mg IVPB once over 1 hrs; mix in 250 mL NS Route: IVPB; Infused kj2 Over: 1 hrs; Site: left antecubital; 22:09 Follow up: IV Status: Completed infusion; IV Intake: 250ml kj2 02/25 00:03 Follow up: IV Status: Completed infusion; IV Intake: 250ml kj2 Medication: 02/24 21:10 VIS not applicable for this client. kj2 Intake: 21:50 IV: 10ml; Total: 10ml. kj2 22:09 IV: 250ml; Total: 260ml. kj2 02/25 00:03 IV: 250ml; Total: 510ml. kj2 Outcome: 02/24 20:40 Decision to Hospitalize by Provider. kb 02/25 00:01 Admitted to Tele accompanied by tech, room 403, kj2 Condition: stable Instructed on the need for admit, 00:06 Patient left the ED. kj2 Signatures: Dispatcher [employer] EDMS Vaishnavi Wheeler FNP-C FNP-Nubia Alvarez jj6 Keshia Ellis RN RN tm6 Adilia Johnson RN RN kj2
[2024-02-25] MEDS ORDERED: AZITHROMYCIN 500 MG INJ IVPB ONE (20:45)
[2024-02-25] MEDS ORDERED: CEFTRIAXONE 1000 MG/VIAL ONE (20:45)
[2024-02-25] MEDS ORDERED: POTASSIUM CL SA 10 MEQ TAB PO ONE (20:46)
[2024-02-25] MEDS ORDERED: NA CHLORIDE 0.9% 250 ML ONE (20:46)
[2024-02-25 20:56] LABS: Differential Total Cells Count 100; Lymphocytes 64 % (15-42); Monocytes 14 % (0-10); Platelet Estimate DECR; Segmented Neutrophils 22 % (40-80)
[2024-02-25 20:57] LABS: Blood Morphology Comment NOT SEEN (NOT SEEN); Platelets, Giant PRESENT
--- NOTE | 2024-02-25 21:26 | P.HP ---
Certification for Inpatient With expected LOS: >2 Midnights Practitioner: I am a practitioner with admitting privileges, knowledge of patient current condition, hospital course, and medical plan of care. Services: Services provided to patient in accordance with Admission requirements found in Title 42 Section 412.3 of the Code of Federal Regulations Patient History Date of Service: 02/25/24 Reason for admission: COPD exacerbation History of Present Illness: Patient is 83 years of age with a history of COPD active smoker recently completed therapy for lung cancer he had his chemotherapy radiation therapy last week has been sick for the past week increasing dyspnea requiring more oxygen since Wednesday uses his inhaler does not have a nebulizer at home felt weak ended up here in the hospital Allergies No Known Allergies Allergy (Verified 10/15/23 14:25) Home Medications: Cholecalciferol (Vitamin D3) [Vitamin D3] 400 unit PO DAILY 01/09/20 Famotidine 40 mg PO BEDTIME 01/09/20 Cyanocobalamin (Vitamin B-12) [Vitamin B12] 1,000 mcg PO DAILY 06/17/23 Fluticasone/Vilanterol [Breo Ellipta 100-25 Mcg INH] 1 each IH DAILY 06/17/23 Thiamine HCl 100 mg PO DAILY 06/17/23 Vitamin B Complex [B Complex] 1 each PO DAILY 06/17/23 B6/Folic/B12/Coffee/Phosphatid [Neuriva Plus Brain Perform Cap] 1 tab PO DAILY 07/07/23 - Past Medical/Surgical History Diabetic: No -: Tobacco abuse -: GERD -: Hypertension -: COPD -: Lung cancer - Social History Smoking Status: Current every day smoker Alcohol use: Yes CD- Drugs: No Caffeine use: Yes Review of Systems 10-point ROS is otherwise unremarkable General: Weakness Respiratory: Cough, Shortness of Breath Physical Examination - Vital Signs Temperature: 98 F Blood Pressure: 169/103 Pulse: 95 Respirations: 20 Pulse Ox (%): 100 - Physical Exam General: Alert, Oriented x3 Neck: Supple Respiratory: Clear to auscultation bilaterally, Diminished Cardiovascular: No edema, Regular rate/rhythm, Normal S1 S2 Gastrointestinal: Normal bowel sounds, Soft and benign, Non-distended Musculoskeletal: No clubbing, No swelling Integumentary: No rashes, No breakdown - Studies Laboratory Data (last 24 hrs) 01/10/25 01/10/25 01/10/25 19:48 19:48 19:48 WBC 0.40 L* Hgb 8.9 L Hct 26.4 L Plt Count 58 L PT 11.3 INR 1.01 APTT 32.0 Sodium 138 Potassium 3.2 L BUN 25 H Creatinine 0.88 Glucose 114 H Total Bilirubin 0.5 AST 18 ALT 16 Alkaline Phosphatase 84 Assessment and Plan - Problems (Diagnosis) (1) COPD exacerbation Current Visit: Yes Status: Acute Plan: Patient is 83 years of age recent diagnosis of lung cancer finished his chemotherapy and radiation therapy admitted with worsening dyspnea for the past week recently contracted flu he is also pancytopenic neutropenic thrombocytopenic chest x-ray shows a right upper lobe lung mass his blood pressure is elevated did not take his blood pressure pills labs chest x-rays all reviewed admit treat with steroids breathing treatments patient is neutropenic reverse isolation patient uses Breo at home - Advance Directives Does patient have a Living Will: No Does patient have a Durable POA for Healthcare: No
[2024-02-25] MEDS ORDERED: ONDANSETRON 4 MG/2 ML VIAL IV PRN (21:30)
[2024-02-25] MEDS ORDERED: predniSONE 20 MG TAB PO SCH (21:30)
[2024-02-25] MEDS: AMLODIPINE 5 MG TAB PO SCH (21:35)
[2024-02-25] MEDS: D5 0.9 NS 1,000 ML IV SCH (22:00)
[2024-02-26 00:29] VITALS: BMI 21.3
[2024-02-26] MEDS: IPRATROPIUM BROM 0.5MG/2.5ML NEB SCH (01:07)
[2024-02-26] MEDS: HYDRALAZINE HCL 20 MG/ML VIAL IV PRN (05:33)
[2024-02-26] MEDS: predniSONE 20 MG TAB PO SCH (05:33)
[2024-02-26 06:58] LABS: Albumin 2.5 g/dL (3.4-5.0); Albumin/Globulin Ratio 0.6 (1.1-1.8); Anion Gap 10.8 mEq/L (5.0-15.0); Bilirubin Total 0.5 mg/dL (0.2-1.0); Globulin 4.4 g/dL (2.3-3.5); Potassium 3.8 mEq/L (3.5-5.1); Protein, Total 6.9 g/dL (6.4-8.2)
[2024-02-26 07:04] LABS: Hematocrit 26.2 % (39.6-49.0); Hemoglobin 8.9 g/dL (13.6-17.9); MCH 33.1 pg (27.0-35.0); MCV 97.4 fL (80-100); MPV 8.1 fL (7.6-11.3); Platelets 58 thou/uL (152-406); RBC Red Blood Cell Count 2.69 M/uL (4.33-5.43); Red Cell Distribution Width 15.7 % (12.1-15.2)
[2024-02-26] MEDS: ARFORMOTEROL TARTRATE 15 MCG/2 ML VIAL.NEB NEB SCH (07:59)
[2024-02-26] MEDS: POTASSIUM CL SA 10 MEQ TAB PO ONE (08:17)
[2024-02-26] MEDS: CEFTRIAXONE 1,000 MG in NA CHLORIDE 0.9% 50 ML IVPB SCH (08:28)
[2024-02-26 08:44] LABS: Band Neutrophils 4 % (0-1); Differential Total Cells Count 50; Lymphocytes 44 % (15-42); Segmented Neutrophils 24 % (40-80)
[2024-02-26 08:45] LABS: Atypical Lymphocytes 4 %; Blood Morphology Comment NOT SEEN (NOT SEEN); Monocytes 24 % (0-10); Platelet Estimate DECR; Platelets, Giant RARE
[2024-02-26] MEDS: TBO-FILGRASTIM 300 MCG/0.5 ML SYR SQ SCH (12:01)
[2024-02-26] MEDS: ALBUTEROL 2.5 MG/3 ML NEB SOL NEB PRN (21:46)
[2024-02-27 06:22] LABS: Absolute Lymphocytes (CBC) 0.2 K/uL (0.7-4.9); Absolute Monocytes 0.2 K/uL (0.1-1.3); Absolute Neutrophil 0.3 K/uL (1.8-8.0); Hematocrit 24.8 % (39.6-49.0); Hemoglobin 8.4 g/dL (13.6-17.9); Lymphocytes % 25.4 % (15.3-44.8); MCH 33.3 pg (27.0-35.0); MCHC 33.8 g/dL (32.0-36.0); MCV 98.4 fL (80-100); MPV 8.7 fL (7.6-11.3); Monocytes % 32.7 % (3.3-12.3); Neutrophils % 41.9 % (41.7-73.7); Nucleated Red Blood Cells % 0.2 % (0-0); Platelets 65 thou/uL (152-406); RBC Red Blood Cell Count 2.53 M/uL (4.33-5.43); Red Cell Distribution Width 15.6 % (12.1-15.2)
[2024-02-27 06:43] LABS: Albumin 2.4 g/dL (3.4-5.0); Albumin/Globulin Ratio 0.6 (1.1-1.8); Anion Gap 9.8 mEq/L (5.0-15.0); Bilirubin Total 0.3 mg/dL (0.2-1.0); Globulin 3.9 g/dL (2.3-3.5); Magnesium 1.7 mg/dL (1.6-2.4); Potassium 3.8 mEq/L (3.5-5.1); Protein, Total 6.3 g/dL (6.4-8.2)
[2024-02-27] MEDS ORDERED: ONDANSETRON 4 MG (ODT) TAB PO PRN (12:28)
[2024-02-27] MEDS: ACETAMINOPHEN 500 MG TAB PO ONE (13:36)
[2024-02-27] MEDS: dexAMETHasone 4 MG TAB PO SCH (20:55)
--- NOTE | 2024-02-28 01:04 | P.PN ---
Subjective Date of Service: 02/26/24 Patient clinically doing better. Patient still weak and short of breath. Continue with weaning down oxygen. Continue out of bed and ambulate. Review of Systems 10-point ROS is otherwise unremarkable Physical Examination - Vital Signs Temperature: 98.3 F Blood Pressure: 188/110 Pulse: 89 Respirations: 17 Pulse Ox (%): 96 - Physical Exam General: Alert, In no apparent distress, Oriented x3 Respiratory: Diminished, Expiratory wheezes Cardiovascular: Regular rate/rhythm, Normal S1 S2, No murmurs Gastrointestinal: Normal bowel sounds, Soft and benign, Non-distended, No tenderness, No rebound, No guarding Musculoskeletal: No clubbing, No swelling, No tenderness, Other (Muscular atrophy) Neurological: Sensation intact, Cranial nerves 3-12 intact, Other (Generalized weakness), Abnormal strength - Studies Microbiology Data (last 24 hrs): 02/25/24 19:55 Blood - Blood Anaerobic Blood Culture - Final Medications List Reviewed: Yes Assessment & Plan - Problems (Diagnosis) (1) Pancytopenia Current Visit: Yes Status: Acute (2) Hypoxemia Current Visit: Yes Status: Acute (3) COPD exacerbation Current Visit: Yes Status: Acute (4) Lung cancer Current Visit: Yes Status: Acute (5) BPH (benign prostatic hyperplasia) Current Visit: Yes Status: Acute - Plan Plan: 1. Patient with absolute neutrophil count less than 500 so will put on reverse isolation and prophylactic antibiotics. Continue with nebs and steroids. Plan to get a chest x-ray; Continue with physical therapy and will check an echocardiogram. Continue with Tamiflu along with steroids. Arrange for discharge planning. 2. Continue with physical therapy 3. Wean off of oxygen; will check a room air O2 sat. 4. PT evaluation; out of bed and ambulate Discharge Plan: Home Plan to discharge in: Greater than 2 days - Advance Directives Does patient have a Living Will: No Does patient have a Durable POA for Healthcare: No - Code Status/Comfort Care Code Status Assessed: Yes Code Status: Full Code Critical Care: No Time Spent Managing PTS Care (In Minutes): 35
--- NOTE | 2024-02-28 01:51 | P.PN ---
Date of Service: 02/27/24 Subjective Patient is clinically improving. Patient denies any complaints. Symptoms are much better.Plan to work with PT; further work-up with PT Physical Examination - Vital Signs reviewed - Physical Exam General: Alert, In no apparent distress, Oriented x3 Respiratory: End expiratory wheezing with diminished breath sounds bilaterally Cardiovascular: Regular rate/rhythm, Normal S1 S2, No murmurs Gastrointestinal: Normal bowel sounds, Soft and benign, Non-distended, No tenderness Musculoskeletal: No clubbing, No swelling, No tenderness; muscular atrophy Neurological: No focal deficits with generalized weakness Assessment & Plan - Problems (Diagnosis) (1) Pancytopenia; neutropenic precautions Current Visit: Yes Status: Acute (2) Hypoxemia Current Visit: Yes Status: Acute (3) COPD exacerbation Current Visit: Yes Status: Acute (4) Lung cancer Current Visit: No Status: Remission - Plan Continue with plan of care as mentioned below: 1. Patient with lung cancer status post chemotherapy. Patient should be in remission. Awaiting PET scan as an outpt Patient is currently neutropenic. Absolute neutrophil count improving. Continue with antibiotic therapy. Arranging for discharge planning once we have home oxygen arranged. Continue with nebs, steroids, and antibiotics. Plan to get an echocardiogram. Patient is supposed to work with physical therapy, and hopefully, patient's strength has improved. Arranging for discharge planning. Arrange for home oxygen, and plan to arrange for discharge home with home O2 and resume HH with PT. - Advance Directives Does patient have a Living Will: No Does patient have a Durable POA for Healthcare: No
--- NOTE | 2024-02-28 01:52 | P.PN ---
Date of Service: 02/28/24 Subjective Patient continues to improve. Patient was ambulating with physical therapy. Patient remained short of breath on exertion. We arranged for home oxygen. Plan is for it to be delivered in the morning. Will also place order for resumption of home health with jail and physical therapy. Overall, patient continues to improve. Physical Examination - Vital Signs reviewed - Physical Exam General: Alert, shortness of breath at rest, Oriented x3 Respiratory: End expiratory wheezing Cardiovascular: Regular rate/rhythm, Normal S1 S2, No murmurs Gastrointestinal: Normal bowel sounds, Soft and benign, Non-distended, No tenderness Musculoskeletal: No clubbing, No swelling, No tenderness; muscular atrophy Neurological: no focal deficits; Generalized weakness Assessment & Plan - Problems (Diagnosis) (1) Pancytopenia; neutropenic precautions Current Visit: Yes Status: Acute (2) Hypoxemia Current Visit: Yes Status: Acute (3) COPD exacerbation Current Visit: Yes Status: Acute (4) Lung cancer Current Visit: No Status: Remission - Plan Continue with plan of care as mentioned below: 1. Patient with lung cancer status post chemotherapy. Patient should be in remission. Patient is neutropenic. Absolute neutrophil count today was 1500. Continue with antibiotic therapy. Arranging for discharge planning once we have home oxygen arranged. Continue with nebs, steroids, and antibiotics. We will also get an echocardiogram. Patient is working with physical therapy, and patient's strength has improved. Arranging for discharge planning. Once home oxygen is arranged we should be able to discharge home. - Advance Directives Does patient have a Living Will: No Does patient have a Durable POA for Healthcare: No
[2024-02-28 06:31] LABS: Absolute Lymphocytes (CBC) 0.2 K/uL (0.7-4.9); Absolute Monocytes 0.4 K/uL (0.1-1.3); Absolute Neutrophil 1.2 K/uL (1.8-8.0); Basophils % 0.1 % (0-1.3); Hematocrit 27.5 % (39.6-49.0); Hemoglobin 9.4 g/dL (13.6-17.9); Lymphocytes % 12.1 % (15.3-44.8); MCH 33.7 pg (27.0-35.0); MCHC 34.2 g/dL (32.0-36.0); MCV 98.5 fL (80-100); MPV 8.6 fL (7.6-11.3); Monocytes % 21.2 % (3.3-12.3); Neutrophils % 66.6 % (41.7-73.7); Nucleated Red Blood Cells % 0.2 % (0-0); Platelets 76 thou/uL (152-406); RBC Red Blood Cell Count 2.79 M/uL (4.33-5.43); Red Cell Distribution Width 15.9 % (12.1-15.2)
[2024-02-28 06:52] LABS: AST/SGOT 14 U/L (15-37); Albumin 2.5 g/dL (3.4-5.0); Albumin/Globulin Ratio 0.6 (1.1-1.8); Alkaline Phosphatase 79 U/L (45-117); Anion Gap 8.4 mEq/L (5.0-15.0); BUN Blood Urea Nitrogen 29 mg/dL (7-18); Bicarbonate 26 mEq/L (21-32); Bilirubin Total 0.5 mg/dL (0.2-1.0); Globulin 4.1 g/dL (2.3-3.5); Glomerular Filtration Rate 87 ml/min (=/>90); Glucose Level 114 mg/dL (74-106); Magnesium 1.7 mg/dL (1.6-2.4); Potassium 4.4 mEq/L (3.5-5.1); Protein, Total 6.6 g/dL (6.4-8.2); Sodium Level 136 mEq/L (136-145)
[2024-02-28 06:58] LABS: ALT/SGPT < 14 U/L (16-61)
--- NOTE | 2024-02-28 07:24 | RAD REPORT ---
Procedure: Chest Single View HISTORY: Cough COMPARISON: February 25, 2024 FINDINGS: Minimal nodularity right lung unchanged The left lung appears clear of acute infiltrate. Lungs are hyperaerated. Central venous catheter in place. No significant pleural effusion noted. The heart is normal size. IMPRESSION: No significant change in minimal nodularity right lung
[2024-02-28] MEDS: PANTOPRAZOLE 40MG TABLET PO SCH (09:07)
[2024-02-28] MEDS: METOPROLOL XL 25 MG TAB PO SCH (09:07)
[2024-02-28] MEDS: THIAMINE HCL 100 MG TABLET PO SCH (09:07)
--- NOTE | 2024-02-28 10:50 | EKG ---
Test Date: 2024-02-25 Test Time: 19:39:05 Documentation Designer: AF MEASUREMENT RESULTS: Intervals: Rate: 87 ID: [id number] QRSD: 84 QT: 352 QTc: 423 [place]: P: 77 ID: [id number] QRS: 62 T: 78 INTERPRETIVE STATEMENTS: Normal sinus rhythm Septal infarct, age undetermined Abnormal ECG Compared to ECG 12/19/2023 12:12:28 Myocardial infarct finding now present Atrial premature complex(es) no longer present Electronically Signed On 02-28-24 10:49:41 YE[employer]ACKER by Mo Paez
[2024-02-28] MEDS: ENSURE COMPACT 118 ML LIQUID PO SCH (11:30)
[2024-02-28] MEDS: FUROSEMIDE 20 MG/ 2ML VIAL IV ONE (11:32)
[2024-02-28] MEDS: IBUPROFEN 100 MG/5 ML UCUP PO ONE (11:32)
[2024-02-28] MEDS: ACETAMINOPHEN 500 MG TAB PO ONE (11:32)
[2024-02-28] MEDS: FLUCONAZOLE 200mg IVPB 200 MG/100 ML BAG IV SCH (11:33)
[2024-02-28] MEDS: NYSTATIN 500,000 UNIT/5 ML UDC PO SCH (13:38)
[2024-02-28] MEDS: CEFDINIR 300 MG CAP PO SCH (17:33)
[2024-02-28] MEDS: MORPHINE 2 MG/ML SYR IV PRN (18:54)
--- NOTE | 2024-02-29 14:36 | ECHO ---
HEIGHT: 5 ft 6 in WEIGHT: 132 lb 0 oz DATE OF STUDY: 02/29/[address]: Jeannine Vang MD 2-DIMENSIONAL: YES M.MODE: YES DOPPLER: YES COLOR FLOW: YES TDS: NO PORTABLE: YES DEFINITY: NO BUBBLE STUDY: NO DIAGNOSIS: CONGESTIVE HEART FAILURE CARDIAC HISTORY: CATHERIZATION: NO SURGERY: NO PROSTHETIC VALVE: NO PACEMAKER: NO MEASUREMENTS (cm) DIASTOLIC (NORMALS) SYSTOLIC (NORMALS) IVSd 0.9 (0.6-1.2) LA Diam 2.7 (1.9-4.0) LVEF 71% LVIDd 3.9 (3.5-5.7) LVIDs 2.3 (2.0-3.5) %FS 39% LVPWd 1.0 (0.6-1.2) Ao Diam 2.9 (2.0-3.7) 2 DIMENSIONAL ASSESSMENT: RIGHT ATRIUM: NORMAL LEFT ATRIUM: NORMAL RIGHT VENTRICLE: NORMAL LEFT VENTRICLE: NORMAL TRICUSPID VALVE: TRACE OF TRICUSPID REGURGITATION MITRAL VALVE: NORMAL PULMONIC VALVE: NORMAL AORTIC VALVE: NORMAL PERICARDIAL EFFUSION: NONE AORTIC ROOT: NORMAL LEFT VENTRICULAR WALL MOTION: NORMAL. DOPPLER/COLOR FLOW: GRADE I DIASTOLIC DYSFUNCTION. COMMENTS: 1. NORMAL LEFT VENTRICULAR SYSTOLIC FUNCTION, EJECTION FRACTION 60-65%, NORMAL WALL MOTION. 2. GRADE I DIASTOLIC DYSFUNCTION. 3. NORMAL FILLING PRSSURE (RIGHT ATRIUM PRESSURE 0-5mmHg) TECHNOLOGIST: JONY QUINTANILLA
[2024-02-29 15:08] VITALS: O2SAT 99
--- NOTE | 2024-02-29 15:43 | P.PN ---
Subjective Date of Service: 02/29/24 Chief Complaint: COPD exacerbation Patient states he feels much better. He is eating well. No issues overnight. Patient apparently experienced dizziness with standing and could not ambulate with therapy today. Physical Examination - Vital Signs Temperature: 98 F Blood Pressure: 140/78 Pulse: 88 Respirations: 20 Pulse Ox (%): 98 - Studies Medications List Reviewed: Yes Assessment And Plan - Plan Physical Exam General: Alert, shortness of breath at rest, Oriented x3 Respiratory: Mild scattered wheezes, adequate breath sounds bilaterally. Cardiovascular: Regular rate/rhythm, Normal S1 S2, No murmurs Gastrointestinal: Normal bowel sounds, Soft and benign, Non-distended, No tenderness Musculoskeletal: No clubbing, No swelling, No tenderness; muscular atrophy Neurological: no focal deficits; Generalized weakness Diagnosis Pancytopenia with neutropenia Acute respiratory failure with hypoxia. COPD exacerbation Lung cancer Plan: COPD exacerbation Acute respiratory failure with hypoxia Patient is clinically improving. Continue bronchodilators-Brovana Continue oral antibiotics Continue steroid Wean oxygen to room air as tolerated Assess home oxygen Pancytopenia Improving ANC now greater than 1000. Continue oral cefdinir and Diflucan Monitor CBC. Generalized weakness Continue PT. DVT prophylaxis: SCD Advanced directive: Full code
[2024-02-29 16:08] VITALS: BP 119/64; TEMP 98.3
--- NOTE | 2024-02-29 18:17 | P.DS ---
Admission Date: 02/25/24 Discharge Date: 02/29/24 Disposition: ME HOME/HOME HEALTH CARE Discharge Condition: GOOD Reason for Admission: COPD exacerbation Brief History of Present Illness: Patient is 83 years of age with a history of COPD, active smoker recently completed chemotherapy and radiation therapy for lung cancer. he had his chemotherapy radiation therapy 1 week prior. He experienced increasing dyspnea requiring more oxygen. Patient stated he uses inhaler without improvement. He does not have a nebulizer. Patient was evaluated in the ED, chest x-ray demonstrated subtle right mid to lower lung patchy opacities, may reflect COPD exacerbation. CBC showed pancytopenia with severe neutropenia. Patient started on broad-spectrum antibiotics and admitted for further management. Hospital Course: Diagnosis Pancytopenia with neutropenia Acute respiratory failure with hypoxia. COPD exacerbation Lung cancer Patient admitted to the medical floor and the following medical problems addressed: Plan: COPD exacerbation Acute respiratory failure with hypoxia Bacterial pneumonia Patient treated with broad-spectrum antibiotics, placed on bronchodilators including Brovana, ipratropium. Patient was seen in consultation by pulmonary Dr. Weinstein. Patient's clinical condition improved, Continue bronchodilators-Brovana IV antibiotics transition to oral antibiotics. Patient was also treated with steroid He was still requiring up to 3 L of oxygen by nasal cannula Home oxygen has been arranged. Pancytopenia Pancytopenia improved ANC now greater than 1000, neutropenic precaution removed. Patient placed on oral cefdinir and Diflucan Generalized weakness Orthostasis Patient noted to have orthostasis. He was evaluated by physical therapy and was able to ambulate 45 feet with a walker. Orthostatic precautions advised. Risk of falls discussed. Patient is discharged with home health to continue PT. Vital Signs/Physical Exam: Temp Pulse Resp BP Pulse Ox 98.3 F 86 18 119/64 97 02/29/24 16:00 02/29/24 16:00 02/29/24 16:00 02/29/24 16:00 02/29/24 16:00 General: Alert, In no apparent distress, Oriented x3 HEENT: Mucous membr. moist/pink, Sclerae nonicteric Neck: Supple, JVD not distended Respiratory: Clear to auscultation bilaterally, Normal air movement Cardiovascular: No edema, Regular rate/rhythm, Normal S1 S2 Gastrointestinal: Normal bowel sounds, Soft and benign, Non-distended, No tenderness Musculoskeletal: No swelling Integumentary: No rashes, No cyanosis Neurological: Normal strength at 5/5 x4 extr ( ) Laboratory Data at Discharge: WBC 1.80 thou/uL (4.3-10.9) L 02/28/24 05:52 Hgb 9.4 g/dL (13.6-17.9) L D 02/28/24 05:52 Hct 27.5 % (39.6-49.0) L 02/28/24 05:52 Plt Count 76 thou/uL (152-406) L 02/28/24 05:52 PT 11.3 SECONDS (9.4-12.5) 02/25/24 19:48 INR 1.01 02/25/24 19:48 APTT 32.0 SECONDS (24.3-36.9) 02/25/24 19:48 Sodium 136 mEq/L (136-145) 02/28/24 05:52 Potassium 4.4 mEq/L (3.5-5.1) D 02/28/24 05:52 BUN 29 mg/dL (7-18) H 02/28/24 05:52 Creatinine 0.83 mg/dL (0.70-1.30) 02/28/24 05:52 Glucose 114 mg/dL (74-106) H 02/28/24 05:52 Magnesium 1.7 mg/dL (1.6-2.4) 02/28/24 05:52 Total Bilirubin 0.5 mg/dL (0.2-1.0) 02/28/24 05:52 AST 14 U/L (15-37) L 02/28/24 05:52 ALT < 14 U/L (16-61) L 02/28/24 05:52 Alkaline Phosphatase 79 U/L (45-117) 02/28/24 05:52 Home Medications: Cholecalciferol (Vitamin D3) [Vitamin D3] 400 unit PO DAILY 01/09/20 Cyanocobalamin (Vitamin B-12) [Vitamin B-12] 1,000 mcg PO DAILY 06/17/23 Fluticasone/Vilanterol [Breo Ellipta 100-25 Mcg Inhalr] 1 each IH DAILY 06/17/23 Thiamine HCl 100 mg PO DAILY 06/17/23 Vitamin B Complex [B Complex] 1 each PO DAILY 05/02/24 Metoprolol Succinate [Toprol Xl*] 25 mg PO DAILY 02/26/24 Ondansetron [Ondansetron Odt] 1 tab PO Q4HP PRN 02/26/24 Pantoprazole [Protonix Tab*] 40 mg PO DAILY 02/26/24 Varenicline Tartrate 1 tab PO BID 02/26/24 dexAMETHasone [Dexamethasone] 4 mg PO BID 02/26/24 Albuterol Neb [Proventil 0.083% Neb Soln] 2.5 mg NEB [id number] PRN #60 amp 02/28/24 Amlodipine [Norvasc*] 5 mg PO DAILY #30 tab 02/28/24 Arformoterol Tartrate [Brovana] 15 mcg NEB BIDRESP #60 vial.neb 02/28/24 Cefdinir [Cefdinir*] 300 mg PO BID #14 cap 02/28/24 Doxycycline Hyclate 100 mg PO BID #14 tab 02/28/24 Ensure Max Protein 330 ml PO AC #90 can 02/28/24 Fluconazole [Diflucan] 200 mg PO DAILY #7 tab 02/28/24 Ipratropium Neb [Atrovent*] 0.5 mg NEB [id number] PRN #60 amp 02/28/24 Nystatin 5 ml PO TID #250 ml 02/28/24 Nebulizer 1 each MC TID #1 ea 02/29/24 New Medications: Ipratropium Neb [Atrovent*] 0.5 mg NEB [id number] PRN #60 amp PRN Reason: secretions/dyspnea Albuterol Neb [Proventil 0.083% Neb Soln] 2.5 mg NEB [id number] PRN #60 amp PRN Reason: Shortness Of Breath Arformoterol Tartrate [Brovana] 15 mcg NEB BIDRESP #60 vial.neb Cefdinir [Cefdinir*] 300 mg PO BID #14 cap Fluconazole [Diflucan] 200 mg PO DAILY #7 tab Doxycycline Hyclate 100 mg PO BID #14 tab Ensure Max Protein 330 ml PO AC #90 can Nebulizer 1 each MC TID #1 ea Amlodipine [Norvasc*] 5 mg PO DAILY #30 tab Nystatin 5 ml PO TID #250 ml Physician Discharge Instructions: -DC IV and DC home -Follow-up with PCP in 1 to 2 weeks -Follow-up with Oncology in 1 to 2 weeks -Follow-up with Pulmonary in 2 to 4 weeks -Please call Dr. Vang at [phone] if any questions regarding hospital stay -Please call nursing station at [phone] if any nursing or medication questions -Return to the emergency room if symptoms worsen HOME HEALTH TO RESUME WITH: [facility] Home Health P:[phone] Diet: AHA Activity: Fall precautions Followup: Abner Weinstein MD [ACTIVE - CAN ADMIT] - (Follow up in 2-4 weeks) Zeenat Viera PA [Primary Care Provider] - 1-2 Weeks Time spent managing pt's care (in minutes): 35
== END 2024-02-29 20:01 | disposition home health service (06) | DRG 808 ==
LOC: ER 19:17 → ERHOLD 21:30 → 4TH 23:25
PROVIDERS: ADMIT Internal Medicine Sleep Medicine; ATTEND Internal Medicine
DX: D61.810 Antineoplastic chemotherapy induced pancytopenia (principal); J15.9 Unspecified bacterial pneumonia; J96.01 Acute respiratory failure with hypoxia; J44.1 Chronic obstructive pulmonary disease with (acute) exacerbation; C34.90 Malignant neoplasm of unspecified part of unspecified bronchus or lung; J44.0 Chronic obstructive pulmonary disease with (acute) lower respiratory infection; I10 Essential (primary) hypertension; N40.0 Benign prostatic hyperplasia without lower urinary tract symptoms; K21.9 Gastro-esophageal reflux disease without esophagitis; F17.210 Nicotine dependence, cigarettes, uncomplicated; T45.1X5A Adverse effect of antineoplastic and immunosuppressive drugs, initial encounter; Z79.899 Other long term (current) drug therapy; Z99.81 Dependence on supplemental oxygen; Z92.21 Personal history of antineoplastic chemotherapy; Z92.3 Personal history of irradiation
CPT/HCPCS: 36415; 71045; 80053; 83605; 83735; 84145; 85025; 85610; 85730; 87040; 93005; 93306; 94640; 94760; 96365; 96375; 97116; 97161; 97530; 99285; J0360; J0696; J1447; J1450; J1940; J2270; J2919; J7042; J7050; J7512; J7605; J7613; J7614; J7644; J8540

== ENCOUNTER 2024-03-21 14:12 | Emergency (ER) | payer OTHER ==
--- NOTE | 2024-03-21 15:39 | RAD REPORT ---
EXAM: Chest Single View HISTORY: Congestion;Cough COMPARISON: 02/28/2024 FINDINGS: LUNGS/PLEURA: Right upper lobe nodularity is similar to prior imaging. No new process identified. MEDIASTINUM: The mediastinal silhouette is within normal limits. CARDIAC: The cardiac silhouette is within normal limits. UPPER ABDOMEN: No significant abnormality. BONES: No acute abnormality. LINES/TUBES/OTHER: Port-A-Cath. IMPRESSION: Similar right upper lobe nodularity which presumably represents infection/inflammation though it may be a subacute process at this point. No new status post acute findings.
[2024-03-21 15:53] LABS: Absolute Eosinophils 0.1 K/uL (0-0.5); Absolute Monocytes 0.9 K/uL (0.1-1.3); Absolute Neutrophil 3.4 K/uL (1.8-8.0); Basophils % 0.7 % (0-1.3); Eosinophils % 2.4 % (0-4.4); Hematocrit 27.2 % (39.6-49.0); Hemoglobin 9.4 g/dL (13.6-17.9); Lymphocytes % 18.9 % (15.3-44.8); MCH 33.8 pg (27.0-35.0); MCHC 34.5 g/dL (32.0-36.0); MCV 98.1 fL (80-100); MPV 8.4 fL (7.6-11.3); Monocytes % 15.6 % (3.3-12.3); Neutrophils % 62.4 % (41.7-73.7); Nucleated Red Blood Cells % 0.1 % (0-0); Platelets 219 thou/uL (152-406); RBC Red Blood Cell Count 2.77 M/uL (4.33-5.43)
[2024-03-21] MEDS ORDERED: LEVALBUTEROL 1.25 MG/3 ML NEB ONE (15:56)
[2024-03-21] MEDS ORDERED: METHYLPREDNISOLONE 125 MG INJ ONE (15:56)
[2024-03-21] MEDS ORDERED: IPRATROPIUM BROM 0.5MG/2.5ML ONE (15:56)
[2024-03-21] MEDS ORDERED: NA CHLORIDE 0.9% 2,000 ML ONE (15:57)
[2024-03-21 16:07] LABS: PT Prothrombin Time 11.2 SECONDS (9.4-12.5); PTT, Activated Partial Thromb 36.4 SECONDS (24.3-36.9); Protime INR 1.07
[2024-03-21 16:16] LABS: Albumin 2.9 g/dL (3.4-5.0); Albumin/Globulin Ratio 0.6 (1.1-1.8); Anion Gap 4.5 mEq/L (5.0-15.0); Bilirubin Total 0.6 mg/dL (0.2-1.0); Globulin 4.5 g/dL (2.3-3.5); Potassium 4.5 mEq/L (3.5-5.1); Protein, Total 7.4 g/dL (6.4-8.2)
--- NOTE | 2024-03-21 18:09 | RAD REPORT ---
EXAMINATION: CTA CHEST PE CLINICAL INDICATION: Male, 83 years old. DYSPNEA TECHNIQUE: This examination was performed according to an angiographic protocol with 3D post-processi ng. This involves 3D reconstructions, MIPs, volume rendered images and/or shaded surface rendering. One or more of the following dose reduction techniques were used: Automated exposure control, adjustm ent of the mA and/or kV according to patient size, and/or iterative reconstruction. Unless otherwise specified, incidental findings do not require dedicated imaging follow-up. [id number]. COMPARISON: 03/09/2024 FINDINGS: LOWER NECK: Visualized thyroid gland and soft tissues are normal. Right upper chest wall Port-A-Cath. LUNGS AND AIRWAYS: Scattered bilateral reticulonodular opacities consistent with infectious or inflam matory process that is similar. There is an area of consolidation in the right upper lobe with air bronchogram that measures approximately 3.3 x 1.2 cm that is similar to prior. PLEURA: No pleural effusion. No pneumothorax. Hemidiaphragms are normally positioned. MEDIASTINUM AND LYMPH NODES: No mediastinal mass or fluid collection. Normal size mediastinal, hilar, and axillary lymph nodes. THORACIC AORTA: No thoracic aortic aneurysm. PULMONARY ARTERIES: Caliber is within normal limits. No pulmonary emboli identified. HEART: Normal heart size. No coronary calcifications.No significant pericardial effusion. OSSEOUS STRUCTURES AND CHEST WALL: Right upper chest wall Port-A-Cath. Short lesion in the right eigh th rib is unchanged. UPPER ABDOMEN: No acute abnormalities. IMPRESSION: No evidence of pulmonary emboli to the subsegmental level. Bilateral nodularity including a consolida tive/masslike area in the right upper lobe which is unchanged since 03/09/2024 and most consistent with an infectious or inflammatory process. Recommend 3 month follow-up chest CT to reassess.
--- NOTE | 2024-03-21 18:19 | EDPHYS ---
Physician Documentation [facility] Name: Frank Manzanares Jr Age: 83 yrs Sex: Male : 1940 Arrival Date: 03/21/2024 Time: 14:12 Bed 7 Private MD: ED Physician Jose Randall HPI: 03/21 14:36 This 83 yrs old Male presents to ER via Wheelchair with complaints of Blood Pressure kb Problem, Chest Tightness, Breathing Difficulty. 14:36 Pt is an 83 year old male who presents for shortness of breath, cough and congestion kb that has been worse than normal since yesterday. Reports weakness since this morning. Pt had a follow up with Dr Weinstein today and his BP was low so he was told to come to the ER for workup. Denies fever. DIL reports pt has had low blood pressure for the past few weeks so he has not been on his BP medication. States his chest feels tight, like he cannot take a full breath. . Historical: - Allergies: 14:29 No Known Allergies; ko1 - PMHx: 14:29 bladder tumor; GERD; Hypertension; Lung Cancer (bladder tumor); ko1 - PSHx: 14:29 Left hip (r ); ko1 - Immunization history:: Adult Immunizations unknown. - Infectious Disease History:: Denies. - Social history:: Smoking status: Patient/guardian denies using tobacco, but has a distant history of tobacco abuse. ROS: 14:36 Constitutional: As per HPI kb Exam: 14:36 Constitutional: This is a well developed, well nourished patient who is awake, alert, kb and in no acute distress. Head/Face: Normocephalic, atraumatic. ENT: Moist Mucous membranes Cardiovascular: Regular rate Abdomen/GI: Soft, non-tender. No distention Skin: Warm, dry with normal turgor. Normal color. MS/ Extremity: Pulses equal, no cyanosis. Neurovascular intact. Full, normal range of motion. Neuro: Awake and alert, GCS 15, oriented to person, place, time, and situation. 14:36 Respiratory: the patient does not display signs of respiratory distress, Respirations: normal, Breath sounds: rhonchi, that are moderate, are located in both bases, 16:05 ECG was reviewed by the Attending Physician. kb Vital Signs: 14:24 BP 103 / 61; Pulse 85; Resp 18; Temp 97; Pulse Ox 100% on 3 lpm NC; Weight 60 kg; bp Height 5 ft. 6 in. ; 16:02 BP 139 / 82; Pulse 65; Resp 16; Pulse Ox 100% ; bp 17:57 BP 146 / 77; Pulse 86; Resp 18; Pulse Ox 99% ; bp 18:22 BP 149 / 79; Pulse 87; Resp 16; Pulse Ox 100% ; bp 14:24 Body Mass Index 21.35 (60.00 kg, 167.64 cm) bp MDM: 14:21 Medical Screening Exam initiated kb 14:36 Data reviewed: vital signs, nurses notes. kb 17:13 Management of patient was discussed with the following: Skill Labor: Dr Weinstein kb suggests CT for PE rule out. If negative pt can be discharged home and take the prednisone he prescribed. . 18:17 Differential diagnosis: COPD exacerbation, pneumonia, pe. Consideration of kb Admission/Observation Escalation of care including admission/observation considered. admission considered, but BP improved after fluids, O2 sat 100% on home o2. Historians other than the Patient: Daughter/Son: daughter in law. Care significantly affected by the following chronic conditions: Chronic Obstructive Pulmonary Disease, Cancer. Counseling: I had a detailed discussion with the patient and/or guardian regarding the historical points, exam findings, and any diagnostic results supporting the discharge/admit diagnosis, lab results, radiology results, the need for outpatient follow up, a family practitioner, a licensed massage therapist, to return to the emergency department if symptoms worsen or persist or if there are any questions or concerns that arise at home. 03/21 14:31 Order name: Blood Culture Adult (2) 03/21 14:31 Order name: CBC with Diff; Complete Time: 16:02 kb 03/21 14:31 Order name: CMP; Complete Time: 16:21 kb 03/21 14:31 Order name: Lactate w/ 2H reflex if indic.; Complete Time: 16:21 kb 03/21 14:31 Order name: Protime (+inr); Complete Time: 16:09 kb 03/21 14:31 Order name: Ptt, Activated; Complete Time: 16:09 kb 03/21 14:31 Order name: Chest Single View XRAY; Complete Time: 15:40 kb 03/21 16:56 Order name: CT Chest For PE Angio; Complete Time: 18:11 kb /04 14:31 Order name: Accucheck; Complete Time: 15:45 kb 03/21 14:31 Order name: Cardiac monitoring; Complete Time: 15:45 kb 04 14:31 Order name: EKG - Nurse/Tech; Complete Time: 15:32 kb 03/21 14:31 Order name: IV Saline Lock - Large Bore; Complete Time: 15:32 kb 03/21 14:31 Order name: Labs collected and sent; Complete Time: 15:32 kb 03/21 14:31 Order name: O2 Per Protocol; Complete Time: 15:45 kb 03/21 14:31 Order name: O2 Sat Monitoring; Complete Time: 15:45 kb 03/21 14:31 Order name: Vital Signs; Complete Time: 15:45 kb EC:05 Rate is 82 beats/min. Rhythm is regular. QRS [place] is Normal. HI interval is normal at kb 168 msec. QRS interval is normal at 78 msec. QT interval is normal at 425 msec. Administered Medications: 14:31 CANCELLED (Duplicate Order): albuterol2.5 mg Inhalation once kb 16:01 Drug: Levalbuterol Inhalation 1.25 mg Inhalation once Route: Inhalation; bp 16:02 Drug: NS 0.9% IV (30 ml/kg) 30 ml/kg IV at bolus once; Sepsis Protocol; to be given as bp a bolus over 90 minutes Route: IV; Rate: bolus; Site: left antecubital; 18:23 Follow up: IV Status: Completed infusion bp 16:02 Drug: MethylPrednisoLONE IVP 125 mg IVP once Route: IVP; Site: left antecubital; bp 18:23 Follow up: Response: No adverse reaction bp 16:02 Drug: Ipratropium Inhalation Aerosol 0.5 mg Inhalation once Route: Inhalation; bp Disposition: 15:19 I was immediately available on-site in the Emergency Department for consultation in the [facility] [place]. Disposition Summary: 03/21/24 18:19 Discharge Ordered Notes: Location: Home kb Condition: Stable kb Diagnosis - COPD/ Chronic obstructive pulmonary disease with (acute) exacerbation kb Followup: kb - With: Emergency Department - When: As needed - Reason: Worsening of condition Followup: kb - With: Private Physician - When: 2 - 3 days - Reason: Recheck today's complaints, Continuance of care, Re-evaluation by your physician Discharge Instructions: - Discharge Summary Sheet kb - Chronic Obstructive Pulmonary Disease Exacerbation kb Forms: - Medication Reconciliation Form kb - Antibiotic Education kb - Prescription Opioid Use kb - Patient Portal Instructions kb - Leadership Thank You Letter kb Signatures: Dispatcher [employer] EDVaishnavi Matson, PENNY HOLBROOK-Conner Francisco, RN RN Jose Marina DO DO ms3 Martha Yan, TIKA RN ko1 Corrections: (The following items were deleted from the chart) 14:31 14:31 Albuterol Inhalation 2.5 mg Inhalation once ordered. kb kb 14:36 14:36 Respiratory: the patient does not display signs of respiratory distress, kb Respirations: normal, Breath sounds: wheezing: expiratory that is mild, that is moderate, is heard diffusely, kb 16:56 16:56 Chest For PE Angio+CT.RAD.BRZ ordered. EDMS EDFL
--- NOTE | 2024-03-21 18:19 | ER ---
Nurse's Notes [facility] Name: Frank Manzanares Jr Age: 83 yrs Sex: Male : 1940 Arrival Date: 03/21/2024 Time: 14:12 Bed 7 Private MD: Diagnosis: COPD/ Chronic obstructive pulmonary disease with (acute) exacerbation Presentation: 03/21 14:24 Chief complaint: Patient states: having some shortness of breath, had low blood ko1 pressure at Dr office. Coronavirus screen: At this time, the client does not indicate any symptoms associated with coronavirus-19. Ebola Screen: No symptoms or risks identified at this time. Initial Sepsis Screen: Does the patient meet any 2 criteria? No. Patient's initial sepsis screen is negative. Does the patient have a suspected source of infection? No. Patient's initial sepsis screen is negative. Risk Assessment: Do you want to hurt yourself or someone else? Patient reports no desire to harm self or others. Onset of symptoms is unknown. 14:24 Method Of Arrival: Wheelchair ko1 14:24 Acuity: HEATHER 3 ko1 Triage Assessment: 14:29 General: Appears in no apparent distress. ill, Behavior is calm, cooperative, ko1 appropriate for age. Pain: Denies pain. Cardiovascular: Reports fatigue, shortness of breath. Respiratory: Reports shortness of breath. Historical: - Allergies: 14:29 No Known Allergies; ko1 - PMHx: 14:29 bladder tumor; GERD; Hypertension; Lung Cancer (bladder tumor); ko1 - PSHx: 14:29 Left hip (r ); ko1 - Immunization history:: Adult Immunizations unknown. - Infectious Disease History:: Denies. - Social history:: Smoking status: Patient/guardian denies using tobacco, but has a distant history of tobacco abuse. Screenin:[facility] ED Fall Risk Assessment (Adult) History of falling in the last 3 months, bp including since admission No falls in past 3 months (0 pts) Confusion or Disorientation No (0 pts) Intoxicated or Sedated No (0 pts) Impaired Gait No (0 pts) Mobility Assist Device Used No (0 pt) Altered Elimination No (0 pt) Score/Fall Risk Level 0 - 2 = Low Risk Oriented to surroundings. Abuse screen: Denies threats or abuse. Denies injuries from another. Nutritional screening: No deficits noted. Tuberculosis screening: No symptoms or risk factors identified. Assessment: 15:43 Reassessment: Patient and/or family updated on plan of care and expected duration. Pain ll1 level reassessed. 16:02 Reassessment: RECD PT FROM TRIAGE. Respiratory: Breath sounds are coarse bilaterally. bp Breath sounds with crackles bilaterally. 17:57 Reassessment: No changes from previously documented assessment. Patient is alert, bp oriented x 3, equal unlabored respirations, skin warm/dry/pink. Vital Signs: 14:24 BP 103 / 61; Pulse 85; Resp 18; Temp 97; Pulse Ox 100% on 3 lpm NC; Weight 60 kg; bp Height 5 ft. 6 in. ; 16:02 BP 139 / 82; Pulse 65; Resp 16; Pulse Ox 100% ; bp 17:57 BP 146 / 77; Pulse 86; Resp 18; Pulse Ox 99% ; bp 18:22 BP 149 / 79; Pulse 87; Resp 16; Pulse Ox 100% ; bp 14:24 Body Mass Index 21.35 (60.00 kg, 167.64 cm) bp ED Course: 14:16 Patient arrived in ED. al6 14:21 Vaishnavi Wheeler FNP-C [facility] kb 14:29 Triage completed. ko1 14:29 Arm band placed on right wrist. Patient placed in waiting room, Patient notified of ko1 wait time. 14:40 Jose Randall DO is Attending Physician. kb 15:17 Chest Single View XRAY In Process Unspecified. EDMS 15:30 Initial lab(s) drawn, by me, sent to lab. First set of blood cultures drawn by me. bc6 15:32 Blood Culture Adult (2) Sent. bc6 15:32 CBC with Diff Sent. bc6 15:32 CMP Sent. bc6 15:32 Lactate w/ 2H reflex if indic. Sent. bc6 15:32 Protime (+inr) Sent. bc6 15:32 Ptt, Activated Sent. bc6 15:32 Inserted saline lock: 20 gauge in left antecubital area, using aseptic technique. Blood bc6 collected. Flushed with 10 mL NS. 15:43 Patient placed in an exam room, on a stretcher. ll1 15:44 Conner Walker, RN is Primary Nurse. bp 16:00 Patient has correct armband on for positive identification. Client placed on continuous bp cardiac and pulse oximetry monitoring. NIBP monitoring applied. playground monitor on. Pulse ox on. NIBP on. 17:43 CT Chest For PE Angio In Process Unspecified. EDMS 18:37 No provider procedures requiring assistance completed. IV discontinued, intact, bp bleeding controlled, No redness/swelling at site. Pressure dressing applied. Oxygen administration via nasal cannula \T\ 4L/min. Administered Medications: 14:31 CANCELLED (Duplicate Order): albuterol2.5 mg Inhalation once kb 16:01 Drug: Levalbuterol Inhalation 1.25 mg Inhalation once Route: Inhalation; bp 16:02 Drug: NS 0.9% IV (30 ml/kg) 30 ml/kg IV at bolus once; Sepsis Protocol; to be given as bp a bolus over 90 minutes Route: IV; Rate: bolus; Site: left antecubital; 18:23 Follow up: IV Status: Completed infusion bp 16:02 Drug: MethylPrednisoLONE IVP 125 mg IVP once Route: IVP; Site: left antecubital; bp 18:23 Follow up: Response: No adverse reaction bp 16:02 Drug: Ipratropium Inhalation Aerosol 0.5 mg Inhalation once Route: Inhalation; bp Medication: 18:38 VIS not applicable for this client. bp Outcome: 18:19 Discharge ordered by kb 18:37 Discharged to home via wheelchair, with family, bp 18:37 Condition: stable 18:37 Discharge instructions given to patient, family, Instructed on discharge instructions, follow up and referral plans. Demonstrated understanding of instructions, follow-up care, 18:38 Patient left the ED. bp Signatures: Dispatcher [employer] EDMS Vaishnavi Wheeler, CASINO HOST-C CASINO HOST-CkConner Smallwood RN RN bp Loyda Mix RN RN ll1 Martha Yan, TIKA RN ko1 Wanda Garrido Alissa al6 Corrections: (The following items were deleted from the chart) 15:45 14:24 BP 103 / 61; Pulse 85bpm; Resp 18bpm; Pulse Ox 100% 3 lpm Nasal Cannula; Temp bp 97F; ko1
[2024-03-21 19:37] VITALS: TEMP 97
[2024-03-21 20:01] VITALS: BP 149/79; O2SAT 100
--- NOTE | 2024-03-22 11:29 | EKG ---
Test Date: 2024-03-21 Test Time: 15:45:03 Road Roller Operator Hot Mix: MICHELL MEASUREMENT RESULTS: Intervals: Rate: 82 ME: 168 QRSD: 78 QT: 364 QTc: 425 [place]: P: 81 ME: 168 QRS: 70 T: 86 INTERPRETIVE STATEMENTS: Normal sinus rhythm Normal ECG Compared to ECG 02/25/2024 19:39:05 Myocardial infarct finding no longer present Electronically Signed On 03-22-24 11:27:51 HAND FINISHER by Mo Paez
== END 2024-03-21 18:38 | disposition home or self-care (01) ==
LOC: ER 14:12
DX: J44.1 Chronic obstructive pulmonary disease with (acute) exacerbation (principal); R07.89 Other chest pain; I10 Essential (primary) hypertension; Z85.118 Personal history of other malignant neoplasm of bronchus and lung
CPT/HCPCS: 87040 ×2; 85025; 36415; 85610; 83605; 85730; 80053; 71275; 71045; Q9967; J7614; J7644; J2919; J7030; 93005

== ENCOUNTER 2024-06-26 16:45 | Observation (INO) | payer OTHER ==
[2024-06-26 17:53] LABS: Absolute Basophils 0.1 K/uL (0-0.5); Absolute Lymphocytes (CBC) 0.6 K/uL (0.7-4.9); Absolute Monocytes 0.7 K/uL (0.1-1.3); Absolute Neutrophil 7.6 K/uL (1.8-8.0); Basophils % 0.6 % (0-1.3); Eosinophils % 0.3 % (0-4.4); Hemoglobin 10.7 g/dL (13.6-17.9); Lymphocytes % 6.6 % (15.3-44.8); MCH 32.1 pg (27.0-35.0); MCHC 34.5 g/dL (32.0-36.0); MPV 8.4 fL (7.6-11.3); Monocytes % 7.5 % (3.3-12.3); Platelets 195 thou/uL (152-406); RBC Red Blood Cell Count 3.33 M/uL (4.33-5.43); Red Cell Distribution Width 14.8 % (12.1-15.2)
[2024-06-26 18:00] LABS: PT Prothrombin Time 12.7 SECONDS (10-13.0); Protime INR 1.12
[2024-06-26 18:15] LABS: AST/SGOT 15 U/L (15-37); Albumin 2.9 g/dL (3.4-5.0); Albumin/Globulin Ratio 0.8 (1.1-1.8); Alkaline Phosphatase 96 U/L (45-117); Anion Gap 8.2 mEq/L (5.0-15.0); BUN Blood Urea Nitrogen 20 mg/dL (7-18); Bicarbonate 29 mEq/L (21-32); Bilirubin Direct 0.2 mg/dL (0-0.2); Bilirubin Indirect, Calculated 0.2 mg/dL (0.2-0.8); Bilirubin Total 0.4 mg/dL (0.2-1.0); Globulin 3.7 g/dL (2.3-3.5); Glomerular Filtration Rate 51 ml/min (=/>90); Glucose Level 98 mg/dL (74-106); Magnesium 1.8 mg/dL (1.6-2.4); NT PRO-BNP 1127 pg/mL (<450); Potassium 4.2 mEq/L (3.5-5.1); Protein, Total 6.6 g/dL (6.4-8.2); Sodium Level 138 mEq/L (136-145)
[2024-06-26 18:22] LABS: ALT/SGPT < 14 U/L (16-61)
[2024-06-26 18:24] LABS: Troponin High Sensitivity 69.8 pg/mL (<58.9)
--- NOTE | 2024-06-26 18:41 | EDPHYS ---
Physician Documentation [facility] Name: Frank Manzanares Jr Age: 83 yrs Sex: Male : 1940 Arrival Date: 06/26/2024 Time: 16:45 Bed 14 Private MD: ED Physician Loly Carreon HPI: 06/26 17:41 This 83 yrs old Male presents to ER via EMS with complaints of Fall Injury. sp3 17:41 83-year-old male with history of lung cancer from a bladder source currently on chemo, sp3 COPD presents to the ED with near syncope and fall with injury to the posterior occiput. Patient generally weak. He denies any other symptoms including full syncope, chest pain, headache, neck pain, shortness of breath, abdominal pain, bleeding, or any other signs or symptoms on ROS at this time.. Historical: - Allergies: 17:00 No Known Allergies; cm10 - PMHx: 17:00 bladder tumor; GERD; Hypertension; Lung Cancer (bladder tumor); Chronic obstructive cm10 lung disease; - PSHx: 17:00 Left hip; cm10 - Immunization history:: Adult Immunizations up to date. - Infectious Disease History:: Denies. - Social history:: Smoking status: unknown. ROS: 17:42 Constitutional: Negative for fever, chills, and weight loss, Eyes: Negative for injury, sp3 pain, redness, and discharge, ENT: Negative for injury, pain, and discharge, Neck: Negative for injury, pain, and swelling, Respiratory: Negative for shortness of breath, cough, wheezing, and pleuritic chest pain, Abdomen/GI: Negative for abdominal pain, nausea, vomiting, diarrhea, and constipation, Back: Negative for injury and pain, MS/Extremity: Negative for injury and deformity, Psych: Negative for depression, anxiety, suicide ideation, homicidal ideation, and hallucinations, Allergy/Immunology: Negative for hives, rash, and allergies, Endocrine: Negative for neck swelling, polydipsia, polyuria, polyphagia, and marked weight changes, 17:42 All other systems are negative, Exam: 17:42 Constitutional: This is a well developed, well nourished patient who is awake, alert, sp3 and in no acute distress. Eyes: Pupils equal round and reactive to light, extra-ocular motions intact. Lids and lashes normal. Conjunctiva and sclera are non-icteric and not injected. Cornea within normal limits. Periorbital areas with no swelling, redness, or edema. ENT: Nares patent. No nasal discharge, no septal abnormalities noted. External auditory canals are clear. Oropharynx with no redness, swelling, or masses, exudates, or evidence of obstruction, uvula midline. Mucous membranes moist. Neck: Trachea midline, no thyromegaly or masses palpated, and no cervical lymphadenopathy. Supple, full range of motion without nuchal rigidity, or vertebral point tenderness. No Meningismus. Chest/axilla: Normal chest wall appearance and motion. Nontender with no deformity. No lesions are appreciated. Cardiovascular: Regular rate and rhythm with a normal S1 and S2. No gallops, murmurs, or rubs. Normal PMI, no JVD. No pulse deficits. Respiratory: Lungs have equal breath sounds bilaterally, clear to auscultation and percussion. No rales, rhonchi or wheezes noted. No increased work of breathing, no retractions or nasal flaring. Abdomen/GI: Soft, non-tender, with normal bowel sounds. No distension or tympany. No guarding or rebound. No evidence of tenderness throughout. Back: No spinal tenderness. No costovertebral tenderness. Full range of motion. Skin: Warm, dry with normal turgor. Normal color with no rashes, no lesions, and no evidence of cellulitis. MS/ Extremity: Pulses equal, no cyanosis. Neurovascular intact. Full, normal range of motion. 17:42 Head/face: Abrasion noted to the posterior occiput region. Mild hematoma also noted.. 17:42 Neuro: Patient globally weak with no focal deficits., 17:59 ECG was reviewed by the Attending Physician. EKG demonstrates normal sinus rhythm at 84 sp3 bpm with normal intervals, normal QRS, leftward axis, poor R wave progression and normal ST/T-segment's without evidence of acute ischemia. Vital Signs: 16:57 BP 124 / 75; Pulse 93; Resp 17; Temp 96.9(A); Pulse Ox 100% on 4 lpm NC; Weight 54.43 cm10 kg; Height 5 ft. 6 in. ; Pain 7/10; 17:30 BP 121 / 99; Pulse 86; Resp 19; Pulse Ox 100% on 4 lpm NC; cm10 18:00 BP 136 / 82; Pulse 80; Resp 14; Pulse Ox 100% on 4 lpm NC; cm10 18:15 BP 161 / 79; Pulse 79; Resp 22; Pulse Ox 100% on 4 lpm NC; cm10 20:18 BP 143 / 84; Pulse 89; Resp 20; Pulse Ox 98% on 4 lpm NC; cm10 16:57 Body Mass Index 19.37 (54.43 kg, 167.64 cm) cm10 16:57 Pain Scale: Adult cm10 MDM: 17:08 Medical Screening Exam initiated sp3 17:43 Data reviewed: vital signs, nurses notes, old medical records, lab test result(s), EKG, sp3 radiologic studies. ED course: 9-year-old male with near syncope and fall. Differential diagnosis includes vasovagal episode, electrolyte abnormality, or other metabolic syndrome, ACS, infection, among others to incite the fall. From a trauma standpoint patient likely has closed head injury with abrasion and a possibility of intracranial hemorrhage. All of this will be evaluated with CT scan of the head and C-spine, general labs, chest x-ray, EKG, and general supportive care until workup is complete. Disposition pending workup and patient course.. 06/26 17:13 Order name: Basic Metabolic Panel; Complete Time: 18:25 3 06/26 17:13 Order name: CBC with Diff; Complete Time: 18:25 3 06/26 17:13 Order name: LFT's; Complete Time: 18:25 3 06/26 17:13 Order name: Magnesium; Complete Time: 18:25 3 06/26 17:13 Order name: NT PRO-BNP; Complete Time: 18:25 3 06/26 17:13 Order name: PT-INR; Complete Time: 18:25 3 06/26 17:13 Order name: Troponin HS; Complete Time: 18:25 3 06/27 06:32 Order name: CBC with Automated Diff; Complete Time: 09:45 EDMS 06/27 06:37 Order name: Comprehensive Metabolic Panel; Complete Time: 09:45 EDMS 06/27 06:37 Order name: Creatine Phosphokinase; Complete Time: 09:45 EDMS 06/27 06:37 Order name: NT PRO-BNP; Complete Time: 09:45 EDMS 06/27 06:37 Order name: Troponin High Sensitivity; Complete Time: 09:45 EDMS 06/26 17:08 Order name: CT Head C Spine; Complete Time: 09:45 sp3 06/26 17:13 Order name: XRAY Chest (1 view); Complete Time: 09:45 sp3 06/26 19:47 Order name: Echo with Doppler EDMS 06/26 19:47 Order name: Echo with Doppler EDMS 06/26 17:13 Order name: Cardiac monitoring; Complete Time: 17:40 sp3 06/26 17:13 Order name: EKG - Nurse/Tech; Complete Time: 17:40 sp3 06/26 17:13 Order name: IV Saline Lock; Complete Time: 17:40 sp3 06/26 17:13 Order name: Labs collected and sent; Complete Time: 17:40 sp3 06/26 17:13 Order name: O2 Per Protocol; Complete Time: 17:40 sp3 06/26 17:13 Order name: O2 Sat Monitoring; Complete Time: 17:40 sp3 Administered Medications: No medications were administered Disposition Summary: 06/26/24 18:41 Hospitalization Ordered Notes: Hospitalization Status: Observation sp3 Provider: Jeannine Vang sp3 Condition: Stable sp3 Problem: an acute exacerbation sp3 Symptoms: have worsened sp3 Bed/Room Type: Standard sp3 Location: [facility] ER HOLD(06/26/24 19:50) Room Assignment: ERHOLD-(06/26/24 19:50) cg Diagnosis - Syncope, fall, closed head injury, NSTEMI sp3 Forms: - Medication Reconciliation Form sp3 - SBAR form sp3 - Leadership Thank You Letter sp3 Signatures: Dispatcher [employer] EDBeronica Gauthier, RN RN cg Loly Carreon MD MD sp3 Mer Grissom RN RN cm10 Corrections: (The following items were deleted from the chart) 17:14 17:14 BASIC METABOLIC PANEL+C.LAB.BRZ ordered. EDMS EDMS 17:14 17:14 CBC+H.LAB.BRZ ordered. EDMS EDMS 17:14 17:14 HEPATIC FUNCTION+C.LAB.BRZ ordered. EDMS EDMS 17:14 17:14 MAGNESIUM+C.LAB.BRZ ordered. EDMS EDMS 17:14 17:14 PROBNP+C.LAB.BRZ ordered. EDMS EDMS 17:14 17:14 PROTIME (+INR)+COAG.LAB.BRZ ordered. EDMS EDMS 17:14 17:14 Troponin High Sensitivity+C.LAB.BRZ ordered. EDMS EDMS 17:14 17:14 Chest Single View+RAD.RAD.BRZ ordered. EDMS EDMS 19:50 18:41 Telemetry/MedSurg (observation) sp3 cg 19:50 18:41 sp3 cg
--- NOTE | 2024-06-26 18:41 | ER ---
Nurse's Notes [facility] Name: Frank Manzanares Jr Age: 83 yrs Sex: Male : 1940 Arrival Date: 06/26/2024 Time: 16:45 Bed 14 Private MD: Diagnosis: Syncope, fall, closed head injury, NSTEMI Presentation: 06/26 16:57 Chief complaint: EMS states: TONED OUT TO PATIENT'S HOME FOR FALL. EMS REPORTS THAT cm10 PATIENT WAS USING THE RESTROOM FELT DIZZY AND FELL. PT HIT HEAD ON ON WOODEN SHELF. ABRASION NOTED TO BACK OF HEAD, BLEEDING CONTROLLED. PT ALSO REPORTS LEFT ARM PAIN. UNKNOWN LOC, NOT ON BLOOD THINNERS. PT ARRIVED A\T\OX4. EMS STATES THAT WHEN THEY ARRIVED PT WAS HYPOTENSIVE 71/43, IV FLUIDS GIVEN AND BP IMPROVED. 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 Coronavirus screen: Client denies travel out of the [place] in the last 14 days. Ebola Screen: Patient denies travel to an Ebola-affected area in the 21 days before illness onset. Initial Sepsis Screen: Does the patient meet any 2 criteria? HR > 90 bpm. Does the patient have a suspected source of infection? No. Patient's initial sepsis screen is negative. Risk Assessment: Do you want to hurt yourself or someone else? Patient reports no desire to harm self or others. Onset of symptoms was June 26, 2024. 16:57 Method Of Arrival: EMS: [facility] cm10 16:57 Acuity: HEATHER 3 cm10 17:15 Care prior to arrival: Medication(s) given: Normal saline infusion, 500 mL, IV cm10 initiated. 20 GA, in the right antecubital area, Glucose check: 96. Triage Assessment: 17:14 General: Appears in no apparent distress. uncomfortable, Behavior is calm, cooperative. cm10 Pain: Complains of pain in left arm Pain currently is 7 out of 10 on a pain scale. Neuro: No deficits noted. Level of Consciousness is awake, alert, obeys commands, Oriented to person, place, time, situation, Appropriate for age. Respiratory: No deficits noted. Airway is patent Respiratory effort is even, unlabored, Respiratory pattern is regular, symmetrical. Derm: Abrasion to back of head. Historical: - Allergies: 17:00 No Known Allergies; cm10 - PMHx: 17:00 bladder tumor; GERD; Hypertension; Lung Cancer (bladder tumor); Chronic obstructive cm10 lung disease; - PSHx: 17:00 Left hip; cm10 - Immunization history:: Adult Immunizations up to date. - Infectious Disease History:: Denies. - Social history:: Smoking status: unknown. Screenin:54 [facility] ED Fall Risk Assessment (Adult) History of falling in the last 3 months, cm10 including since admission Yes- physiologic fall (2 pts) Confusion or Disorientation No (0 pts) Intoxicated or Sedated No (0 pts) Impaired Gait Yes (1 pt) Mobility Assist Device Used Yes (1 pt) Altered Elimination No (0 pt) Score/Fall Risk Level 3 or more points = High Risk Oriented to surroundings, Maintained a safe environment, Hourly rounding (assess needs \T\ fall precautionary measures) done. Abuse screen: Denies threats or abuse. Denies injuries from another. Nutritional screening: No deficits noted. Tuberculosis screening: No symptoms or risk factors identified. Assessment: 18:00 Reassessment: Patient appears in no apparent distress at this time. Patient and/or cm10 family updated on plan of care and expected duration. Pain level reassessed. Patient is alert, oriented x 3, equal unlabored respirations, skin warm/dry/pink. 20:00 Reassessment: Patient appears in no apparent distress at this time. Patient and/or cm10 family updated on plan of care and expected duration. Pain level reassessed. Patient is alert, oriented x 3, equal unlabored respirations, skin warm/dry/pink. Vital Signs: 16:57 BP 124 / 75; Pulse 93; Resp 17; Temp 96.9(A); Pulse Ox 100% on 4 lpm NC; Weight 54.43 cm10 kg; Height 5 ft. 6 in. ; Pain 7/10; 17:30 BP 121 / 99; Pulse 86; Resp 19; Pulse Ox 100% on 4 lpm NC; cm10 18:00 BP 136 / 82; Pulse 80; Resp 14; Pulse Ox 100% on 4 lpm NC; cm10 18:15 BP 161 / 79; Pulse 79; Resp 22; Pulse Ox 100% on 4 lpm NC; cm10 20:18 BP 143 / 84; Pulse 89; Resp 20; Pulse Ox 98% on 4 lpm NC; cm10 16:57 Body Mass Index 19.37 (54.43 kg, 167.64 cm) cm10 16:57 Pain Scale: Adult cm10 ED Course: 16:57 Patient arrived in ED. cm10 16:58 Loly Carreon MD is Attending Physician. sp3 17:00 Triage completed. cm10 17:01 Arm band placed on right wrist. Patient placed in an exam room, on a stretcher, on cm10 oxygen, on panel monitor, on pulse oximetry. 17:16 Mer Grissom, RN is Primary Nurse. cm10 17:54 Patient has correct armband on for positive identification. Bed in low position. Call cm10 light in reach. Side rails up X2. Client placed on continuous cardiac and pulse oximetry monitoring. NIBP monitoring applied. clinical research monitor on. 17:54 Maintain EMS IV. Dressing intact. Good blood return noted. Site clean \T\ dry. Gauge \T\ cm 10 site: 20g right ac. Flushed with 10 mL NS Changed dressing on right antecubital. 18:28 CT Head C Spine In Process Unspecified. EDMS 18:40 Jeannine Vang MD is Hospitalizing Provider. sp3 18:57 XRAY Chest (1 view) In Process Unspecified. EDMS 20:00 Provided Education on: Meed for admit. cm10 20:00 No provider procedures requiring assistance completed. cm10 20:00 Patient admitted, IV remains in place. cm10 Administered Medications: No medications were administered Medication: 17:54 VIS not applicable for this client. cm10 Outcome: 18:41 Decision to Hospitalize by Provider. sp3 20:00 Admitted to ER Hold. Please see [facility] for further documentation. cm10 20:00 Condition: good cm10 20:00 Instructed on the need for admit, 06/27 10:25 Admitted to Manufacturing Quality Technician accompanied by nurse, via stretcher, Report called to nurse from la1 manufacturing laborer Condition: stable Instructed on the need for admit, 10:26 Patient left the ED. [email or web address] Signatures: Dispatcher [employer] EDMS Loly Carreon MD MD sp3 Mer Grissom, RN TIKA cm10 Jacque Isidro RN RN me1 Corrections: (The following items were deleted from the chart) 06/26 17:15 16:57 Chief complaint: EMS states: TONED OUT TO PATIENT'S HOME FOR FALL. EMS REPORTS cm10 THAT PATIENT WAS USING THE RESTROOM FELT DIZZY AND FELL. PT HIT HEAD ON ON WOODEN SHELF. ABRASION NOTED TO BACK OF HEAD, BLEEDING CONTROLLED. PT ALSO REPORTS LEFT ARM PAIN. UNKNOWN LOC, NOT ON BLOOD THINNERS. PT ARRIVED A\T\OX4. EMS STATES THAT WHEN THEY ARRIVED PT WAS HYPOTENSIVE 71/43, IV FLUIDS GIVEN AND BP IMPROVED. cm10
--- NOTE | 2024-06-26 19:11 | RAD REPORT ---
EXAMINATION: CT HEAD WITHOUT CONTRAST CT CERVICAL SPINE WITHOUT CONTRAST CLINICAL INDICATION: Head and neck injury status post fall. Head and neck pain TECHNIQUE: Axial CT images from the skull base to the vertex without intravenous contrast. Axial CT i mages through the cervical spine were obtained without intravenous contrast. Sagittal and coronal reformatted images were created from the data set. Coronal and sagittal reformatted images were creat ed from the data set. One or more of the following dose reduction techniques were used: Automated exposure control, adjustment of the mA and/or kV according to patient size, and/or iterative reconstr uction. Unless otherwise specified, incidental findings do not require dedicated imaging follow-up. [id number]. Comparison: 2023 FINDINGS: An intracranial bleed is not seen. Ventricles are normal in caliber. No significant hypodensity within the brain No extra-axial fluid collection. No fluid within the sinuses/mastoids No fracture or dislocation is seen involving the cervical spine. Spondylosis cervical spine. Mild chronic anterior subluxation C7 on T1. IMPRESSION: No acute intracranial abnormality noted A cervical fracture is not seen. If the patient continues to have symptoms to suggest acute VACUUM APPLICATOR OPERATOR/spinal pathology then MRI would be rec ommended
--- NOTE | 2024-06-26 19:41 | RAD REPORT ---
Procedure: Chest Single View HISTORY: Lung cancer. Syncope COMPARISON: March 2024 FINDINGS: Bilateral lung opacities are without obvious change. Lungs are moderately hyperaerated consistent with COPD. Heart is normal size. Central venous catheter in place.
[2024-06-26] MEDS ORDERED: ACETAMINOPHEN 325 MG TABLET PO PRN (19:46)
--- NOTE | 2024-06-26 20:04 | P.HP ---
Certification for Inpatient Patient admitted to: Observation With expected LOS: <2 Midnights Patient will require the following post-hospital care: Home Health Services Practitioner: I am a practitioner with admitting privileges, knowledge of patient current condition, hospital course, and medical plan of care. Services: Services provided to patient in accordance with Admission requirements found in Title 42 Section 412.3 of the Code of Federal Regulations Patient History Date of Service: 06/26/24 Reason for admission: Syncope, elevated troponin, PARISH. History of Present Illness: Patient is an 83-year-old male with past medical history of GERD, essential hypertension, lung cancer currently receiving chemotherapy, bladder cancer, COPD, chronic tobacco use disorder, brought to the ER today after having a syncope episode associated with loss of consciousness at home. Patient states approximately 12 PM, he got up from his bed, extremely weak, states he ambulated to the restroom, while in the restroom state he fell forward hitting his head, states he cannot remember the event , or what actually happened, his emergency alert system activated EMS and they arrived at the patient home and got him off the floor. Patient denies of any chest pain at this time, shortness of breath, complain of mild occipital headache,but his CT of the head is negative at this time. Patient has a slight bump on his troponin 69.8 with no associated chest pain, sinus rhythm on EKG, BNP 1127. Allergies No Known Allergies Allergy (Verified 02/26/24 00:10) Home Medications: Cholecalciferol (Vitamin D3) [Vitamin D3] 400 unit PO DAILY 01/09/20 Cyanocobalamin (Vitamin B-12) [Vitamin B-12] 1,000 mcg PO DAILY 06/17/23 Fluticasone/Vilanterol [Breo Ellipta 100-25 Mcg Inhalr] 1 each IH DAILY 06/17/23 Thiamine HCl 100 mg PO DAILY 06/17/23 Vitamin B Complex [B Complex] 1 each PO DAILY 06/17/23 Metoprolol Succinate [Toprol Xl*] 25 mg PO DAILY 02/26/24 Ondansetron [Ondansetron Odt] 1 tab PO Q4HP PRN 02/26/24 Pantoprazole [Protonix Tab*] 40 mg PO DAILY 02/26/24 Varenicline Tartrate 1 tab PO BID 02/26/24 dexAMETHasone [Dexamethasone] 4 mg PO BID 02/26/24 Albuterol Neb [Proventil 0.083% Neb Soln] 2.5 mg NEB [id number] PRN #60 amp 02/28/24 Amlodipine [Norvasc*] 5 mg PO DAILY #30 tab 02/28/24 Arformoterol Tartrate [Brovana] 15 mcg NEB BIDRESP #60 vial.neb 02/28/24 Cefdinir [Cefdinir*] 300 mg PO BID #14 cap 02/28/24 Doxycycline Hyclate 100 mg PO BID #14 tab 02/28/24 Ensure Max Protein 330 ml PO AC #90 can 02/28/24 Fluconazole [Diflucan] 200 mg PO DAILY #7 tab 02/28/24 Ipratropium Neb [Atrovent*] 0.5 mg NEB [id number] PRN #60 amp 02/28/24 Nystatin 5 ml PO TID #250 ml 02/28/24 Nebulizer 1 each MC TID #1 ea 02/29/24 - Past Medical/Surgical History Has patient received pneumonia vaccine in the past: No Diabetic: No -: Tobacco abuse -: GERD -: Hypertension -: COPD -: Lung cancer -: Bladder cancer. -: Left hip surgery. - Family History Family History: Reviewed- Non-Contributory - Social History Smoking Status: Current some day smoker Alcohol use: Yes CD- Drugs: No Caffeine use: Yes Place of Residence: Home Review of Systems 10-point ROS is otherwise unremarkable General: Weakness Other: Mild pain occipital area with no incision. Physical Examination - Physical Exam General: Oriented x2, Cooperative HEENT: Atraumatic, Normocephalic, PERRLA, Other (Dry mucous membrane.), Sclerae nonicteric Neck: Supple, 2+ carotid pulse no bruit, Without JVD or thyroid abnormality Respiratory: Other (No adventitious breath sounds bilateral.) Cardiovascular: Regular rate/rhythm, No gallops, No rubs, No murmurs Gastrointestinal: Normal bowel sounds, Soft and benign, No ascites, No tenderness, No rebound, No guarding Musculoskeletal: No clubbing, No swelling, No erythema, No tenderness, No warmth Integumentary: No breakdown, No cyanosis Neurological: Normal affect, Other (Patient communicated, but appears forgetful at times.) External genitalia: Non-tender - Studies Laboratory Data (last 24 hrs) 06/26/24 06/26/24 06/26/24 17:46 17:46 17:46 WBC 8.90 Hgb 10.7 L Hct 31.0 L Plt Count 195 PT 12.7 INR 1.12 Sodium 138 Potassium 4.2 BUN 20 H Creatinine 1.39 H Glucose 98 Magnesium 1.8 Total Bilirubin 0.4 AST 15 ALT < 14 L Alkaline Phosphatase 96 Male Exam - Male Exam Testicular exam: No masses Assessment and Plan - Plan Patient is an 83-year-old male with current diagnosis of lung cancer receiving chemotherapy, brought to ER today after a syncope episode at home associated with loss of consciousness, with no chest pain or shortness of breath. Patient initial troponin 69.8, denies of any chest pain EKG with no ST abnormalities. (1)Syncope with elevated troponin. On admission assessment, patient with no focal deficit that would be associated to possible stroke, patient CT of the head is negative, patient complaint of generalized body weakness which might be associated to his chemotherapy treatment. -Echocardiogram in a.m.. Order an echocardiogram to rule out cardiac related disease that may be causing patient's syncope. -Order serial troponin. -Consult bacon de rinder to see patient. -Consult social media analyst to see patient to evaluate possible home health services, physical therapy, and provider services. With patient present condition it appears he cannot do that much for himself, and safety is of great consideration. (2)PARISH. Patient states he has not been drinking the water. -IV NS at 75 mL/ hr x 1 L. (3)Chronic GERD. -Omeprazole 40 mg p.o. daily. (5)Lung cancer. Patient currently receiving chemotherapy. -Zofran 4 mg IV as needed every 6 hours for nausea and vomiting related to patient chemotherapy. (6)Explained the entire treatment plan to the patient, and daughter present at the bedside, solicit questions answered and voiced understanding. Discharge Plan: Home - Advance Directives Does patient have a Living Will: No Does patient have a Durable POA for Healthcare: No - Code Status/Comfort Care Code Status Assessed: Yes Code Status: Full Code
[2024-06-26 21:53] VITALS: BMI 19.3
[2024-06-26] MEDS ORDERED: NA CHLORIDE 0.9% 1,000 ML ONE (22:47)
[2024-06-26] MEDS: NA CHLORIDE 0.9% 1,000 ML IV SCH (22:52)
[2024-06-27] MEDS: ALBUTEROL 2.5 MG/3 ML NEB SOL NEB SCH (01:00)
[2024-06-27] MEDS: HEPARIN 5000 UNIT/ML 1 ML VIAL SQ SCH (01:00)
[2024-06-27] MEDS ORDERED: ALBUTEROL 2.5 MG/3 ML NEB SOL ONE ×2 (01:00→09:17)
[2024-06-27] MEDS ORDERED: HEPARIN 5000 UNIT/ML 1 ML VIAL ONE ×3 (01:00→10:06)
[2024-06-27] MEDS ORDERED: PANTOPRAZOLE 40MG TABLET PO ONE (05:43)
[2024-06-27] MEDS: PANTOPRAZOLE 40MG TABLET PO SCH ×2 (05:48→10:14)
[2024-06-27 06:13] LABS: Absolute Basophils 0.1 K/uL (0-0.5); Absolute Eosinophils 0.1 K/uL (0-0.5); Absolute Lymphocytes (CBC) 0.9 K/uL (0.7-4.9); Absolute Monocytes 0.6 K/uL (0.1-1.3); Absolute Neutrophil 4.3 K/uL (1.8-8.0); Basophils % 0.9 % (0-1.3); Hematocrit 28.1 % (39.6-49.0); Hemoglobin 9.5 g/dL (13.6-17.9); Lymphocytes % 14.8 % (15.3-44.8); MCH 31.2 pg (27.0-35.0); MCHC 33.7 g/dL (32.0-36.0); MCV 92.7 fL (80-100); MPV 8.8 fL (7.6-11.3); Monocytes % 10.8 % (3.3-12.3); Neutrophils % 72.5 % (41.7-73.7); Platelets 182 thou/uL (152-406); RBC Red Blood Cell Count 3.03 M/uL (4.33-5.43); Red Cell Distribution Width 15.1 % (12.1-15.2)
[2024-06-27 06:33] LABS: Albumin 2.7 g/dL (3.4-5.0); Albumin/Globulin Ratio 0.8 (1.1-1.8); Anion Gap 7.6 mEq/L (5.0-15.0); Bilirubin Total 0.3 mg/dL (0.2-1.0); Globulin 3.6 g/dL (2.3-3.5); Potassium 3.6 mEq/L (3.5-5.1); Protein, Total 6.3 g/dL (6.4-8.2)
[2024-06-27] MEDS ORDERED: LIDOCAINE 1% 20 ML MDV ONE (10:03)
[2024-06-27] MEDS ORDERED: HEPA 1000U/500MLS 2,000 UNIT/1,000 ML BAG IV ONE (10:03)
[2024-06-27] MEDS ORDERED: ATROPINE SULF 1 MG/10 ML SYR IV ONE (10:04)
[2024-06-27] MEDS ORDERED: FENTANYL CITR 100 MCG/2 ML ONE (10:04)
[2024-06-27] MEDS ORDERED: TICAGRELOR 90 MG TABLET PO ONE (10:04)
[2024-06-27] MEDS ORDERED: CLOPIDOGREL 75 MG TABLET ONE (10:04)
[2024-06-27] MEDS ORDERED: MIDAZOLAM HCL 2 MG/2 ML INJ ONE (10:04)
[2024-06-27] MEDS ORDERED: ASPIRIN 325 MG TAB ONE (10:05)
[2024-06-27] MEDS: VITAMIN D 400 UNIT TAB PO SCH (10:13)
[2024-06-27] MEDS: THIAMINE HCL 100 MG TABLET PO SCH (10:14)
[2024-06-27] MEDS: FAMOTIDINE 20 MG TAB PO SCH (10:14)
--- NOTE | 2024-06-27 10:30 | P.CNS ---
Date of Consult: 06/27/24 Chief Complaint: Syncope, elevated troponin, PARISH. History of Present Illness: Patient with PMH of HTN, Tobacco use, lung cancer, bladder cancer, presented with syncope, he can not recall any symptoms prior except for generalized weakness, no chest pain, no palpitations, no SOB. Allergies No Known Allergies Allergy (Verified 02/26/24 00:10) Home medications list reviewed: Yes Home Medications: Cholecalciferol (Vitamin D3) [Vitamin D3] 400 unit PO DAILY 01/09/20 Cyanocobalamin (Vitamin B-12) [Vitamin B-12] 1,000 mcg PO DAILY 06/17/23 Thiamine HCl 100 mg PO DAILY 06/17/23 Vitamin B Complex [B Complex] 1 each PO DAILY 06/17/23 Pantoprazole [Protonix Tab*] 40 mg PO DAILY 02/26/24 Famotidine [Pepcid] 40 mg PO DAILY 06/27/24 Multivitamin 1 tab PO DAILY 06/27/24 Vit A/Vit C/Vit E/Zinc/Copper [Preservision Areds Softgel] 1 cap PO DAILY 06/27/24 Vitamin B Complex/Folic Acid [Vitamin B Complex Tablet] 0.4 mg PO DAILY 06/27/24 - Past Medical/Surgical History Diabetic: No -: Tobacco abuse -: GERD -: Hypertension -: COPD -: Lung cancer -: Bladder cancer. -: Left hip surgery. - Social History Smoking Status: Former smoker Alcohol use: Yes CD- Drugs: No Caffeine use: Yes Place of Residence: Home Review of Systems 10-point ROS is otherwise unremarkable Physical Examination Temp Pulse Resp BP Pulse Ox 97.5 F 90 18 168/98 H 100 06/27/24 08:00 06/27/24 08:00 06/27/24 08:00 06/27/24 08:00 06/27/24 08:00 General: Alert, In no apparent distress HEENT: Atraumatic, PERRLA, Mucous membr. moist/pink, EOMI, Sclerae nonicteric Neck: Supple, 2+ carotid pulse no bruit, No LAD, Without JVD or thyroid abnormality Respiratory: Clear to auscultation bilaterally, Normal air movement Cardiovascular: Regular rate/rhythm, Normal S1 S2 Gastrointestinal: Normal bowel sounds, No tenderness Musculoskeletal: No tenderness Integumentary: No rashes Neurological: Normal gait, Normal speech, Normal tone, Normal affect Lymphatics: No axilla or inguinal lymphadenopathy Laboratory Data (last 24 hrs) 06/26/24 06/26/24 06/26/24 17:46 17:46 17:46 WBC 8.90 Hgb 10.7 L Hct 31.0 L Plt Count 195 PT 12.7 INR 1.12 Sodium 138 Potassium 4.2 BUN 20 H Creatinine 1.39 H Glucose 98 Magnesium 1.8 Total Bilirubin 0.4 AST 15 ALT < 14 L Alkaline Phosphatase 96 - Problems (1) NSTEMI (non-ST elevated myocardial infarction) Current Visit: Yes Status: Acute Plan: Patient with multiple risk factors NPO for coronary angiogram ASA 81 mg daily Lipitor 40 mg daily get echo (2) Syncope Current Visit: Yes Status: Acute Plan: unsure about etiology yet. monitor on tele coronary angiogram get echo get orthostatic vitals. (3) Lung cancer Current Visit: No Status: Acute Plan: on radiation and chemotherapy.
[2024-06-27] MEDS ORDERED: HEPARIN 10,000 UNIT/10 ML VIAL IV ONE (10:37)
--- NOTE | 2024-06-27 13:09 | ECHO ---
HEIGHT: 5 ft 6 in WEIGHT: 120 lb 0 oz DATE OF STUDY: 06/27/[address]: Silverio Wong NP 2-DIMENSIONAL: YES M.MODE: YES DOPPLER: YES COLOR FLOW: YES TDS: PORTABLE: YES DEFINITY: BUBBLE STUDY: DIAGNOSIS: SYNCOPE/ ELEVATED TROPONIN CARDIAC HISTORY: CATHERIZATION: NO SURGERY: NO PROSTHETIC VALVE: NO PACEMAKER: NO MEASUREMENTS (cm) DIASTOLIC (NORMALS) SYSTOLIC (NORMALS) IVSd 0.9 (0.6-1.2) LA Diam 3.3 (1.9-4.0) LVEF 60-65% LVIDd 2.9 (3.5-5.7) LVIDs 1.7 (2.0-3.5) %FS 41% LVPWd 1.0 (0.6-1.2) Ao Diam 3.0 (2.0-3.7) 2 DIMENSIONAL ASSESSMENT: RIGHT ATRIUM: NORMAL LEFT ATRIUM: NORMAL RIGHT VENTRICLE: NORMAL LEFT VENTRICLE: NORMAL TRICUSPID VALVE: NORMAL MITRAL VALVE: NORMAL PULMONIC VALVE: NORMAL AORTIC VALVE: NORMAL PERICARDIAL EFFUSION: NONE AORTIC ROOT: NORMAL LEFT VENTRICULAR WALL MOTION: NORMAL DOPPLER/COLOR FLOW: NOT ASSESSED COMMENTS: 1. NORMAL LEFT VENTRICULAR SYSTOLIC FUNCTION, EJECTION FRACTION 60-65%, NORMAL WALL MOTION TECHNOLOGIST: SOCORRO ALBERTO
[2024-06-27 15:37] VITALS: O2SAT 98
--- NOTE | 2024-06-27 16:42 | P.DS ---
Admission Date: 06/26/24 Discharge Date: 06/27/24 Disposition: DC HOME/HOME HEALTH CARE Discharge Condition: FAIR Reason for Admission: Syncope, elevated troponin, PARISH. Brief History of Present Illness: 83-year-old male with past medical history of GERD, essential hypertension, lung cancer currently receiving chemotherapy, bladder cancer, COPD, chronic tobacco use disorder, brought to the ER after a reported syncope episode associated with loss of consciousness at home. Patient reporting falling forward and hitting his head. No prior symptoms like chest pain or headache or dizziness or palpitation. CT head done in the emergency department was negative for any acute disease, troponin slightly elevated to 69.8, sinus rhythm on EKG, BNP 1127. Patient was hospitalized for further management. Hospital Course: Diagnosis: Syncope and collapse Orthostatic hypotension NSTEMI Impaired gait. PARISH History of lung cancer Patient was placed under observation on the medical floor, his troponin trended up to 258. Patient was evaluated by cardiology who performed cardiac catheterization given his syncopal episode. Cardiac catheter results revealed [id number] nonobstructive coronary artery disease. Echocardiogram done was unremarkable and showed normal EF Patient was noted to be orthostatic. His syncopal episode is likely secondary to orthostastic hypotension. Patient was briefly hydrated with IV normal saline for acute kidney injury. PARISH resolved with IV hydration. Orthostatic precautions advised. Patient voiced understanding. Patient was able to ambulate with moderate assistance. He already utilizes home health service for PT which was resumed on discharge. Vital Signs/Physical Exam: Temp Pulse Resp BP Pulse Ox 97.6 F 83 17 140/91 H 96 06/27/24 14:00 06/27/24 14:00 06/27/24 14:00 06/27/24 14:00 06/27/24 14:00 General: Alert, In no apparent distress, Oriented x3 HEENT: Mucous membr. moist/pink, Sclerae nonicteric Neck: Supple, JVD not distended Respiratory: Clear to auscultation bilaterally, Normal air movement Cardiovascular: No edema, Regular rate/rhythm, Normal S1 S2 Gastrointestinal: Normal bowel sounds, Soft and benign, Non-distended, No t enderness Integumentary: No rashes, No cyanosis Neurological: Normal strength at 5/5 x4 extr Laboratory Data at Discharge: WBC 5.90 thou/uL (4.3-10.9) 06/27/24 06:04 Hgb 9.5 g/dL (13.6-17.9) L D 06/27/24 06:04 Hct 28.1 % (39.6-49.0) L 06/27/24 06:04 Plt Count 182 thou/uL (152-406) 06/27/24 06:04 PT 12.7 SECONDS (10-13.0) 06/26/24 17:46 INR 1.12 06/26/24 17:46 Sodium 140 mEq/L (136-145) 06/27/24 06:04 Potassium 3.6 mEq/L (3.5-5.1) D 06/27/24 06:04 BUN 23 mg/dL (7-18) H 06/27/24 06:04 Creatinine 1.20 mg/dL (0.70-1.30) 06/27/24 06:04 Glucose 94 mg/dL (74-106) 06/27/24 06:04 Magnesium 1.8 mg/dL (1.6-2.4) 06/26/24 17:46 Total Bilirubin 0.3 mg/dL (0.2-1.0) 06/27/24 06:04 AST 16 U/L (15-37) 06/27/24 06:04 ALT 15 U/L (16-61) L 06/27/24 06:04 Alkaline Phosphatase 87 U/L (45-117) 06/27/24 06:04 Home Medications: Cholecalciferol (Vitamin D3) [Vitamin D3] 400 unit PO DAILY 01/09/20 Cyanocobalamin (Vitamin B-12) [Vitamin B-12] 1,000 mcg PO DAILY 06/17/23 Thiamine HCl 100 mg PO DAILY 06/17/23 Vitamin B Complex [B Complex] 1 each PO DAILY 06/17/23 Pantoprazole [Protonix Tab*] 40 mg PO DAILY 02/26/24 Famotidine [Pepcid] 40 mg PO DAILY 06/27/24 Multivitamin 1 tab PO DAILY 06/27/24 Vit A/Vit C/Vit E/Zinc/Copper [Preservision Areds Softgel] 1 cap PO DAILY 06/27/24 Vitamin B Complex/Folic Acid [Vitamin B Complex Tablet] 0.4 mg PO DAILY 05/13/25 Physician Discharge Instructions: Order to resume home health was sent to: [facility] Home Health P:[phone] F:[phone] Diet: AHA Activity: Fall precautions Followup: Zeenat Viera PA [ALLIED HEALTH PROFESSIONAL] - NONE,NONE [Primary Care Provider] - Time spent managing pt's care (in minutes): 28
[2024-06-27 17:04] VITALS: TEMP 97.3
[2024-06-27 19:21] VITALS: BP 146/80
--- NOTE | 2024-06-27 21:31 | OP ---
Date of Procedure: 06/27/2024 Surgeon: Mo Paez Procedures Performed: Selective coronary angiogram with left heart catheterization. Indication For Procedure: [id number] [place]. Complications: None. Estimated Blood Loss: Less than 50 cc. Access: Right radial, closed by TR band. Sedation Time: 20 minutes with 1 of Versed and 25 of fentanyl. Description Of Procedure: After risks, and benefits, and alternatives were explained to the patient, patient agreed to proceed with procedure and signed informed consent. The patient was brought back to the [facility]ason tender restoration labor, prepped and draped in sterile fashion. Time-out was performed. Sedation was admini stered. Next, right radial access was obtained using ultrasound-guided micropuncture technique. Tig er 4.0 catheter was advanced over a J-wire to the LV cavity. LVEDP was obtained. Pullback did not show any gradient. Same catheter was used for selective angiogram of the left and right coronary sys tems. At the end of procedure, catheter was removed over a J-wire. Sheath was removed. TR band was applied. Hemostasis was achieved. The patient was moved back to recovery in stable condition. Findings: 1. Left main; short, normal. 2. LAD; mild luminal irregularities with mid diffuse 30% disease, then mild luminal irregularities. 3. Left circ; mild luminal irregularities. 4. RCA; large dominant with mid diffuse 40% to 50% disease, then mild luminal irregularities. 5. LVEDP 9 mmHg. Assessment And Plan: [id number] nonobstructive coronary artery disease. Normal filling pressure. Continue medical management. ENEDELIA/VALARIE Voice ID: [id number] Report ID: [id number]
--- NOTE | 2024-06-28 12:24 | EKG ---
Test Date: 2024-06-26 Test Time: 17:35:52 Director Of Home Health Services: DIANNE MEASUREMENT RESULTS: Intervals: Rate: 84 UT: 168 QRSD: 74 QT: 384 QTc: 453 [place]: P: 92 UT: 168 QRS: 56 T: 79 INTERPRETIVE STATEMENTS: Normal sinus rhythm Possible Anterior infarct, age undetermined Abnormal ECG Compared to ECG 03/21/2024 15:45:03 Myocardial infarct finding now present Electronically Signed On 06-28-24 12:21:29 CDT by Mo Paez
== END 2024-06-27 18:28 | disposition home health service (06) ==
LOC: ER 16:45 → ERHOLD 19:41 → 2ND 06-27 12:35
PROVIDERS: ADMIT Internal Medicine; ATTEND Internal Medicine
PROC: 4A023N7 Measurement of Cardiac Sampling and Pressure, Left Heart, Percutaneous Approach (ICD-10-PCS; principal; 2024-06-27)
PROC: B2111ZZ Fluoroscopy of Multiple Coronary Arteries using Low Osmolar Contrast (ICD-10-PCS; 2024-06-27)
DX: I21.4 Non-ST elevation (NSTEMI) myocardial infarction (principal); I25.10 Atherosclerotic heart disease of native coronary artery without angina pectoris; I95.1 Orthostatic hypotension; N17.9 Acute kidney failure, unspecified; I10 Essential (primary) hypertension; R26.89 Other abnormalities of gait and mobility; R53.1 Weakness; C34.90 Malignant neoplasm of unspecified part of unspecified bronchus or lung; C67.9 Malignant neoplasm of bladder, unspecified; J44.9 Chronic obstructive pulmonary disease, unspecified; K21.9 Gastro-esophageal reflux disease without esophagitis; Z87.891 Personal history of nicotine dependence
CPT/HCPCS: 93005; 93306; 85025 ×2; 80048; 36415; 83735; 82550; 85610; 80076; 84484 ×2; 80053; 83880 ×2; 70450; 72125; 71045; 93458; 76937; 97161; 97530; 94640; 94760; 99285; C1893; Q9966; J1644 ×3; J2003; J7613 ×3; J2250; J3010; G0378 ×6; J7030; 99152; 99153; J0461

== ENCOUNTER 2024-12-06 16:01 | Emergency (ER) | payer OTHER ==
[2024-12-06] MEDS ORDERED: NA CHLORIDE 0.9% 1,000 ML ONE ×2 (16:38→19:24)
[2024-12-06] MEDS ORDERED: FAMOTIDINE 20 MG/2 ML VIAL IV ONE (16:38)
[2024-12-06] MEDS ORDERED: Levofloxacin500mg IV 500 MG/100 ML BAG IV ONE (16:38)
[2024-12-06] MEDS ORDERED: DIGOXIN 0.25 MG/ML AMP ONE (16:38)
[2024-12-06 17:09] LABS: Absolute Lymphocytes (CBC) 0.4 K/uL (0.7-4.9); Hematocrit 27.3 % (39.6-49.0); Hemoglobin 9.5 g/dL (13.6-17.9); MCH 33.6 pg (27.0-35.0); MCHC 34.6 g/dL (32.0-36.0); MCV 96.9 fL (80-100); MPV 8.3 fL (7.6-11.3); Nucleated RBC Absolute Count 0.0 (0-0); Nucleated Red Blood Cells % 0.1 % (0-0); RBC Red Blood Cell Count 2.82 M/uL (4.33-5.43); White Blood Count 7.60 thou/uL (4.3-10.9)
[2024-12-06 17:16] LABS: PT Prothrombin Time 13.7 SECONDS (10-13.0); Protime INR 1.22
[2024-12-06 17:28] LABS: AST/SGOT 13 U/L (15-37); Albumin 1.9 g/dL (3.4-5.0); Albumin/Globulin Ratio 0.5 (1.1-1.8); Alkaline Phosphatase 64 U/L (45-117); Anion Gap 8.1 mEq/L (5.0-15.0); BUN Blood Urea Nitrogen 24 mg/dL (7-18); Bilirubin Indirect, Calculated 0.2 mg/dL (0.2-0.8); Globulin 3.6 g/dL (2.3-3.5); Glucose Level 136 mg/dL (74-106); Lipase 15 U/L (13-75); Magnesium 1.5 mg/dL (1.6-2.4); NT PRO-BNP 1098 pg/mL (<450); Potassium 3.1 mEq/L (3.5-5.1); Troponin High Sensitivity 7.7 pg/mL (<58.9)
[2024-12-06] MEDS ORDERED: ENOXAPARIN 100 MG/ML SYR SQ ONE (17:30)
[2024-12-06] MEDS ORDERED: Magnesium Sulfate 2gm IVPB 2 G/50 ML BAG IV ONE (17:30)
[2024-12-06 17:33] LABS: ALT/SGPT < 14 U/L (16-61)
--- NOTE | 2024-12-06 18:03 | EDPHYS ---
Physician Documentation [facility] Name: Frank Manzanares Jr Age: 84 yrs Sex: Male : 1940 Arrival Date: 12/06/2024 Time: 16:01 Bed 2 Private MD: ED Physician Kevin Martinez HPI: 12/06 17:14 This 84 yrs old Male presents to ER via EMS with complaints of HYPOTENSION. karissa 17:14 The patient has shortness of breath at rest, with light activity. Onset: The karissa symptoms/episode began/occurred 1 day(s) ago. Duration: The symptoms are continuous, and are steadily getting worse. The patient's shortness of breath is aggravated by coughing. The patient presents with a history of heart racing. Context: The symptoms occur with light activity. Modifying factors: The symptoms are aggravated by nothing. The symptoms are alleviated by nothing. no hx a fib. Associated signs and symptoms: The patient has no apparent associated signs or symptoms. Historical: - Allergies: 16:19 No Known Allergies; cm10 - PMHx: 16:19 bladder tumor; Chronic obstructive lung disease; GERD; Hypertension; Lung Cancer cm10 (bladder tumor); - PSHx: 16:19 Left hip; cm10 - Immunization history:: Adult Immunizations up to date. - Infectious Disease History:: Denies. - Social history:: Smoking status: unknown. - Family history:: not pertinent. ROS: 17:14 Constitutional: Negative for fever, chills, and weight loss, Eyes: Negative for injury, karissa pain, redness, and discharge, ENT: Negative for injury, pain, and discharge, Neck: Negative for injury, pain, and swelling, Abdomen/GI: Negative for abdominal pain, nausea, vomiting, diarrhea, and constipation, Back: Negative for injury and pain, : Negative for injury, bleeding, discharge, and swelling, MS/Extremity: Negative for injury and deformity, Skin: Negative for injury, rash, and discoloration, Neuro: Negative for headache, weakness, numbness, tingling, and seizure, Psych: Negative for depression, anxiety, suicide ideation, homicidal ideation, and hallucinations, Allergy/Immunology: Negative for hives, rash, and allergies, Endocrine: Negative for neck swelling, polydipsia, polyuria, polyphagia, and marked weight changes, Hematologic/Lymphatic: Negative for swollen nodes, abnormal bleeding, and unusual bruising, 17:14 Cardiovascular: Positive for chest pain, palpitations, 17:14 Cardiovascular: Positive for 17:14 Respiratory: Positive for cough, orthopnea, shortness of breath, at rest. Exam: 17:14 Constitutional: This is a well developed, well nourished patient who is awake, alert, karissa and in no acute distress. Head/Face: Normocephalic, atraumatic. Eyes: Pupils equal round and reactive to light, extra-ocular motions intact. Lids and lashes normal. Conjunctiva and sclera are non-icteric and not injected. Cornea within normal limits. Periorbital areas with no swelling, redness, or edema. ENT: Nares patent. No nasal discharge, no septal abnormalities noted. Tympanic membranes are normal and external auditory canals are clear. Oropharynx with no redness, swelling, or masses, exudates, or evidence of obstruction, uvula midline. Mucous membranes moist. Neck: Trachea midline, no thyromegaly or masses palpated, and no cervical lymphadenopathy. Supple, full range of motion without nuchal rigidity, or vertebral point tenderness. No Meningismus. Chest/axilla: Normal chest wall appearance and motion. Nontender with no deformity. No lesions are appreciated. Respiratory: Lungs have equal breath sounds bilaterally, clear to auscultation and percussion. No rales, rhonchi or wheezes noted. No increased work of breathing, no retractions or nasal flaring. Abdomen/GI: Soft, non-tender, with normal bowel sounds. No distension or tympany. No guarding or rebound. No evidence of tenderness throughout. Back: No spinal tenderness. No costovertebral tenderness. Full range of motion. Male : Normal genitalia with no discharge or lesions. Skin: Warm, dry with normal turgor. Normal color with no rashes, no lesions, and no evidence of cellulitis. MS/ Extremity: Pulses equal, no cyanosis. Neurovascular intact. Full, normal range of motion., bilateral aka Neuro: Awake and alert, GCS 15, oriented to person, place, time, and situation. Cranial nerves II-XII grossly intact. Motor strength 5/5 in all extremities. Sensory grossly intact. Cerebellar exam normal. Normal gait. Psych: Awake, alert, with orientation to person, place and time. Behavior, mood, and affect are within normal limits. 17:14 Cardiovascular: Rate: tachycardic, actual rate is 150 bpm, Rhythm: irregularly irregular, Edema: is not appreciated, JVD: is not appreciated, 17:14 ECG was reviewed by the Attending Physician. Vital Signs: 16:12 BP 55 / 45; Pulse 114; km10 16:16 BP 71 / 53; Pulse 150; Resp 19; Temp 98(O); Pulse Ox 98% on 6 lpm NC; Weight 54.43 kg; cm10 Height 5 ft. 6 in. ; Pain 8/10; 16:33 BP 68 / 50; Pulse 153; km10 16:55 BP 95 / 69; Pulse 137; Resp 22; km10 17:10 BP 119 / 99; Pulse 122; Resp 22; Pulse Ox 94% on 6 lpm NC; km10 17:27 BP 110 / 71; Pulse 121; Resp 25 S; Pulse Ox 94% on 6 lpm NC; km10 17:53 BP 119 / 78; Pulse 110; Resp 21; Pulse Ox 95% on 6 lpm NC; km10 19:00 BP 102 / 66; Pulse 122; Resp 20; Pulse Ox 92% on 6 lpm NC; nh2 19:15 BP 124 / 65; Pulse 125; Resp 20; Pulse Ox 93% on 6 lpm NC; nh2 19:45 BP 117 / 86; Pulse 95; Resp 21; Pulse Ox 92% on 6 lpm NC; nh2 20:15 BP 125 / 97; Pulse 88; Resp 21; Pulse Ox 94% on 6 lpm NC; nh2 20:45 BP 115 / 61; Pulse 88; Resp 19; Pulse Ox 96% on 6 lpm NC; nh2 21:15 BP 141 / 86; Pulse 87; Resp 26; Pulse Ox 95% on 6 lpm NC; nh2 21:50 BP 149 / 90; Pulse 91; Resp 22; Pulse Ox 100% on 6 lpm NC; nh2 22:50 BP 128 / 71; Pulse 97; Resp 25; Temp 97.8(O); Pulse Ox 95% on 6 lpm NC; nh2 23:46 BP 120 / 73; Pulse 94; Resp 19; Pulse Ox 100% on 6 lpm NC; mf3 12/07 00:00 BP 121 / 57; Pulse 96; Resp 22; Pulse Ox 100% on 6 lpm NC; mf3 01:00 BP 138 / 80; Pulse 91; Resp 20; Temp 98.2(O); Pulse Ox 100% on 6 lpm NC; mf3 12/06 16:16 Body Mass Index 19.37 (54.43 kg, 167.64 cm) cm10 16:16 Pain Scale: Adult cm10 [place] Coma Score: 12/06 17:17 Eye Response: spontaneous(4). Motor Response: obeys commands(6). Verbal Response: km10 oriented(5). Total: 15. 17:27 Eye Response: spontaneous(4). Motor Response: obeys commands(6). Verbal Response: km10 oriented(5). Total: 15. MDM: 16:23 Medical Screening Exam initiated karissa 17:18 Differential diagnosis: Anemia Anxiety Reaction asthma, Bronchitis CHF exacerbation, karissa Chronic Obstructive Pulmonary Disease arrythmia, dehydration, stress disorder, Myocardial Infarction pneumonia, Pneumothorax Psychogenic pulmonary edema, Pulmonary Embolism reactive airway disease, Sepsis Unstable Angina. Antibiotic administration: Levaquin given. Differential Diagnosis altered mental status, sepsis, flu. Immunization status: Pneumococcal vaccine: within last 5 years. Influenza vaccine: Data reviewed: vital signs, nurses notes, EMS record, lab test result(s), EKG, radiologic studies, plain films. Consideration of Admission/Observation Escalation of care including admission/observation considered. I considered the following discharge prescriptions or medication management in the emergency department Medications were administered in the Emergency Department. See MAR. Independent interpretation of the following test(s) in the Emergency Department EKG: See my EKG interpretation above. Test considered but Not performed: Ultrasound no 2 d echo. Historians other than the Patient: EMS: ems well informed. Care significantly affected by the following chronic conditions: Hypertension, Chronic Obstructive Pulmonary Disease, Cancer. Post IV fluid administration reassessment for Sepsis: Client prescribed 30 mL/kg IVF. Sepsis focused reassessment complete. Counseling: I had a detailed discussion with the patient and/or guardian regarding the historical points, exam findings, and any diagnostic results supporting the discharge/admit diagnosis, lab results, radiology results, the need for further work-up and treatment in the hospital. 12/06 16:24 Order name: Basic Metabolic Panel; Complete Time: 17:57 karissa 12/06 16:24 Order name: CBC with Diff; Complete Time: 17:22 [facility] 12/06 16:24 Order name: LFT's; Complete Time: 17:57 12/06 16:24 Order name: Magnesium; Complete Time: 17:57 12/06 16:24 Order name: NT PRO-BNP; Complete Time: 17:57 12/06 16:24 Order name: PT-INR; Complete Time: 17:22 12/06 16:24 Order name: Troponin HS; Complete Time: 17:57 12/06 16:24 Order name: UA Rfx Neo Cult if indicated 12/06 16:24 Order name: Lipase; Complete Time: 17:57 12/06 16:24 Order name: Blood Culture Adult (2) 12/06 16:24 Order name: Lactate w/ 2H reflex if indic.; Complete Time: 17:22 12/06 16:24 Order name: XRAY Chest (1 view); Complete Time: 19:07 12/06 17:25 Order name: CT Chest W/ Con; Complete Time: 19:07 12/06 16:24 Order name: EKG; Complete Time: 16:25 12/06 19:53 Order name: EKG; Complete Time: 19:53 [facility] 12/06 16:24 Order name: Cardiac monitoring; Complete Time: 17:15 12/06 16:24 Order name: EKG - Nurse/Tech; Complete Time: 17:16 12/06 16:24 Order name: IV Saline Lock; Complete Time: 17:16 12/06 16:24 Order name: Labs collected and sent; Complete Time: 17:16 12/06 16:24 Order name: O2 Per Protocol; Complete Time: 17:15 12/06 16:24 Order name: O2 Sat Monitoring; Complete Time: 17:17 12/06 16:24 Order name: IV Saline Lock - Large Bore; Complete Time: 17:15 12/06 19:53 Order name: EKG - Nurse/Tech; Complete Time: 20:32 [facility] EC:14 Rate is 145 beats/min. Rhythm is irregularly irregular. QRS [place] is Normal. [place] interval karissa is normal. QRS interval is normal. QT interval is normal. No Q waves. T waves are Normal. No ST changes noted. Clinical impression: NSR w/ Non-specific ST/T Changes and No evidence of ischemia. Interpreted by me. Reviewed by me. Administered Medications: 16:20 Drug: NS 0.9% IV 1000 ml IV at 1000 ml once; to be given as a bolus over 60 minutes 10 Route: IV; Rate: 1000 ml; Site: left antecubital; 17:27 Follow up: Response: No adverse reaction; IV Status: Completed infusion 10 16:40 Drug: Famotidine IVP 20 mg IVP once; dilute with 10 mL 0.9% NaCl; give over 2 minutes 10 Route: IVP; Site: left antecubital; 17:26 Follow up: Response: No adverse reaction 10 16:45 Drug: levofloxacin IVPB 500 mg 100 ml IVPB once over 60 mins Volume: 100 ml; Route: [facility] IVPB; Infused Over: 60 mins; Site: Port-a-cath; 19:00 Follow up: Response: No adverse reaction; IV Status: Completed infusion; IV Intake: nh2 100ml 16:45 Drug: Digoxin IVP 0.5 mg IVP once Route: IVP; Site: left antecubital; 10 17:27 Follow up: Response: No adverse reaction [facility] 17:16 Drug: Metoprolol IVP 2.5 mg IVP once; Hold for SBP <100 or HR <60. {Note: verified with [facility] ED provider that okay to give this medication due to SBP < 100. Provider states to give one 2.5 mg dose at this time.} Route: IVP; Site: Port-a-cath; 19:03 Follow up: Response: No adverse reaction; decreased heart rate [facility] 17:37 Drug: Enoxaparin Sub-Q 1 mg/kg Sub-Q once Route: Sub-Q; Site: left upper arm; 10 19:04 Follow up: Response: No adverse reaction [facility] 17:37 Drug: Magnesium Sulfate IVPB 2 grams IVPB once over 2 hrs Route: IVPB; Infused Over: 2 km10 hrs; Site: Port-a-cath; 20:46 Follow up: Response: No adverse reaction nh2 19:20 Drug: Potassium PO Effervescent Tablet 50 mEq PO once; dissolve in 4 ounces of water or nh2 juice Route: PO; 20:00 Follow up: Response: No adverse reaction nh2 19:20 Drug: NS 0.9% with KCl IV 20 mEq/L 1000 ml IV at 125 ml/hr continuous Route: IV; Rate: nh2 125 ml/hr; Site: left antecubital; 19:50 Drug: NS 0.9% IV 1000 ml IV at 1 bolus Per protocol; to be given as a bolus over 60 nh2 minutes Route: IV; Rate: 1 bolus; Site: Port-a-cath; 21:08 Follow up: IV Status: Completed infusion; IV Intake: 1000ml nh2 19:55 Drug: Metoprolol IVP 2.5 mg IVP once; Hold for SBP <100 or HR <60. Route: IVP; Site: nh2 left antecubital; 20:39 Follow up: Response: No adverse reaction nh2 19:55 Drug: Metoprolol PO 25 mg PO once Route: PO; nh2 20:38 Follow up: Response: No adverse reaction; Cardiac rhythm changed nh2 21:44 Drug: Levalbuterol Inhalation 1.25 mg Inhalation once Route: Inhalation; nh2 22:38 Follow up: Response: No adverse reaction nh2 Disposition Summary: 12/06/24 19:13 Transfer Ordered Notes: Transfer Location: [facility] karissa Reason: Higher level of care karissa Condition: Fair(12/06/24 19:13) karissa Problem: new(12/06/24 19:13) karissa Symptoms: have improved(12/06/24 19:13) karissa Accepting Physician: TO [facility](12/07/24 01:05) mf3 Diagnosis - Dyspnea karissa - COPD/ Chronic obstructive pulmonary disease, unspecified karissa - Malignant neoplasm of lower lobe, right bronchus or lung - MASS OBSTRUCTS RIGHT karissa MAINSTEM BRONCHUS, ATELECTISIS - Hypomagnesemia karissa - Hypokalemia karissa - Persistent atrial fibrillation - WITH RVR karissa - Hypotension, unspecified(12/06/24 19:13) karissa Forms: - Medication Reconciliation Form karissa - SBAR form karissa Signatures: Dispatcher [employer] EDKevin Lopez MD MD cha Nieto, Roman, MD MD rn Martinez, Clarissa, RN RN cm10 Dhaval Roy, Ivan RN TIKA nh2 Kaia Villagran RN RN km10 Liliana Rogers RN RN mf3 Corrections: (The following items were deleted from the chart) 16:25 16:24 BASIC METABOLIC PANEL+C.LAB.BRZ ordered. EDMS EDMS 16:25 16:24 CBC+H.LAB.BRZ ordered. EDMS EDMS 16:25 16:24 HEPATIC FUNCTION+C.LAB.BRZ ordered. EDMS EDMS 16:25 16:24 MAGNESIUM+C.LAB.BRZ ordered. EDMS EDMS 16:25 16:24 PROBNP+C.LAB.BRZ ordered. EDMS EDMS 16:25 16:24 PROTIME (+INR)+COAG.LAB.BRZ ordered. EDMS EDMS 16:25 16:24 Troponin High Sensitivity+C.LAB.BRZ ordered. EDMS EDMS 16:25 16:24 UA Rfx Neo Cult if indicated+U.LAB.BRZ ordered. EDMS EDMS 16:25 16:24 LIPASE+C.LAB.BRZ ordered. EDMS EDMS 16:25 16:24 BLOOD CULTURE*+BA.LAB.BRZ ordered. EDMS EDMS 16:25 16:24 LACTATE+C.LAB.BRZ ordered. EDMS EDMS 19:09 18:02 Inpatient Admission karissa karissa 19:09 18:02 Madhu Oliva [facility] karissa 19:09 18:02 Intensive Care Unit [facility] karissa 19:09 18:02 Fair [facility] karissa 19:09 18:02 new [facility] 19:09 18:02 have improved [facility] 19:09 18:02 Standard [facility] 19:09 18:02 [facility] 19:09 18:02 Hypotension, unspecified karissa karissa 19:09 18:02 Tobacco abuse counseling [facility] 19:09 18:02 Tobacco use karissa [facility] 19:09 18:02 COPD/ Chronic obstructive pulmonary disease with (acute) exacerbation - BLADDER , karissa LUNG CANCER [facility] 19: 18:02 Paroxysmal atrial fibrillation - with RVR karissa [facility] 12/07 01:05 12/06 19:13 TO [facility]
--- NOTE | 2024-12-06 18:03 | ER ---
Nurse's Notes [facility] Name: Frank Manzanares Jr Age: 84 yrs Sex: Male : 1940 Arrival Date: 12/06/2024 Time: 16:01 Bed 2 Private MD: Diagnosis: Dyspnea;COPD/ Chronic obstructive pulmonary disease, unspecified;Malignant neoplasm of lower lobe, right bronchus or lung-MASS OBSTRUCTS RIGHT MAINSTEM BRONCHUS, ATELECTISIS;Hypomagnesemia;Hypokalemia;Persistent atrial fibrillation-WITH RVR;Hypotension, unspecified Presentation: 12/06 16:16 Chief complaint: EMS states: TONED OUT FOR HYPOTENSION. EMS STATES THAT THE LOWEST BP cm10 THEY GOT WAS 60/30. PT RECEIVED NS 500mL and LEVOPHED WAS STARTED BY EMS. Coronavirus screen: Client denies travel out of the [place] in the last 14 days. Ebola Screen: Patient denies travel to an Ebola-affected area in the 21 days before illness onset. Initial Sepsis Screen: Does the patient meet any 2 criteria? No. Patient's initial sepsis screen is negative. Does the patient have a suspected source of infection? No. Patient's initial sepsis screen is negative. Risk Assessment: Do you want to hurt yourself or someone else? Patient reports no desire to harm self or others. Onset of symptoms was December 06, 2024. Care prior to arrival: Medication(s) given: Normal saline infusion, 500 mL, LEVOPHED IV initiated. 18 GA, in the left antecubital area. 16:16 Acuity: HEATHER 2 cm10 16:16 Method Of Arrival: EMS: [facility] cm10 Triage Assessment: 16:10 General: Appears ill, slender. km10 16:10 General: Behavior is cooperative, Reports fatigue for >3 days. Neuro: Level of km10 Consciousness is awake, alert, Oriented to person, place, time, situation, Weakness. Cardiovascular: Rhythm is atrial fibrillation. Respiratory: Reports shortness of breath. Historical: - Allergies: 16:19 No Known Allergies; cm10 - PMHx: 16:19 bladder tumor; Chronic obstructive lung disease; GERD; Hypertension; Lung Cancer cm10 (bladder tumor); - PSHx: 16:19 Left hip; cm10 - Immunization history:: Adult Immunizations up to date. - Infectious Disease History:: Denies. - Social history:: Smoking status: unknown. - Family history:: not pertinent. Screenin:[address] [facility] ED Fall Risk Assessment (Adult) History of falling in the last 3 months, km10 including since admission No falls in past 3 months (0 pts) Confusion or Disorientation No (0 pts) Intoxicated or Sedated No (0 pts) Impaired Gait Yes (1 pt) Mobility Assist Device Used Yes (1 pt) Altered Elimination Yes (1 pt) Score/Fall Risk Level 3 or more points = High Risk Oriented to surroundings, Maintained a safe environment, Educated pt \T\ family on fall prevention, incl call for assistance when getting out of bed, Assessed \T\ reinforced patient's understanding of fall precautions, Hourly rounding (assess needs \T\ fall precautionary measures) done. Abuse screen: Denies threats or abuse. Denies injuries from another. Nutritional screening: No deficits noted. Tuberculosis screening: No symptoms or risk factors identified. Assessment: 16:00 General: Appears ill, slender, cachectic, Behavior is calm, cooperative. Pain: km10 Complains of pain in neck. Neuro: Level of Consciousness is awake, alert, obeys commands, Oriented to person, place, time, situation, Weakness. Cardiovascular: Reports shortness of breath, Rhythm is atrial fibrillation. Respiratory: Reports shortness of breath on exertion Breath sounds are coarse bilaterally. Breath sounds with crackles bilaterally. 16:00 Reassessment: pt states his port was last used for chemotherapy 5 weeks ago, ED km10 provider states it is okay to access port today for use in ER. 17:54 Reassessment: Patient and/or family updated on plan of care and expected duration. Pain km10 level reassessed. Patient states symptoms have improved. 19:05 General: Appears ill, slender, cachectic, Behavior is calm, cooperative. Pain: nh2 Complains of pain in neck Pain currently is 4 out of 10 on a pain scale. Quality of pain is described as aching, Pain began 2-3 days ago. Is intermittent. Neuro: Level of Consciousness is awake, alert, obeys commands, Oriented to person, place, time, situation. Neuro: Freelance Translator are equal bilaterally. Cardiovascular: Denies chest pain, Patient's skin is warm and dry. Rhythm is atrial fibrillation. Respiratory: Respiratory effort is even, unlabored, Breath sounds are coarse bilaterally. Breath sounds with crackles. GI: Abdomen is flat, non-distended, Bowel sounds present X 4 quads. Patient currently denies nausea, vomiting. : No signs and/or symptoms were reported regarding the genitourinary system. EENT: No signs and/or symptoms were reported regarding the EENT system. Derm: Skin is fragile, is thin, Skin is pink, warm \T\ dry. Musculoskeletal: Range of motion: intact in all extremities. 19:20 Reassessment: pt reports having a BM. Pt was cleaned with new brief applied and sheets nh2 changed. 19:40 Reassessment: pt reports having another BM. New brief applied, sheets changed, nh2 repositioned to supine. Call light placed within reach. denies needs or concerns. 20:00 Reassessment: Patient and/or family updated on plan of care and expected duration. Pain nh2 level reassessed. Patient is alert, oriented x 3, equal unlabored respirations, skin warm/dry/pink. 20:00 Cardiovascular: Patient's skin is warm and dry. Rhythm is sinus rhythm. Respiratory: nh2 Respiratory effort is even, unlabored, Breath sounds are coarse Breath sounds with crackles bilaterally. 20:30 Reassessment: pt's family requesting update. MD notified. nh2 21:00 Reassessment: Patient is alert, oriented x 3, equal unlabored respirations, skin nh2 warm/dry/pink. Patient states feeling better. 21:20 Reassessment: pt's family requesting another update. MD notified. nh2 21:32 Reassessment: Dr. Zeng at bedside updating family on plan of care including follow up nh2 care and need for transfer. 22:00 Reassessment: Patient and/or family updated on plan of care and expected duration. Pain nh2 level reassessed. Patient is alert, oriented x 3, equal unlabored respirations, skin warm/dry/pink. Patient denies pain at this time. 22:30 Reassessment: Pt reports having a third BM since 190. Cleaned with new linens, brief, nh2 and purewick applied. Warm blankets provided for comfort. denies needs or concerns at this time. Call light placed within reach. MD notified of third BM. 23:30 Reassessment: Patient and/or family updated on plan of care and expected duration. Pain nh2 level reassessed. Patient is alert, oriented x 3, equal unlabored respirations, skin warm/dry/pink. Patient denies pain at this time. 12/07 00:00 Reassessment: Pt reports having a fourth BM. No blood in stool seen. Cleaned with new mf3 brief and purewick applied. Call light placed within reach, denies needs or concerns. Vital Signs: 12/06 16:12 BP 55 / 45; Pulse 114; km10 16:16 BP 71 / 53; Pulse 150; Resp 19; Temp 98(O); Pulse Ox 98% on 6 lpm NC; Weight 54.43 kg; cm10 Height 5 ft. 6 in. ; Pain 8/10; 16:33 BP 68 / 50; Pulse 153; km10 16:55 BP 95 / 69; Pulse 137; Resp 22; km10 17:10 BP 119 / 99; Pulse 122; Resp 22; Pulse Ox 94% on 6 lpm NC; km10 17:27 BP 110 / 71; Pulse 121; Resp 25 S; Pulse Ox 94% on 6 lpm NC; km10 17:53 BP 119 / 78; Pulse 110; Resp 21; Pulse Ox 95% on 6 lpm NC; km10 19:00 BP 102 / 66; Pulse 122; Resp 20; Pulse Ox 92% on 6 lpm NC; nh2 19:15 BP 124 / 65; Pulse 125; Resp 20; Pulse Ox 93% on 6 lpm NC; nh2 19:45 BP 117 / 86; Pulse 95; Resp 21; Pulse Ox 92% on 6 lpm NC; nh2 20:15 BP 125 / 97; Pulse 88; Resp 21; Pulse Ox 94% on 6 lpm NC; nh2 20:45 BP 115 / 61; Pulse 88; Resp 19; Pulse Ox 96% on 6 lpm NC; nh2 21:15 BP 141 / 86; Pulse 87; Resp 26; Pulse Ox 95% on 6 lpm NC; nh2 21:50 BP 149 / 90; Pulse 91; Resp 22; Pulse Ox 100% on 6 lpm NC; nh2 22:50 BP 128 / 71; Pulse 97; Resp 25; Temp 97.8(O); Pulse Ox 95% on 6 lpm NC; nh2 23:46 BP 120 / 73; Pulse 94; Resp 19; Pulse Ox 100% on 6 lpm NC; mf3 12/07 00:00 BP 121 / 57; Pulse 96; Resp 22; Pulse Ox 100% on 6 lpm NC; 3 01:00 BP 138 / 80; Pulse 91; Resp 20; Temp 98.2(O); Pulse Ox 100% on 6 lpm NC; 3 12/06 16:16 Body Mass Index 19.37 (54.43 kg, 167.64 cm) cm10 16:16 Pain Scale: Adult cm10 Garber Coma Score: 12/06 17:17 Eye Response: spontaneous(4). Motor Response: obeys commands(6). Verbal Response: km10 oriented(5). Total: 15. 17:27 Eye Response: spontaneous(4). Motor Response: obeys commands(6). Verbal Response: km10 oriented(5). Total: 15. ED Course: 16:00 Provided Education on: plan of care. km10 16:00 Noise minimized. Warm blanket given. Pillow given. km10 16:04 Patient arrived in ED. 16:19 Triage completed. 10 16:20 Arm band placed on right wrist. Patient placed in an exam room, on a stretcher, on cm10 oxygen, on monitoring and evaluation advisor, on pulse oximetry. 16:20 Patient has correct armband on for positive identification. Bed in low position. Call cm10 light in reach. Side rails up X2. Client placed on continuous cardiac and pulse oximetry monitoring. NIBP monitoring applied. site monitor on. 16:23 Kevin Martinez MD is Attending Physician. [facility] 17:13 Kaia Villagran RN is Primary Nurse. km10 17:16 Blood Culture Adult (2) Sent. km10 17:18 No provider procedures requiring assistance completed. Maintain EMS IV. IV is patent, km10 with fluids infusing freely, with good blood return, Changed dressing on left saline lock Flushed left antecubital with 5 ml normal saline. Oxygen administration via nasal cannula \T\ 6L/min Response to oxygen therapy: symptoms improved. 17:22 Repositioned patient. Cleaned of incontinence. Linen changed. km10 17:24 XRAY Chest (1 view) In Process Unspecified. EDMS 18:01 Madhu Oliva MD is Hospitalizing Provider. [facility] 18:23 CT Chest W/ Con In Process Unspecified. EDMS 19:05 Report given to Gerardo VILLELA. km10 19:56 initiated transfer with Kimberley Lugo at [facility]. kmf 20:32 Ivan Puentes Jr, TIKA is Primary Nurse. nh2 21:30 Inserted saline lock: 20 gauge in left upper arm, using aseptic technique. Blood mf3 collected. Flushed with 10 mL NS IV discontinued, intact, bleeding controlled, No redness/swelling at site. Pressure dressing applied. 12/07 00:11 pt was accepted to [facility]. Dr. Dottie Pablo \T\1956. Accepting Admin Kimberley Lugo \T\0011. km f [address] [place] [address] Bed 11. Number for nurse to nurse [phone]. 00:32 Report given to TIKA Marsh. bm8 Administered Medications: 12/06 16:20 Drug: NS 0.9% IV 1000 ml IV at 1000 ml once; to be given as a bolus over 60 minutes km10 Route: IV; Rate: 1000 ml; Site: left antecubital; 17:27 Follow up: Response: No adverse reaction; IV Status: Completed infusion 10 16:40 Drug: Famotidine IVP 20 mg IVP once; dilute with 10 mL 0.9% NaCl; give over 2 minutes km10 Route: IVP; Site: left antecubital; 17:26 Follow up: Response: No adverse reaction [facility] 16:45 Drug: levofloxacin IVPB 500 mg 100 ml IVPB once over 60 mins Volume: 100 ml; Route: km10 IVPB; Infused Over: 60 mins; Site: Port-a-cath; 19:00 Follow up: Response: No adverse reaction; IV Status: Completed infusion; IV Intake: nh2 100ml 16:45 Drug: Digoxin IVP 0.5 mg IVP once Route: IVP; Site: left antecubital; 10 17:27 Follow up: Response: No adverse reaction [facility] 17:16 Drug: Metoprolol IVP 2.5 mg IVP once; Hold for SBP <100 or HR <60. {Note: verified with [facility] ED provider that okay to give this medication due to SBP < 100. Provider states to give one 2.5 mg dose at this time.} Route: IVP; Site: Port-a-cath; 19:03 Follow up: Response: No adverse reaction; decreased heart rate [facility] 17:37 Drug: Enoxaparin Sub-Q 1 mg/kg Sub-Q once Route: Sub-Q; Site: left upper arm; km10 19:04 Follow up: Response: No adverse reaction km10 17:37 Drug: Magnesium Sulfate IVPB 2 grams IVPB once over 2 hrs Route: IVPB; Infused Over: 2 km10 hrs; Site: Port-a-cath; 20:46 Follow up: Response: No adverse reaction nh2 19:20 Drug: Potassium PO Effervescent Tablet 50 mEq PO once; dissolve in 4 ounces of water or nh2 juice Route: PO; 20:00 Follow up: Response: No adverse reaction nh2 19:20 Drug: NS 0.9% with KCl IV 20 mEq/L 1000 ml IV at 125 ml/hr continuous Route: IV; Rate: nh2 125 ml/hr; Site: left antecubital; 19:50 Drug: NS 0.9% IV 1000 ml IV at 1 bolus Per protocol; to be given as a bolus over 60 nh2 minutes Route: IV; Rate: 1 bolus; Site: Port-a-cath; 21:08 Follow up: IV Status: Completed infusion; IV Intake: 1000ml nh2 19:55 Drug: Metoprolol IVP 2.5 mg IVP once; Hold for SBP <100 or HR <60. Route: IVP; Site: [facility] left antecubital; 20:39 Follow up: Response: No adverse reaction nh2 19:55 Drug: Metoprolol PO 25 mg PO once Route: PO; nh2 20:38 Follow up: Response: No adverse reaction; Cardiac rhythm changed nh2 21:44 Drug: Levalbuterol Inhalation 1.25 mg Inhalation once Route: Inhalation; nh2 22:38 Follow up: Response: No adverse reaction nh2 Medication: 16:20 VIS not applicable for this client. cm10 Intake: 19:00 IV: 100ml; Total: 100ml. nh2 21:08 IV: 1000ml; Total: 1100ml. nh2 Outcome: 18:02 Decision to Hospitalize by Provider. karissa 19:13 ER care complete, transfer ordered by . karissa 12/07 01:05 Transferred by ground EMS to [facility], Transfer form completed. mf3 X-rays sent w/ patient. Condition: stable Instructed on follow up and referral plans. the need for transfer, Demonstrated understanding of instructions, follow-up care, 01:05 Patient left the ED. mf3 Signatures: Dispatcher [employer] EDMS Kevin Martinez MD MD cha Martinez, Zaina, RN TIKA Mer Grissom RN RN [facility] Gerardo Iverson, RN TIKA 8 Ivan Puentes Jr RN RN nh2 Kaia Villagran RN TIKA [facility] Liliana Rogers RN RN mf3 Corrections: (The following items were deleted from the chart) 12/06 16:20 16:16 BP 71 / 53; Pulse 150bpm; Resp 19bpm; Pulse Ox 98% RA; Temp 98F Oral; 54.43 kg; cm10 Height 5 ft. 6 in.; BMI: 19.3; Pain 8/10, Adult; cm10 17:17 17:16 Metoprolol IVP 2.5 mg IVP in Port-a-cath [place] [id number] 17:23 17:22 Reassessment: pt states his port was last used for chemotherapy 5 weeks ago, ED [facility] provider states it is okay to access port today for use in ER. [facility] 20:39 19:05 Respiratory: Respiratory effort is even, unlabored, Breath sounds are diminished nh2 bilaterally. nh2 20:39 19:05 Cardiovascular: Denies chest pain, Patient's skin is warm and dry. Rhythm is nh2 atrial fibrillation nh2 20:43 20:42 BP 102 / 66; Pulse 122bpm; Resp 20bpm; Pulse Ox 92% 6 lpm Nasal Cannula; nh2 nh2 21:30 19:05 Pain: Complains of pain in head Pain currently is 4 out of 10 on a pain scale. nh2 Quality of pain is described as aching, Pain began 2-3 days ago. Is intermittent, nh2 21:32 21:00 Reassessment: Patient and/or family updated on plan of care and expected nh2 duration. Pain level reassessed. Patient is alert, oriented x 3, equal unlabored respirations, skin warm/dry/pink. Patient states feeling better. nh2 22:43 22:30 Reassessment: Pt reports having a third BM since 1899. Cleaned with new linens, nh2 brief, and purewick applied. Warm blankets provided for comfort. denies needs or concerns at this time. notified of third BM nh2
--- NOTE | 2024-12-06 18:50 | RAD REPORT ---
EXAM; Thorax W/ Con CLINICAL INDICATION: Chest pain TECHNIQUE: Routine CT scan of the chest with 100 cc Isovue-370 intravenous contrast. One or more of t he following dose reduction techniques were used: Automated exposure control, adjustment of the mA and/or kV according to patient size, and/or iterative reconstruction. Unless otherwise specified, inc idental findings do not require dedicated imaging follow-up. [id number]. COMPARISON: October 2024. FINDINGS: 2.4 cm mass compresses the right mainstem bronchus resulting in occlusion. Right atelectasis is prese nt. Several enlarged mediastinal lymph nodes are present. Large loculated right pleural effusion. Small left pleural effusion. Left lung hyperaerated. Several tiny hepatic lesions are too small to characterize. IMPRESSION: Mass compresses and obstructs the right mainstem bronchus resulting in atelectasis. This probably rep resents neoplasm.. Bronchoscopy recommended Mediastinal lymphadenopathy Large loculated right pleural effusion
--- NOTE | 2024-12-06 18:52 | RAD REPORT ---
Procedure: Chest Single View HISTORY: Cough COMPARISON: October 2024 FINDINGS: Large loculated right pleural effusion Opacity/mass obstructs the right mainstem bronchus resulting in atelectasis. Left lung hyperaerated. Heart is normal size. Apparent prominence of the mediastinum is a combination of the atelectasis and lymphadenopathy Central venous catheter in place
[2024-12-06] MEDS ORDERED: NS KCL 20MEQ 1,000 ML IV ONE (19:04)
[2024-12-06] MEDS ORDERED: POTASSIUM 25 MEQ EFFERV TAB ONE (19:04)
[2024-12-06] MEDS ORDERED: METOPROLOL TAR 50 MG TAB ONE (19:53)
[2024-12-06] MEDS ORDERED: METOPROLOL TARTRATE 5 MG/5 ML INJ IV ONE (19:54)
[2024-12-06] MEDS ORDERED: LEVALBUTEROL 1.25 MG/3 ML NEB ONE (21:38)
[2024-12-07 00:04] LABS: Sqamous Epithelial <5 /HPF (None Seen); Urine Culture Reflex Order NOT NEEDED; Urine Microscopic Reflex YN ORDER UMIC
[2024-12-07 04:42] VITALS: O2SAT 100
[2024-12-07 04:45] VITALS: BP 138/80; TEMP 98.2
== END 2024-12-07 01:05 | disposition short-term general hospital (02) ==
LOC: ER 16:01
DX: J44.9 Chronic obstructive pulmonary disease, unspecified (principal); C34.31 Malignant neoplasm of lower lobe, right bronchus or lung; I95.9 Hypotension, unspecified; I48.19 Other persistent atrial fibrillation; E83.42 Hypomagnesemia; E87.6 Hypokalemia
CPT/HCPCS: 93005 ×2; 87040 ×2; 85025; 81001; 80048; 36415; 83735; 85610; 80076; 83605; 84484; 83690; 83880; 71260; 71045; 96372; 99285; Q9967; J1650; J3475; J1160; J7614; J7030 ×2; J3480